=== PATIENT | female | born 1930 | race Caucasian/White ===

== ENCOUNTER 2021-07-24 17:13 | Inpatient (IN) | payer MEDICARE, OTHER ==
[~2021-07-24] VITALS: Ht 167.6 cm; Wt 69.2 kg
[~2021-07-24 17:13] MED LIST: AMLO-187 PO; APIX5TAB PO; ASPI-886 PO; CITA10TA8 PO; LEVO75TA5 PO; METO25TA4 PO; PANT40TA77 PO
[2021-07-24 17:53] LABS: BASO % 0 % (0-3); EOS % 0 % (0-3); HEMATOCRIT 27.1 % (36.0-47.0); HEMOGLOBIN 8.9 g/dL (12.0-15.5); LYMPH # 4.9 x10^3/uL (1.0-4.8); LYMPH % 41 % (24-48); MEAN CORPUSCULAR HEMOGLOBIN 31 pg (25-35); MEAN CORPUSCULAR HGB CONC 33 g/dL (31-37); MEAN CORPUSCULAR VOLUME 95 fL (79-100); MONO # 0.6 x10^3/uL (0.0-1.1); MONO % 5 % (0-9); NEUT # 6.5 x10^3/uL (1.8-7.7); NEUT % 54 % (31-73); PLATELET COUNT 285 x10^3/uL (140-400); RED BLOOD COUNT 2.86 x10^6/uL (3.50-5.40); RED CELL DISTRIBUTION WIDTH 14.5 % (11.5-14.5); WHITE BLOOD COUNT 12.1 x10^3/uL (4.0-11.0)
[2021-07-24 18:04] LABS: CALCIUM 8.7 mg/dL (8.5-10.1); CREATININE 2.2 mg/dL (0.6-1.0); POTASSIUM 5.5 mmol/L (3.5-5.1)
[2021-07-24 18:09] LABS: ALBUMIN 3.5 g/dL (3.4-5.0); MAGNESIUM 2.1 mg/dL (1.8-2.4); TOTAL BILIRUBIN 0.5 mg/dL (0.2-1.0); TOTAL PROTEIN 6.9 g/dL (6.4-8.2)
[2021-07-24] MEDS ORDERED: FUROSEMIDE 20 MG/2 ML VIAL. IVP ONE (19:00)
[2021-07-24] MEDS ORDERED: AZITHROMYCIN 500 MG in IV NORMAL SALINE 250ML 250 ML IV ONE (19:00)
[2021-07-24] MEDS ORDERED: cefTRIAXone IV Push 1 GM VIAL. IVP ONE (19:00)
--- NOTE | 2021-07-24 19:02 | PHYS DOC ---
Past Medical History Additional Past Medical Histor: DVT, colon cancer, home oxygen Past Surgical History: Appendectomy, Cholecystectomy, Hip Replacement, Pacemaker, Tonsillectomy Additional Past Surgical Histo: Clot retrieved from L arm, colon resection Smoking Status: Former Smoker Alcohol Use: None General Adult EDM: Chief Complaint: SHORTNESS OF BREATH HPI: HPI: Patient is a 89 year old female with history of DVT on apixaban, A. fib, pacemaker, CHF EF 45%, dementia who presents with cough and shortness of breath. She does seem to be a poor historian, but provides the following history. Patient states that this has been going on for the past 2 days and is progressively worsened. Is on home O2 2 L/min. Was noted to be hypoxic in the 80s on her home O2 earlier today. She states that she "feels hot", but denies fever. States that she was recently discharged from pacemaker placement and spent 2 weeks in a correction facility. Was discharged to home approximately 4 days ago. Denies any sick contacts. Denies chest pain. Denies lower extremity edema, however there is edema readily apparent on exam. Symptoms are better with sitting upright, worse with lying flat. RN spoke with patient's daughter who adds that her symptoms are worse at night and that she has been complaining about a sacral bed sore that developed at the SNF. Review of Systems: Review of Systems: Constitutional: Denies fever or chills. [] Eyes: Denies change in visual acuity. [] HENT: Denies nasal congestion or sore throat. [] Respiratory: Reports cough and shortness of breath Cardiovascular: Denies chest pain or edema. [] GI: Denies abdominal pain, nausea, vomiting, bloody stools or diarrhea. [] : Denies dysuria. [] Musculoskeletal: Denies back pain or joint pain. [] Integument: Denies rash. [] Neurologic: Denies headache, focal weakness or sensory changes. [] Psychiatric: Denies depression or anxiety. [] Heart Score: C/O Chest Pain: No Current Medications: Current Medications Medications (Trade) Dose Ordered Sig/Tor Start Time Stop Time Status Last Admin Dose Admin Azithromycin 500 mg/Sodium Chloride 250 ml @ 250 mls/hr 1X ONCE 07/24/21 19:00 07/24/21 19:59 UNV Ceftriaxone Sodium (Rocephin) 1 gm 1X ONCE 07/24/21 19:00 07/24/21 19:01 UNV Allergies: Allergies: Allergies Coded Allergies Type Severity Reaction Last Updated Verified Penicillins Allergy Intermediate 07/04/21 Yes Physical Exam: PE: Constitutional: Coughing, appears deconditioned and mildly ill. Nontoxic. No di stress. HENT: Normocephalic, atraumatic Neck: Normal range of motion, no tenderness, supple, no stridor. [] Cardiovascular:Heart rate regular rhythm, no murmur [] Lungs & Thorax: Crackles in the lower lung field Abdomen: Bowel sounds normal, soft, no tenderness, no masses, no pulsatile masses. [] Skin: Warm, dry, no erythema, no rash. [] Extremities: Pitting edema bilaterally to the level of the knee, grossly symmetric. Neurologic: Alert and oriented X 3, normal motor function, normal sensory function, no focal deficits noted. [] Psychologic: Affect normal, judgement normal, mood normal. [] Current Patient Data: Labs: Laboratory Tests Test 07/24/21 17:27 White Blood Count 12.1 x10^3/uL (4.0-11.0) H Red Blood Count 2.86 x10^6/uL (3.50-5.40) L Hemoglobin 8.9 g/dL (12.0-15.5) L Hematocrit 27.1 % (36.0-47.0) L Mean Corpuscular Volume 95 fL (79-100) Mean Corpuscular Hemoglobin 31 pg (25-35) Mean Corpuscular Hemoglobin Concent 33 g/dL (31-37) Red Cell Distribution Width 14.5 % (11.5-14.5) Platelet Count 285 x10^3/uL (140-400) Neutrophils (%) (Auto) 54 % (31-73) Lymphocytes (%) (Auto) 41 % (24-48) Monocytes (%) (Auto) 5 % (0-9) Eosinophils (%) (Auto) 0 % (0-3) Basophils (%) (Auto) 0 % (0-3) Neutrophils # (Auto) 6.5 x10^3/uL (1.8-7.7) Lymphocytes # (Auto) 4.9 x10^3/uL (1.0-4.8) H Monocytes # (Auto) 0.6 x10^3/uL (0.0-1.1) Eosinophils # (Auto) 0.0 x10^3/uL (0.0-0.7) Basophils # (Auto) 0.0 x10^3/uL (0.0-0.2) Sodium Level 135 mmol/L (136-145) L Potassium Level 5.5 mmol/L (3.5-5.1) H Chloride Level 98 mmol/L (98-107) Carbon Dioxide Level 29 mmol/L (21-32) Anion Gap 8 (6-14) Blood Urea Nitrogen 49 mg/dL (7-20) H Creatinine 2.2 mg/dL (0.6-1.0) H Estimated GFR (Cockcroft-Gault) 21.0 BUN/Creatinine Ratio 22 (6-20) H Glucose Level 117 mg/dL (70-99) H Calcium Level 8.7 mg/dL (8.5-10.1) Magnesium Level 2.1 mg/dL (1.8-2.4) Total Bilirubin 0.5 mg/dL (0.2-1.0) Aspartate Amino Transferase (AST) 27 U/L (15-37) Alanine Aminotransferase (ALT) 26 U/L (14-59) Alkaline Phosphatase 47 U/L (46-116) Troponin I High Sensitivity 24 ng/L (4-50) EH-Abb-L-Type Natriuretic Peptide 06198 pg/mL (0-449) H Total Protein 6.9 g/dL (6.4-8.2) Albumin 3.5 g/dL (3.4-5.0) Albumin/Globulin Ratio 1.0 (1.0-1.7) Laboratory Tests 07/24/21 17:27 Laboratory Tests 07/24/21 17:27 Vital Signs: Vital Signs Date Time Temp Pulse Resp B/P (MAP) Pulse Ox O2 Delivery O2 Flow Rate FiO2 07/24/21 17:19 98.3 24 161/81 (107) 98 Nasal Cannula 2.0 98.3 EKG: EKG: Paced rhythm. Rate 65. [] Radiology/Procedures: Radiology/Procedures: [] Impression: [facility] [address] [place], [place] [id number] IMAGING REPORT Signed PATIENT: GEOVANNA GATES MACCOUNT: [id number] : 1930 LOCATION: [facility] AGE: 89 SEX: F EXAM STATUS: ADM IN ORD. PHYSICIAN: VALARIE CASEY DO REASON: dyspnea PROCEDURE: PORTABLE CHEST 1V EXAM: XR CHEST 1V 07/24/2021 6:40 PM CLINICAL INDICATION: Dyspnea COMPARISON: Chest radiograph 07/04/2021 TECHNIQUE: AP upright view of the chest FINDINGS: A single lead pacemaker is unchanged. Cardiomegaly is stable. There are calcifications in the thoracic aorta. The lungs are adequately expanded. No significant change in small bilateral pleural effusions. Slightly increased bilateral peripheral opacities, which could be related to pulmonary vascular congestion or infiltrates. IMPRESSION: 1. Cardiomegaly and small bilateral pleural effusions. 2. Slightly increased peripheral opacities, which could be related to pulmonary vascular congestion or infiltrates. Electronically signed by: Christine Milligan MD (07/24/2021 9:31 PM) [id number] DICTATED and SIGNED BY: CHRISTINE MILLIGAN MD DATE: 07/24/21 [id number] 0 Course & Med Decision Making: Course & Med Decision Making Pertinent Labs and Imaging studies reviewed. (See chart for details) Patient 89-year-old female with history of CHF, A. fib with pacemaker, dementia, DVT on apixaban who presents with cough and shortness of breath. On exam appears volume overloaded with lower extremity edema, lower lung field crackles concerning for CHF exacerbation. White count was mildly elevated, and x-ray was concerning for RML/RLL infiltrate, so CTX and azithro was given. Potassium 5.5. No ekg changes. CKD is stable. Will be addressed with lasix 20 mg and will be admitted to telemetry monitoring. Dragon Disclaimer: Dragon Disclaimer: This electronic medical record was generated, in whole or in part, using a voice recognition dictation system. Departure Departure Impression: Primary Impression: Pneumonia Additional Impressions: CHF (congestive heart failure) Dyspnea Chronic respiratory failure with hypoxia Hyperkalemia CKD (chronic kidney disease) Disposition: ADMITTED INPATIENT Admitting Physician: BRIDGER (Grant) Condition: STABLE Referrals: KASHIF PASTOR (PCP) MEAGAN MENESES MD Jul 24, 2021 19:02
[2021-07-24] MEDS ORDERED: ONDANSETRON PF 4 MG/2 ML VIAL. IVP ONE (20:15)
[2021-07-24 20:45] VITALS: BP 130/74
[2021-07-24] MEDS: APIXABAN 2.5 MG TABLET. PO SCH (21:00)
--- NOTE | 2021-07-24 21:33 | RAD ---
EXAM: XR CHEST 1V 07/24/2021 6:40 PM CLINICAL INDICATION: Dyspnea COMPARISON: Chest radiograph 07/04/2021 TECHNIQUE: AP upright view of the chest FINDINGS: A single lead pacemaker is unchanged. Cardiomegaly is stable. There are calcifications in the thoracic aorta. The lungs are adequately expanded. No significant change in small bilateral pleur al effusions. Slightly increased bilateral peripheral opacities, which could be related to pulmonary vascular congestion or infiltrates. IMPRESSION: 1. Cardiomegaly and small bilateral pleural effusions. 2. Slightly increased peripheral opacities, which could be related to pulmonary vascular congestion o r infiltrates. Electronically signed by: Christine Mliligan MD (07/24/2021 9:31 PM) [id number]
[2021-07-24 23:50] VITALS: BP 166/68
[2021-07-25 01:36] LABS: INFLUENZA A PATIENT NEGATIVE (NEGATIVE); INFLUENZA B PATIENT NEGATIVE (NEGATIVE)
[2021-07-25 03:34] VITALS: BP 130/59
[2021-07-25 07:00] VITALS: BP 149/71
--- NOTE | 2021-07-25 08:26 | EKG ---
[facility] [address] [place] [address] Test Date: 2021-07-24 Test Time: 17:58:48 Pat Name: GEOVANNA GATES Department: Room: 506 Gender: F Non Cdl Driver: : 1930 Requested By: VALARIE CASEY Order Number: [id number] Reading MD: Francesco Palafox Measurements Intervals [place] Rate: 65 P: MN: QRS: -68 QRSD: 160 T: 103 QT: 456 QTc: 475 Interpretive Statements ATRIAL FIBRILLATION DEMAND VENTRICULAR PACING ABNORMAL LEFT AXIS DEVIATION NON SPECIFIC INTRAVENTRICULAR BLOCK QRS(T) CONTOUR ABNORMALITY CONSISTENT WITH ANTEROLATERAL INFARCT PROBABLY OLD ABNORMAL ECG Electronically Signed On 07-28-2021 14:11:42 ENGINEER CHIEF by Francesco Palafox
[2021-07-25] MEDS: APIXABAN 2.5 MG TABLET. PO SCH ×2 (10:18→20:40)
--- NOTE | 2021-07-25 10:56 | HP ---
DATE OF SERVICE: 07/25/2021 ADMIT DATE: 07/24/2021 CHIEF COMPLAINT: Shortness of breath. HISTORY OF PRESENT ILLNESS: The patient is a pleasant elderly female who presented to the ER last night with shortness of breath. While in the ER, we did some imaging and some labs. Her chest x-ray is showing vascular congestion and pneumonia and effusions. Her BNP level was high at 14,357. I discussed the case with the ER physician. We are admitting the patient. PAST MEDICAL HISTORY: DVT, colon cancer, hypoxia, she is on home oxygen, appendectomy, cholecystectomy, hip replacement, pacemaker, tonsillectomy, left arm clot removed, colon resection, previous tobacco abuse, chronic anticoagulation, GERD, hypothyroidism. ALLERGIES: PENICILLIN. FAMILY HISTORY: Diabetes. SOCIAL HISTORY: She quit smoking. No drink or drugs. MEDICATIONS: Reviewed. Please refer to the MRAD. REVIEW OF SYSTEMS: GENERAL: No history of weight change, weakness or fevers. SKIN: No bruising, hair changes or rashes. EYES: No blurred, double or loss of vision. NOSE AND THROAT: No history of nosebleeds, hoarseness or sore throat. HEART: No history of palpitations, chest pain or shortness of breath on exertion. LUNGS: She complains of shortness of breath. GASTROINTESTINAL: Denies changes in appetite, nausea, vomiting, diarrhea or constipation. GENITOURINARY: No history of frequency, urgency, hesitancy or nocturia. NEUROLOGIC: Denies history of numbness, tingling, tremor or weakness. PSYCHIATRIC: No history of panic, anxiety or depression. ENDOCRINE: No history of heat or cold intolerance, polyuria or polydipsia. EXTREMITIES: Denies muscle weakness, joint pain, pain on walking or stiffness. PHYSICAL EXAMINATION: VITALS: Within normal limits and are stable. GENERAL: No apparent distress. Alert and oriented. HEENT: Normal cephalic atraumatic, external auditory canals are patent. Eyes: Extraocular muscles are intact, pupils are equally round and reactive to light and accommodation. MUSCULOSKELETAL: Well developed, well nourished, good range of motion. ENDOCRINE: No thyromegaly was palpated. LYMPHATICS: No cervical chain or axillary nodes were noted. HEMATOPOIETIC: No bruising. NECK: Supple, no JVD, no thyromegaly was noted. LUNGS: She has bibasilar crackles. HEART: RRR, S1, S2 present. Peripheral pulses intact, no obvious murmurs were noted. ABDOMEN: Soft, nontender. Positive bowel sounds, no organomegaly, normal bowel sounds. EXTREMITIES: Without any cyanosis, clubbing, or edema. Pedal pulses intact, Homans sign is negative. NEUROLOGIC: Normal speech, normal tone. A and O x 3, moves all extremities, no obvious focal deficits. PSYCHIATRIC: Normal affect, normal mood. Stable. SKIN: No ulcerations or rashes, good skin turgor, no jaundice. VASCULAR: Good capillary refill, neurovascular bundle appears to be intact. LABORATORY DATA: Electrolytes: Sodium 135, potassium 5.5, BUN is high at 49, creatinine is 2.2. White count 12, hemoglobin 8.9, platelets 285. COVID testing is negative. Chest x-ray shows vascular congestion, some small pleural effusions and a possible pneumonia. ASSESSMENT AND PLAN: Multifactorial respiratory failure and acute on chronic renal failure. The patient has been admitted. We are starting IV antibiotics. Consult Nephrology. Cardiac monitoring. O2 per nasal cannula. She got 1 dose of Lasix. We will consult Cardiology and see if they would like to continue the Lasix. Home meds. Deep venous thrombosis prophylaxis. Full code. Prognosis guarded. JUAN PABLO/EDUARD DR: [place] TID: [id number]
[2021-07-25 11:00] VITALS: BP 144/63
--- NOTE | 2021-07-25 13:43 | NUR ---
SS following for discharge planning. SS reviewed pt chart and discussed with pt RN. Pt is skilled rehabilitation resident from [facility], ; fax [phone]. COVID19 test pending for placement. Pt is currently requiring oxygen at four liters nasal canula. PT/OT orders requested for placement. Cardiology and Nephrology consulted. SS will continue to follow for discharge planning.
[2021-07-25 15:00] VITALS: BP 130/62
[2021-07-25] MEDS ORDERED: APIX2.5T PO (16:26)
[2021-07-25] MEDS ORDERED: LEVO100T5 PO (16:26)
--- NOTE | 2021-07-25 16:42 | NUR ---
Nurse's note: Spoke with the patient's daughter, Sara Geronimo twice today. This nurse gave updates and clarified patient's medications. Per the patient's daughter, Citlaly had pressure sores on her bottom since discharge from the rehab facility.
[2021-07-25] MEDS ORDERED: DOCU100C28 PO (17:01)
[2021-07-25] MEDS: AZITHROMYCIN 250 MG TABLET. PO SCH (18:04)
[2021-07-25] MEDS: ASPIRIN ENTERIC COATED 81 MG TABLET.DR. PO SCH (18:04)
[2021-07-25] MEDS: CITALOPRAM 10 MG TABLET. PO SCH (18:04)
[2021-07-25 19:00] VITALS: BP 133/71
[2021-07-25] MEDS: cefTRIAXone IV Push 1 GM VIAL. IVP SCH (20:33)
[2021-07-25] MEDS: ONDANSETRON PF 4 MG/2 ML VIAL. IVP PRN (20:33)
[2021-07-25] MEDS: DOCUSATE SODIUM 100 MG CAPSULE. PO SCH (20:40)
[2021-07-25] MEDS: METOPROLOL TART IMMED RELEASE 25 MG TABLET. PO SCH (20:40)
[2021-07-25 23:00] VITALS: BP 130/72
[2021-07-26] MEDS: ACETAMINOPHEN 325 MG TABLET. PO PRN ×3 (01:59→19:35)
[2021-07-26] MEDS: ONDANSETRON PF 4 MG/2 ML VIAL. IVP PRN ×2 (02:00→09:30)
[2021-07-26] MEDS: fentaNYL PF VIAL 100 MCG/2 ML VIAL IVP PRN (02:30)
[2021-07-26 03:00] VITALS: BP 146/67
[2021-07-26 07:00] VITALS: BP 135/78
--- NOTE | 2021-07-26 10:58 | PDOC ---
[employer] PROGRESS NOTE Date of Service DOS: DATE: 07/26/21 TIME: 10:49 Chief Complaint Chief Complaint Multifactorial respiratory failure with pneumonia and CHF DVT, colon cancer, hypoxia, she is on home oxygen, appendectomy, cholecystectomy, hip replacement, pacemaker, tonsillectomy, left arm clot removed, colon resection, previous tobacco abuse, chronic anticoagulation, GERD, hypothyroidism. History of Present Illness History of Present Illness 07/26/2021 Patient seen and examined Discussed with RN Chart reviewed Vitals/I&O Vitals/I&O: Vital Signs Date Time Temp Pulse Resp B/P (MAP) Pulse Ox O2 Delivery O2 Flow Rate FiO2 07/26/21 07:00 98.1 71 18 135/78 (97) 97 Nasal Cannula 5.0 98.1 I & O 07/25/21 07/25/21 07/26/21 15:00 23:00 07:00 Output Total 200 ml Balance -200 ml Physical Exam General: mild distress, Other (Pleasant somewhat confused) Heart: Regular rate Lungs: Crackles Abdomen: Normal bowel sounds Extremities: No clubbing Skin: No rashes Assessment and Plan Assessmemt and Plan Problems Medical Problems: (1) CHF (congestive heart failure) Status: Acute (2) Chronic respiratory failure with hypoxia Status: Acute (3) CKD (chronic kidney disease) Status: Acute (4) Dyspnea Status: Acute (5) Hyperkalemia Status: Acute (6) Pneumonia Status: Acute Multifactorial respiratory failure with pneumonia and CHF DVT, colon cancer, hypoxia, she is on home oxygen, appendectomy, cholecystectomy, hip replacement, pacemaker, tonsillectomy, left arm clot removed, colon resection, previous tobacco abuse, chronic anticoagulation, GERD, hypothyroidism. Plan IV antibiotics Plus minus Lasix per cardiology Cardiac monitoring Beta agonist Oxygen Home meds DVT prophylaxis Full code Trend labs Encourage p.o. intake Probably need [facility] in a couple days Long-term prognosis guarded Comment Review of Relevant I have reviewed the following items yuly (where applicable) has been applied. Medications: Current Medications Medications (Trade) Dose Ordered Sig/Tor Route PRN Reason Start Time Stop Time Status Last Admin Dose Admin Amlodipine Besylate (Norvasc) 10 mg DAILY PO 07/25/21 17:00 07/25/21 18:04 Aspirin (Ecotrin) 81 mg DAILYWBKFT PO 07/25/21 17:00 07/25/21 18:04 Citalopram Hydrobromide (CeleXA) 10 mg DAILY PO 07/25/21 17:00 07/25/21 18:04 Ceftriaxone Sodium (Rocephin) 1 gm Q24H IVP 07/25/21 20:00 07/25/21 20:33 Azithromycin (Zithromax) 250 mg DAILY PO 07/25/21 19:00 07/28/21 09:01 07/25/21 18:04 Ondansetron HCl (Zofran) 4 mg PRN Q4HRS PRN IVP NAUSEA/VOMITING 07/25/21 20:30 07/26/21 09:30 Acetaminophen (Tylenol) 650 mg PRN Q6HRS PRN PO MILD PAIN / TEMP > 100.3'F 07/26/21 01:45 07/26/21 01:59 Fentanyl Citrate (Fentanyl 2ml Vial) 25 mcg PRN Q3HRS PRN IVP SEVERE PAIN 7-10 07/26/21 02:30 07/26/21 02:30 Justifications for Admission Other Justification JENNIE CHACON III DO Jul 26, 2021 10:58
[2021-07-26 11:00] VITALS: BP 168/76
--- NOTE | 2021-07-26 11:17 | PDOC2 ---
CONSULT Date of Consult Date of Consult DATE: 07/26/21 TIME: 10:54 History of Present Illness Reason for Visit: Patient is a 89 year old female with history of DVT on apixaban, A. fib, pacemaker, CHF EF 45%, dementia who presents with cough and shortness of breath.She is a poor historian Above symptoms were going on for 2 days prior to coming to the ER and progressively worsened. Breathing better with sitting upright, worse with lying flatShe is on home O2 2 L/min. Was noted to be hypoxic in the 80s on her home O2 earlier today. No reported fever.She was recently discharged from pacemaker placement and spent 2 weeks in a residential facility. Was discharged to home approximately 4 days ago.Denies any sick contacts. Denies chest pain.Denies lower extremity edema, however there is edema readily apparent on exam. Denies any N/V/D. No abdominal pain . No urinary complaints She c/o sacral bed sore that developed at the SNF. Resting in bed. States she cant breath. Appears comfortable . On O2 by NC Past Medical History Cardiovascular: AFIB, CAD, CHF, HTN, Hyperlipidemia Heme/Onc: Other Musculoskeletal: Osteoarthritis Past Surgical History Past Surgical History: Other Family History Family History: Family History Unknown Social History ALCOHOL: none Drugs: None Lives: with Family Current Problem List Problem List Problems Medical Problems: (1) CHF (congestive heart failure) Status: Acute (2) Chronic respiratory failure with hypoxia Status: Acute (3) CKD (chronic kidney disease) Status: Acute (4) Dyspnea Status: Acute (5) Hyperkalemia Status: Acute (6) Pneumonia Status: Acute Current Medications Current Medications Current Medications Ceftriaxone Sodium (Rocephin) 1 gm 1X ONCE IVP Last administered on 07/24/21at 19:54; Start 07/24/21 at 19:00; Stop 07/24/21 at 19:01; Status DC Azithromycin 500 mg/Sodium Chloride 250 ml @ 250 mls/hr 1X ONCE IV Last administered on 07/24/21at 19:48; Start 07/24/21 at 19:00; Stop 07/24/21 at 19:59; Status DC Furosemide (Lasix) 20 mg 1X ONCE IVP Last administered on 07/24/21at 19:53; Start 07/24/21 at 19:00; Stop 07/24/21 at 19:01; Status DC Apixaban (Eliquis) 2.5 mg BID PO Last administered on 07/25/21at 10:18; Start 07/24/21 at 21:00 Ondansetron HCl (Zofran) 4 mg 1X ONCE IVP Last administered on 07/24/21at 20:07; Start 07/24/21 at 20:15; Stop 07/24/21 at 20:16; Status DC Amlodipine Besylate (Norvasc) 10 mg DAILY PO Last administered on 07/25/21at 18:04; Start 07/25/21 at 17:00 Aspirin (Ecotrin) 81 mg DAILYWBKFT PO Last administered on 07/25/21at 18:04; Start 07/25/21 at 17:00 Citalopram Hydrobromide (CeleXA) 10 mg DAILY PO Last administered on 07/25/21at 18:04; Start 07/25/21 at 17:00 Levothyroxine Sodium (Synthroid) 100 mcg DAILY07 PO ; Start 07/26/21 at 07:00 Metoprolol Tartrate (Lopressor) 25 mg BID PO ; Start 07/25/21 at 21:00 Pantoprazole Sodium (Protonix) 40 mg DAILYAC PO ; Start 07/26/21 at 07:30 Ascorbic Acid (Vitamin C) 500 mg DAILY PO ; Start 07/26/21 at 09:00 Multivitamins (Thera M Plus) 1 tab DAILY PO ; Start 07/26/21 at 09:00 Ceftriaxone Sodium (Rocephin) 1 gm Q24H IVP Last administered on 07/25/21at 20:33; Start 07/25/21 at 20:00 Azithromycin (Zithromax) 250 mg DAILY PO Last administered on 07/25/21at 18:04; Start 07/25/21 at 19:00; Stop 07/28/21 at 09:01 Docusate Sodium (Colace) 100 mg BID PO ; Start 07/25/21 at 21:00 Ondansetron HCl (Zofran) 4 mg PRN Q4HRS PRN IVP NAUSEA/VOMITING Last administered on 07/26/21at 09:30; Start 07/25/21 at 20:30 Acetaminophen (Tylenol) 650 mg PRN Q6HRS PRN PO MILD PAIN / TEMP > 100.3'F Last administered on 07/26/21at 01:59; Start 07/26/21 at 01:45 Fentanyl Citrate (Fentanyl 2ml Vial) 25 mcg PRN Q3HRS PRN IVP SEVERE PAIN 7-10 Last administered on 07/26/21at 02:30; Start 07/26/21 at 02:30 Active Scripts Active Celexa (Citalopram Hydrobromide) 10 Mg Tablet 10 Mg PO DAILY 30 Days Aspirin Ec (Aspirin) 81 Mg Tablet. 81 Mg PO DAILYWBKFT 30 Days Amlodipine Besylate 10 Mg Tablet 10 Mg PO DAILY 30 Days Reported Docusate Sodium 100 Mg Capsule 1 Cap PO BID 15 Days Levothyroxine Sodium 100 Mcg Tablet 1 Tab PO DAILY Eliquis (Apixaban) 2.5 Mg Tablet 2.5 Mg PO BID Metoprolol Tartrate 25 Mg Tablet 1 Tab PO BID Pantoprazole Sodium (Pantoprazole Sodium) 40 Mg Tablet. 40 Mg PO DAILYAC Allergies Allergies: Coded Allergies: Penicillins (Verified Allergy, Intermediate, 07/04/21) ROS Review of System As per HPI, rest of the ROS is negative Physical Exam Physical Exam General: No acute distress HEENT: Mucous membr. moist/pink Neck Supple Abd soft, NT Lungs CTA, non labored CV S1S2 Skin: No breakdown, No significant lesion Neuro: Grossly normal. Has Dx of Dementia Psych/Mental Status: Mental status NL, Mood NL Extremities: No cyanosis, Other (1-2+ bilateral LE pitting edema) Vital Signs Vital Signs Date Time Temp Pulse Resp B/P (MAP) Pulse Ox O2 Delivery O2 Flow Rate FiO2 07/26/21 07:00 98.1 71 18 135/78 (97) 97 Nasal Cannula 5.0 98.1 Assessment & Plan ENMA vs CKD - Cardiorenal Baseline Creat in Jun 2021 2.1 ; Renal function stable at presentation. No labs since 07/24 Baseline renal function unava ilable . Maintain fluid balance. Strict I/O ( ? accuracy ) , supportive care, avoid Nephrotoxins . Check Renal US HyperKalemia K 5.5 POA; No labs since 07/24 . FU labs Acute Resp Failure - O2 5 Lts by NC (Home 02 2 lts ) Abnormal CxR Cardiomegaly and small bilateral pleural effusions. Slightly increased peripheral opacities, which could be related to pulmonary vascular c ongestion or infiltrates. Cardiology consulted Atrial fibrillation - per cardiology SSS, tachy-chang syndrome with significant pause. S/p single-chamber permanent pacemaker implantation recently Valvular heart disease; echo with mild to moderate and mild to moderate TR. Estimated PAP 70-75 mmHg. Cardiomyopathy; LVEF 45% with global hypokinesis of the LV Dementia Hypertension, labile Labs Labs Laboratory Tests Test 07/24/21 17:27 07/25/21 00:55 White Blood Count 12.1 x10^3/uL (4.0-11.0) Red Blood Count 2.86 x10^6/uL (3.50-5.40) Hemoglobin 8.9 g/dL (12.0-15.5) Hematocrit 27.1 % (36.0-47.0) Mean Corpuscular Volume 95 fL (79-100) Mean Corpuscular Hemoglobin 31 pg (25-35) Mean Corpuscular Hemoglobin Concent 33 g/dL (31-37) Red Cell Distribution Width 14.5 % (11.5-14.5) Platelet Count 285 x10^3/uL (140-400) Neutrophils (%) (Auto) 54 % (31-73) Lymphocytes (%) (Auto) 41 % (24-48) Monocytes (%) (Auto) 5 % (0-9) Eosinophils (%) (Auto) 0 % (0-3) Basophils (%) (Auto) 0 % (0-3) Neutrophils # (Auto) 6.5 x10^3/uL (1.8-7.7) Lymphocytes # (Auto) 4.9 x10^3/uL (1.0-4.8) Monocytes # (Auto) 0.6 x10^3/uL (0.0-1.1) Eosinophils # (Auto) 0.0 x10^3/uL (0.0-0.7) Basophils # (Auto) 0.0 x10^3/uL (0.0-0.2) Sodium Level 135 mmol/L (136-145) Potassium Level 5.5 mmol/L (3.5-5.1) Chloride Level 98 mmol/L (98-107) Carbon Dioxide Level 29 mmol/L (21-32) Anion Gap 8 (6-14) Blood Urea Nitrogen 49 mg/dL (7-20) Creatinine 2.2 mg/dL (0.6-1.0) Estimated GFR (Cockcroft-Gault) 21.0 BUN/Creatinine Ratio 22 (6-20) Glucose Level 117 mg/dL (70-99) Calcium Level 8.7 mg/dL (8.5-10.1) Magnesium Level 2.1 mg/dL (1.8-2.4) Total Bilirubin 0.5 mg/dL (0.2-1.0) Aspartate Amino Transf (AST/SGOT) 27 U/L (15-37) Alanine Aminotransferase (ALT/SGPT) 26 U/L (14-59) Alkaline Phosphatase 47 U/L (46-116) Troponin I High Sensitivity 24 ng/L (4-50) XV-Vyg-Y-Type Natriuretic Peptide 58331 pg/mL (0-449) Total Protein 6.9 g/dL (6.4-8.2) Albumin 3.5 g/dL (3.4-5.0) Albumin/Globulin Ratio 1.0 (1.0-1.7) Coronavirus (COVID-19)(PCR) Not detected (NOT DETECTD) Influenza Type A Antigen Negative (NEGATIVE) Influenza Type B Antigen Negative (NEGATIVE) SARS-CoV-2 Antigen (Rapid) Negative (NEGATIVE) Review All relevant outside records, renal labs, imaging studies, telemetry/EKG's were reviewed. Images Images EXAM: XR CHEST 1V 07/24/2021 6:40 PM CLINICAL INDICATION: Dyspnea COMPARISON: Chest radiograph 07/04/2021 TECHNIQUE: AP upright view of the chest FINDINGS: A single lead pacemaker is unchanged. Cardiomegaly is stable. There are calcifications in the thoracic aorta. The lungs are adequately expanded. No significant change in small bilateral pleural effusions. Slightly increased bilateral peripheral opacities, which could be related to pulmonary vascular congestion or infiltrates. IMPRESSION: 1. Cardiomegaly and small bilateral pleural effusions. 2. Slightly increased peripheral opacities, which could be related to pulmonary vascular congestion or infiltrates. RITA KIRAN MD Jul 26, 2021 11:17
[2021-07-26] MEDS: MULTIVITAMIN with MINERAL TABLET. PO SCH (11:30)
[2021-07-26] MEDS: LEVOTHYROXINE 100 MCG TABLET PO SCH (11:31)
[2021-07-26] MEDS: CITALOPRAM 10 MG TABLET. PO SCH (11:31)
[2021-07-26] MEDS: PANTOPRAZOLE 40 MG TABLET.DR. PO SCH (11:31)
[2021-07-26] MEDS: ASCORBIC ACID 500 MG TABLET PO SCH (11:31)
[2021-07-26] MEDS: AZITHROMYCIN 250 MG TABLET. PO SCH (11:31)
[2021-07-26] MEDS: DOCUSATE SODIUM 100 MG CAPSULE. PO SCH ×2 (11:31→20:31)
[2021-07-26] MEDS: ASPIRIN ENTERIC COATED 81 MG TABLET.DR. PO SCH (11:31)
[2021-07-26] MEDS: METOPROLOL TART IMMED RELEASE 25 MG TABLET. PO SCH ×2 (11:31→20:39)
[2021-07-26] MEDS: APIXABAN 2.5 MG TABLET. PO SCH ×2 (11:31→20:39)
--- NOTE | 2021-07-26 11:59 | NUR ---
Wound/Ostomy Care Wound Type/Assessment: Wound care consult for coccyx wound. 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 Cleansed, measured, and assessed wound. Treatment Recommendations/Plan: Cleanse wound, apply honey alginate and foam dressing. Change every 2-3 days. Education provided: PU prevention and WC POC discussed with pt. Offloading surface/device: TQ2H, pt is a self turn. Float heels Recommended Referrals/Tests: na Discharge Recommendations for dressings: see above
--- NOTE | 2021-07-26 12:17 | PDOC2 ---
APRYL KU ACQUISITION COST ESTIMATOR 07/26/21 1217: CARDIAC CONSULT DATE OF CONSULT Date of Consult DATE: 07/26/21 TIME: 12:01 REASON FOR CONSULT Reason for Consult: CHF REFERRING PHYSICIAN Referring Physician: Grant SOURCE Source: Chart review HISTORY OF PRESENT ILLNESS HISTORY OF PRESENT ILLNESS This is an 89 yo female admitted for complains shortness of breath and cough. No chest pain. She was noted with hypoxia with O2 sat in the 80s despite home O2. This has been ongoing in the last 3 days. She was at SNU and discharge to home about 4 days ago. She is known for presumed NICM with EF 45% with tachybrady syndrome with AFIB and recently had a PPM late last month. She has orthopnea but no significnat leg swelling. She is a poor historian. Currently she still have some SOA. but no CP. PAST MEDICAL HISTORY Cardiovascular: CAD, CHF, HTN, Hyperlipidemia, Aortic stenosis, Pulmonary hypertension, Other (tachybrady syndrome) Pulmonary: Pulmonary embolus CENTRAL NERVOUS SYSTEM: Dementia Heme/Onc: Other (DVT) Musculoskeletal: Osteoarthritis Renal/: Chronic renal insuff PAST SURGICAL HISTORY Past Surgical History: Pacemaker, Other (bowel resection) FAMILY HISTORY Family History: Family History Unknown SOCIAL HISTORY Smoke: No ALCOHOL: none Drugs: None Lives: with Family CURRENT MEDICATIONS CURRENT MEDICATIONS Current Medications Medications (Trade) Dose Ordered Sig/Tor Route PRN Reason Start Time Stop Time Status Last Admin Dose Admin Amlodipine Besylate (Norvasc) 10 mg DAILY PO 07/25/21 17:00 07/26/21 11:30 Aspirin (Ecotrin) 81 mg DAILYWBKFT PO 07/25/21 17:00 07/26/21 11:31 Citalopram Hydrobromide (CeleXA) 10 mg DAILY PO 07/25/21 17:00 07/26/21 11:31 Levothyroxine Sodium (Synthroid) 100 mcg DAILY07 PO 07/26/21 07:00 07/26/21 11:31 Metoprolol Tartrate (Lopressor) 25 mg BID PO 07/25/21 21:00 07/26/21 11:31 Pantoprazole Sodium (Protonix) 40 mg DAILYAC PO 07/26/21 07:30 07/26/21 11:31 Ascorbic Acid (Vitamin C) 500 mg DAILY PO 07/26/21 09:00 07/26/21 11:31 Multivitamins (Thera M Plus) 1 tab DAILY PO 07/26/21 09:00 07/26/21 11:30 Ceftriaxone Sodium (Rocephin) 1 gm Q24H IVP 07/25/21 20:00 07/25/21 20:33 Azithromycin (Zithromax) 250 mg DAILY PO 07/25/21 19:00 07/28/21 09:01 07/26/21 11:31 Docusate Sodium (Colace) 100 mg BID PO 07/25/21 21:00 07/26/21 11:31 Ondansetron HCl (Zofran) 4 mg PRN Q4HRS PRN IVP NAUSEA/VOMITING 07/25/21 20:30 07/26/21 09:30 Acetaminophen (Tylenol) 650 mg PRN Q6HRS PRN PO MILD PAIN / TEMP > 100.3'F 07/26/21 01:45 07/26/21 01:59 Fentanyl Citrate (Fentanyl 2ml Vial) 25 mcg PRN Q3HRS PRN IVP SEVERE PAIN 7-10 07/26/21 02:30 07/26/21 02:30 ALLERGIES ALLERGIES: Coded Allergies: Penicillins (Verified Allergy, Intermediate, 07/04/21) ROS Review of System limited poor historian PHYSICAL EXAM General: Alert, Cooperative, No acute distress HEENT: Atraumatic, Mucous membr. moist/pink Lungs: Other (basilar crackles) Heart: Other (AFIB with 4/6 ARANZA systolic murmur) Abdomen: Soft Extremities: No cyanosis, Other (trace to 1+ bilateral LE pitting edema) Skin: No rashes Neuro: Normal speech, Sensation intact Psych/Mental Status: Other (pleasant, appears confused) MUSCULOSKELETAL: Osteoarthritic changes both hands VITALS/I&O VITALS/I&O: Vital Signs Date Time Temp Pulse Resp B/P (MAP) Pulse Ox O2 Delivery O2 Flow Rate FiO2 07/26/21 11:31 71 135/78 07/26/21 08:00 Nasal Cannula 5.0 07/26/21 07:00 98.1 18 97 98.1 I & O 07/25/21 07/25/21 07/26/21 15:00 23:00 07:00 Output Total 200 ml Balance -200 ml ECHOCARDIOGRAM ECHOCARDIOGRAM <Conclusion> The ejection fraction is mildly impaired. Estimated ejection fraction 45%. There is global hypokinesis of the left ventricle. There is severe valvular aortic stenosis visually. By doppler criteria, there is mild to moderate stenosis with MG of 20 mm Hg. Doppler and Color Flow revealed mild ro moderate tricuspid regurgitation. Estimated PAP 70-75 mmHg. Doppler and Color Flow revealed mild pulmonic valvular regurgitation. There is a small pericardial effusion without echocardiographic evidence of tamponade. DATE: 07/02/21 [id number] ASSESSMENT/PLAN ASSESSMENT/PLAN 1 Acute on chronic systolic/systolic CHF: still feels some SOA 2. ENMA with hyperkalemia: nephrology consulted 3. recent PE 4. Valvular heart disease; echo with mild to moderate and mild to moderate TR. Estimated PAP 70-75 mmHg. 5. Cardiomyopathy; LVEF 45% with global hypokinesis of the LV 6. Dementia 7. Hypertension, labile episodes 8. SSS, tachy-chang syndrome: S/P PPM biotronik 9. severe pulmonary HTN 10. Persistent AFIB: rate controlled with intermittent pacing 11. PPM in situ: on 07/03/2021 left chest incision well approximated with steristrips. LUE sling in place Recommendations Presently with nausea and with small vomit, would not be able to tolerate kayaxelate at this time, If not able to keep anything down then will start IVF maintenance. Still has SOA. albuterol x1 and lasix x1 Continue eliquis low dose. Metoprolol for rate control No ACEi/ARB Follow up in our office with Dr. Arboleda as scheduled FELIPE ARBOLEDA MD 07/26/21 1427: CARDIAC CONSULT ASSESSMENT/PLAN ASSESSMENT/PLAN Patient seen and examined. Agree with [facility]'s assessment and plan. Acute on chronic systolic heart failure better compensated Persistent atrial fibrillation rate controlled Nephrology following for acute renal insufficiency SSS s/p PPM clinically stable Continue Eliquis for stroke prophylaxis Thank you for your consultation APRYL KU APRN Jul 26, 2021 12:17 FELIPE ARBOLEDA MD Jul 26, 2021 14:27
--- NOTE | 2021-07-26 12:44 | RAD ---
EXAM: Renal sonogram. HISTORY: Acute renal injury. TECHNIQUE: Sonographic imaging the kidneys and bladder was performed. COMPARISON: None. FINDINGS: The kidneys are normal in size. No solid or cystic renal lesion is seen. There is no hydron ephrosis. The bladder is unremarkable. IMPRESSION: Sonographically unremarkable kidneys. Electronically signed by: Alyssa Kulkarni MD (07/26/2021 12:41 PM) [id number]
[2021-07-26 13:29] LABS: CALCIUM 8.6 mg/dL (8.5-10.1); CREATININE 2.3 mg/dL (0.6-1.0)
[2021-07-26 13:32] LABS: POTASSIUM 5.6 mmol/L (3.5-5.1)
[2021-07-26] MEDS ORDERED: FUROSEMIDE 40 MG/4 ML VIAL. IVP ONE (13:45)
[2021-07-26] MEDS: ALBUTEROL SULFATE 2.5 MG/3 ML NEBU. NEB PRN ×3 (14:04→22:00)
[2021-07-26 15:00] VITALS: BP 134/60
--- NOTE | 2021-07-26 16:19 | NUR ---
SW following. Discussed with RN, per Esthela () note pt from [facility] - SW unable to reach [facility] to verify, COVID-19 negative. No PT/OT ordered - SW requesting this be ordered. KATEY will continue to follow. Addendum: 07/29/21 at 0809 by GREYSON DEL TORO Late note - KATEY spoke with Roxy at [facility], pt was discharged home from [facility] on 07/22, had in fact appealed her discharge and insurance denied her appeal.
[2021-07-26 19:00] VITALS: BP 125/58
[2021-07-26] MEDS: cefTRIAXone IV Push 1 GM VIAL. IVP SCH (20:39)
[2021-07-26] MEDS: LACTOBACILLUS RHAMNOSUS GG 1 CAPSULE. PO SCH (20:39)
--- NOTE | 2021-07-26 20:45 | NUR ---
Pt given HS meds crushed in applesauce. Pt took a drink of water afterwards, and started coughing/gagging after swallowing. Pt became diaphoretic and c/o SOA and chest pain. Oxygen level down to 64% on 5L/NC, oxygen turned up to 15L/NC with minimal increase in oxygen level so NRB placed at 15L as well. Encouraged pt to cough, unable to take a deep breath. Rapid response called, see note from [facility].
--- NOTE | 2021-07-26 21:35 | NUR ---
Rapid response note: Pt started to cough and vomit after taking evening meds that were crushed and placed in applesauce and taking a drink of water. Pt c/o chest pain briefly after vomiting and was diaphoretic. O2 increased to 15 liters NC and 15 liters Non rebreather with sats in the mid to upper 80's. EKG obtained with no acute changes and a chest xray ordered. O2 sats improved to upper 90's and O2 decreased to [address] Mcneill notified of pt condition and of EKG and chest xray orders and sats in the low 90's on 12 liters. Instructed to leave pt on unit, to call with chest xray results if it is worsening for lasix orders, get daily weights, and to keep pt head elevated tonight. Pt remained alert and oriented the entire time and denies any pain. O2 decreased to 10L NC and sats are in the mid 90's.
[2021-07-26 23:00] VITALS: BP 122/66
--- NOTE | 2021-07-26 23:47 | RAD ---
XR CHEST 1V History: Low O2 sat Comparison: 07/24/2021. Technique: Portable AP radiograph of the chest. Findings: The lungs are adequately inflated. There is redemonstrated left greater than right pleural effusions. Lower lobe and perihilar opacities appear increased from comparison. Left chest single lead cardiac pacemaker. No pneumothorax. Enlarged cardiac silhouette. No acute osseous abnormality. Impression: 1. Redemonstrated left greater than right pleural effusions with increasing perihilar and basilar op acities. Findings may represent pulmonary edema. Superimposed infection cannot be excluded.. Electronically signed by: Sohan Sapp MD (07/26/2021 11:45 PM) [facility]
[2021-07-27 03:28] VITALS: BP 131/71
[2021-07-27 05:27] LABS: CALCIUM 8.4 mg/dL (8.5-10.1); CREATININE 2.4 mg/dL (0.6-1.0); POTASSIUM 5.1 mmol/L (3.5-5.1)
[2021-07-27 07:00] VITALS: BP 133/77
[2021-07-27] MEDS: PANTOPRAZOLE 40 MG TABLET.DR. PO SCH (08:47)
[2021-07-27] MEDS: METOPROLOL TART IMMED RELEASE 25 MG TABLET. PO SCH ×2 (08:47→20:20)
[2021-07-27] MEDS: CITALOPRAM 10 MG TABLET. PO SCH (08:47)
[2021-07-27] MEDS: AZITHROMYCIN 250 MG TABLET. PO SCH (08:47)
[2021-07-27] MEDS: ASPIRIN ENTERIC COATED 81 MG TABLET.DR. PO SCH (08:47)
[2021-07-27] MEDS: LACTOBACILLUS RHAMNOSUS GG 1 CAPSULE. PO SCH ×2 (08:47→20:20)
[2021-07-27] MEDS: DOCUSATE SODIUM 100 MG CAPSULE. PO SCH ×2 (08:48→20:20)
[2021-07-27] MEDS: APIXABAN 2.5 MG TABLET. PO SCH ×2 (08:48→20:20)
[2021-07-27] MEDS: LEVOTHYROXINE 100 MCG TABLET PO SCH (08:48)
[2021-07-27] MEDS: ASCORBIC ACID 500 MG TABLET PO SCH (08:48)
[2021-07-27] MEDS: MULTIVITAMIN with MINERAL TABLET. PO SCH (08:48)
--- NOTE | 2021-07-27 10:48 | PDOC ---
[employer] PROGRESS NOTE Date of Service DOS: DATE: 07/27/21 TIME: 10:42 Chief Complaint Chief Complaint Multifactorial respiratory failure with pneumonia and CHF Appendectomy Cholecystectomy Hip replacement Pacemaker Tonsillectomy Left arm clot removed Colon resection Previous tobacco abuse Chronic anticoagulation GERD Hypothyroidism History of Present Illness History of Present Illness 07/27/2021 Patient seen and examined at bedside this morning Patient states she "still is not breathing well" Discussed with RN RN states patient had a rapid response yesterday Chart reviewed 07/26/2021 Patient seen and examined Discussed with RN Chart reviewed Vitals/I&O Vitals/I&O: Vital Signs Date Time Temp Pulse Resp B/P (MAP) Pulse Ox O2 Delivery O2 Flow Rate FiO2 07/27/21 08:47 78 133/77 07/27/21 07:00 98.0 20 98 Nasal Cannula 98.0 07/26/21 22:30 8.0 I & O 07/26/21 07/26/21 07/27/21 15:00 23:00 07:00 Intake Total 120 ml 50 ml Output Total 200 ml Balance 120 ml -150 ml Physical Exam General: Alert, Cooperative, moderate distress (Patient is short of breath; Exhibits 3-4 word dyspnea) Heart: Other (AFIB with 4/6 ARANZA systolic murmur) Lungs: Wheezing (Bilateral wheezing, breathing through pursed lips), Crackles Abdomen: Soft Extremities: No cyanosis, Other (trace to 1+ bilateral LE pitting edema) Skin: No rashes Labs Labs: Laboratory Tests Test 07/26/21 12:40 07/26/21 21:02 07/27/21 04:20 Sodium Level 142 mmol/L (136-145) 141 mmol/L (136-145) Potassium Level 5.6 mmol/L (3.5-5.1) 5.1 mmol/L (3.5-5.1) Chloride Level 102 mmol/L (98-107) 103 mmol/L (98-107) Carbon Dioxide Level 33 mmol/L (21-32) 33 mmol/L (21-32) Anion Gap 7 (6-14) 5 (6-14) Blood Urea Nitrogen 48 mg/dL (7-20) 48 mg/dL (7-20) Creatinine 2.3 mg/dL (0.6-1.0) 2.4 mg/dL (0.6-1.0) Estimated GFR (Cockcroft-Gault) 20.0 19.0 Glucose Level 114 mg/dL (70-99) 89 mg/dL (70-99) Calcium Level 8.6 mg/dL (8.5-10.1) 8.4 mg/dL (8.5-10.1) Glucose (Fingerstick) 160 mg/dL (70-99) Assessment and Plan Assessmemt and Plan Problems Medical Problems: (1) CHF (congestive heart failure) Status: Acute (2) Chronic respiratory failure with hypoxia Status: Acute (3) CKD (chronic kidney disease) Status: Acute (4) Dyspnea Status: Acute (5) Hyperkalemia Status: Acute (6) Pneumonia Status: Acute Assessment Multifactorial respiratory failure with PNA and CHF DVT Colon cancer Hypoxia (on home oxygen) Plan IV antibiotics Cardio and nephro following Plus minus Lasix per nephrology and cardiology Cardiac monitoring Beta agonist Oxygen Home meds DVT prophylaxis Do Not Resuscitate Trend labs Encourage p.o. intake Probably need care home in a couple days Long-term prognosis guarded Comment Review of Relevant I have reviewed the following items yuly (where applicable) has been applied. Medications: Current Medications Medications (Trade) Dose Ordered Sig/Tor Route PRN Reason Start Time Stop Time Status Last Admin Dose Admin Albuterol Sulfate (Ventolin Neb Soln) 2.5 mg PRN Q4HRS PRN NEB SHORTNESS OF BREATH 07/26/21 12:30 07/26/21 22:00 Furosemide (Lasix) 40 mg 1X ONCE IVP 07/26/21 13:45 07/26/21 13:48 DC 07/26/21 16:45 Lactobacillus Rhamnosus (Culturelle) 1 cap BID PO 07/26/21 21:00 07/27/21 08:47 Justifications for Admission Other Justification JENNIE CHACON III DO Jul 27, 2021 10:48
[2021-07-27 11:00] VITALS: BP 138/66
--- NOTE | 2021-07-27 14:09 | PDOC ---
PROGRESS NOTES Date of Service DATE: 07/27/21 TIME: 14:07 Subjective Subjective SEEN IN FOLLOW UP OF CKD4 Objective Objective Vital Signs Date Time Temp Pulse Resp B/P (MAP) Pulse Ox O2 Delivery O2 Flow Rate FiO2 07/27/21 11:00 97.7 69 20 138/66 (90) 94 Nasal Cannula 97.7 07/27/21 08:00 6.0 Intake and Output 07/27/21 07:00 Intake Total 170 ml Output Total 200 ml Balance -30 ml Intake Oral 170 ml Output Urine Total 200 ml # Voids 2 Physical Exam Abdomen: Normal bowel sounds, Soft, No tenderness, No hepatosplenomegaly, No masses Heart: Regular rate, Normal S1, Normal S2, No murmurs, Gallops Extremities: No clubbing, No cyanosis, No edema, Normal pulses, No tenderness/swelling General: Alert Lungs: Other (BILATERAL RHONCHI) Psych/Mental Status: Mental status NL, Mood NL Diagnosis RENAL FAILURE: Chronic (CKD stage IV) Assessment Assessment Problems Medical Problems: (1) CHF (congestive heart failure) Status: Acute (2) Chronic respiratory failure with hypoxia Status: Acute (3) CKD (chronic kidney disease) Status: Acute (4) Dyspnea Status: Acute (5) Hyperkalemia Status: Acute (6) Pneumonia Status: Acute Plan Plan of Care SHE APPEARS TO HAVE CKD4. HER RENAL US IS UNREMARKABLE. CONT RX FOR PNEUMONIA Comment Review of Relevant I have reviewed the following items yuly (where applicable) has been applied. Labs Laboratory Tests Test 07/26/21 12:40 07/26/21 21:02 07/27/21 04:20 Sodium Level 142 mmol/L (136-145) 141 mmol/L (136-145) Potassium Level 5.6 mmol/L (3.5-5.1) 5.1 mmol/L (3.5-5.1) Chloride Level 102 mmol/L (98-107) 103 mmol/L (98-107) Carbon Dioxide Level 33 mmol/L (21-32) 33 mmol/L (21-32) Anion Gap 7 (6-14) 5 (6-14) Blood Urea Nitrogen 48 mg/dL (7-20) 48 mg/dL (7-20) Creatinine 2.3 mg/dL (0.6-1.0) 2.4 mg/dL (0.6-1.0) Estimated GFR (Cockcroft-Gault) 20.0 19.0 Glucose Level 114 mg/dL (70-99) 89 mg/dL (70-99) Calcium Level 8.6 mg/dL (8.5-10.1) 8.4 mg/dL (8.5-10.1) Glucose (Fingerstick) 160 mg/dL (70-99) Laboratory Tests Test 07/26/21 21:02 07/27/21 04:20 Glucose (Fingerstick) 160 mg/dL (70-99) Sodium Level 141 mmol/L (136-145) Potassium Level 5.1 mmol/L (3.5-5.1) Chloride Level 103 mmol/L (98-107) Carbon Dioxide Level 33 mmol/L (21-32) Anion Gap 5 (6-14) Blood Urea Nitrogen 48 mg/dL (7-20) Creatinine 2.4 mg/dL (0.6-1.0) Estimated GFR (Cockcroft-Gault) 19.0 Glucose Level 89 mg/dL (70-99) Calcium Level 8.4 mg/dL (8.5-10.1) Medications Current Medications Ceftriaxone Sodium (Rocephin) 1 gm 1X ONCE IVP Last administered on 07/24/21at 19:54; Start 07/24/21 at 19:00; Stop 07/24/21 at 19:01; Status DC Azithromycin 500 mg/Sodium Chloride 250 ml @ 250 mls/hr 1X ONCE IV Last administered on 07/24/21at 19:48; Start 07/24/21 at 19:00; Stop 07/24/21 at 19:59; Status DC Furosemide (Lasix) 20 mg 1X ONCE IVP Last administered on 07/24/21at 19:53; Start 07/24/21 at 19:00; Stop 07/24/21 at 19:01; Status DC Apixaban (Eliquis) 2.5 mg BID PO Last administered on 07/27/21at 08:48; Start 07/24/21 at 21:00 Ondansetron HCl (Zofran) 4 mg 1X ONCE IVP Last administered on 07/24/21at 20:07; Start 07/24/21 at 20:15; Stop 07/24/21 at 20:16; Status DC Amlodipine Besylate (Norvasc) 10 mg DAILY PO Last administered on 07/27/21 08:47; Start 07/25/21 at 17:00 Aspirin (Ecotrin) 81 mg DAILYWBKFT PO Last administered on 07/27/21 08:47; Start 07/25/21 at 17:00 Citalopram Hydrobromide (CeleXA) 10 mg DAILY PO Last administered on 07/27/21 08:47; Start 07/25/21 at 17:00 Levothyroxine Sodium (Synthroid) 100 mcg DAILY07 PO Last administered on 07/27/21 08:48; Start 07/26/21 at 07:00 Metoprolol Tartrate (Lopressor) 25 mg BID PO Last administered on 07/27/21 08:47; Start 07/25/21 at 21:00 Pantoprazole Sodium (Protonix) 40 mg DAILYAC PO Last administered on 07/27/21 08:47; Start 07/26/21 at 07:30 Ascorbic Acid (Vitamin C) 500 mg DAILY PO Last administered on 07/27/21 08:48; Start 07/26/21 at 09:00 Multivitamins (Thera M Plus) 1 tab DAILY PO Last administered on 07/27/21 08:48; Start 07/26/21 at 09:00 Ceftriaxone Sodium (Rocephin) 1 gm Q24H IVP Last administered on 07/26/21 20:39; Start 07/25/21 at 20:00 Azithromycin (Zithromax) 250 mg DAILY PO Last administered on 07/27/21 08:47; Start 07/25/21 at 19:00; Stop 07/28/21 at 09:01 Docusate Sodium (Colace) 100 mg BID PO Last administered on 07/27/21 08:48; Start 07/25/21 at 21:00 Ondansetron HCl (Zofran) 4 mg PRN Q4HRS PRN IVP NAUSEA/VOMITING Last administered on 07/26/21 09:30; Start 07/25/21 at 20:30 Acetaminophen (Tylenol) 650 mg PRN Q6HRS PRN PO MILD PAIN / TEMP > 100.3'F Last administered on 07/26/21at 19:35; Start 07/26/21 at 01:45 Fentanyl Citrate (Fentanyl 2ml Vial) 25 mcg PRN Q3HRS PRN IVP SEVERE PAIN 7-10 Last administered on 07/26/21at 02:30; Start 07/26/21 at 02:30 Albuterol Sulfate (Ventolin Neb Soln) 2.5 mg PRN Q4HRS PRN NEB SHORTNESS OF BREATH Last administered on 07/26/21at 22:00; Start 07/26/21 at 12:30 Furosemide (Lasix) 40 mg 1X ONCE IVP Last administered on 07/26/21at 16:45; Start 07/26/21 at 13:45; Stop 07/26/21 at 13:48; Status DC Lactobacillus Rhamnosus (Culturelle) 1 cap BID PO Last administered on 07/27/21at 08:47; Start 07/26/21 at 21:00 Active Scripts Active Celexa (Citalopram Hydrobromide) 10 Mg Tablet 10 Mg PO DAILY 30 Days Aspirin Ec (Aspirin) 81 Mg Tablet. 81 Mg PO DAILYWBKFT 30 Days Amlodipine Besylate 10 Mg Tablet 10 Mg PO DAILY 30 Days Reported Docusate Sodium 100 Mg Capsule 1 Cap PO BID 15 Days Levothyroxine Sodium 100 Mcg Tablet 1 Tab PO DAILY Eliquis (Apixaban) 2.5 Mg Tablet 2.5 Mg PO BID Metoprolol Tartrate 25 Mg Tablet 1 Tab PO BID Pantoprazole Sodium (Pantoprazole Sodium) 40 Mg Tablet. 40 Mg PO DAILYAC Vitals/I & O Vital Sign - Last 24 Hours 07/26/21 07/26/21 07/26/21 07/26/21 15:00 19:00 20:30 20:39 Temp 98.3 98.1 98.3 98.1 Pulse 67 67 67 Resp 28 20 B/P (MAP) 134/60 (84) 125/58 (80) 125/58 Pulse Ox 93 93 O2 Delivery Nasal Cannula Nasal Cannula Nasal Cannula O2 Flow Rate 5.0 5.0 07/26/21 07/26/21 07/26/21 07/26/21 20:45 22:00 22:30 23:00 Temp 98.3 98.3 Pulse 62 75 Resp 20 20 B/P (MAP) 122/66 (84) Pulse Ox 88 95 96 O2 Delivery Non-Rebreather Nasal Cannula Nasal Cannula Nasal Cannula O2 Flow Rate 15.0 12.0 8.0 07/27/21 07/27/21 07/27/21 07/27/21 03:28 07:00 08:00 08:47 Temp 98.3 98.0 98.3 98.0 Pulse 75 78 78 Resp 20 20 B/P (MAP) 131/71 (91) 133/77 (95) 133/77 Pulse Ox 96 98 O2 Delivery Nasal Cannula Nasal Cannula Nasal Cannula O2 Flow Rate 6.0 07/27/21 07/27/21 08:47 11:00 Temp 97.7 97.7 Pulse 78 69 Resp 20 B/P (MAP) 133/77 138/66 (90) Pulse Ox 94 O2 Delivery Nasal Cannula Intake and Output 07/26/21 07/26/21 07/27/21 15:00 23:00 07:00 Intake Total 120 ml 50 ml Output Total 200 ml Balance 120 ml -150 ml Justifications for Admission Other Justification TARYN RODRIGUEZ MD Jul 27, 2021 14:09
--- NOTE | 2021-07-27 14:18 | PDOC ---
PROGRESS NOTES Date of Service: DATE: 07/27/21 TIME: 14:15 Subjective Subjective c/o dyspnea Objective Objective Vital Signs Date Time Temp Pulse Resp B/P (MAP) Pulse Ox O2 Delivery O2 Flow Rate FiO2 07/27/21 11:00 97.7 69 20 138/66 (90) 94 Nasal Cannula 97.7 07/27/21 08:00 6.0 Intake and Output 07/27/21 07:00 Intake Total 170 ml Output Total 200 ml Balance -30 ml Intake Oral 170 ml Output Urine Total 200 ml # Voids 2 Physical Exam Abdomen: Normal bowel sounds, Soft, No tenderness, No hepatosplenomegaly, No masses Heart: Regular rate, Normal S1, Normal S2, No murmurs, Gallops Extremities: No clubbing, No cyanosis, No edema, Normal pulses, No tenderness/swelling General: Alert HEENT: Atraumatic, Mucous membr. moist/pink Lungs: Other (BILATERAL RHONCHI) Neuro: Normal speech, Sensation intact Psych/Mental Status: Mental status NL, Mood NL Skin: No rashes Diagnosis RENAL FAILURE: Chronic (CKD stage IV) Assessment Assessment 1 Acute on chronic systolic CHF: Improved 2. ENMA with hyperkalemia: nephrology following 3. recent PE 4. Valvular heart disease; echo with mild to moderate and mild to moderate TR. Estimated PAP 70-75 mmHg. 5. Cardiomyopathy; LVEF 45% with global hypokinesis of the LV 6. Dementia 7. Hypertension, labile episodes 8. SSS, tachy-chang syndrome: S/P PPM biotronik 9. Severe pulmonary HTN 10. Persistent AFIB: rate controlled with intermittent pacing. Continue Eliquis for stroke prophylaxis. 11. PPM in situ: on 07/03/2021 left chest incision well approximated with steristrips. LUE sling in place Plan Plan of Care Problems Medical Problems: (1) CHF (congestive heart failure) Status: Acute (2) Chronic respiratory failure with hypoxia Status: Acute (3) CKD (chronic kidney disease) Status: Acute (4) Dyspnea Status: Acute (5) Hyperkalemia Status: Acute (6) Pneumonia Status: Acute Comment Review of Relevant I have reviewed the following items yuly (where applicable) has been applied. Labs Laboratory Tests Test 07/26/21 21:02 07/27/21 04:20 Glucose (Fingerstick) 160 mg/dL (70-99) Sodium Level 141 mmol/L (136-145) Potassium Level 5.1 mmol/L (3.5-5.1) Chloride Level 103 mmol/L (98-107) Carbon Dioxide Level 33 mmol/L (21-32) Anion Gap 5 (6-14) Blood Urea Nitrogen 48 mg/dL (7-20) Creatinine 2.4 mg/dL (0.6-1.0) Estimated GFR (Cockcroft-Gault) 19.0 Glucose Level 89 mg/dL (70-99) Calcium Level 8.4 mg/dL (8.5-10.1) Medications Current Medications Lactobacillus Rhamnosus (Culturelle) 1 cap BID PO Last administered on 07/27/21at 08:47; Start 07/26/21 at 21:00 Vitals/I & O Vital Sign - Last 24 Hours 07/26/21 07/26/21 07/26/21 07/26/21 15:00 19:00 20:30 20:39 Temp 98.3 98.1 98.3 98.1 Pulse 67 67 67 Resp 20 B/P (MAP) 134/60 (84) 125/58 (80) 125/58 Pulse Ox 93 93 O2 Delivery Nasal Cannula Nasal Cannula Nasal Cannula O2 Flow Rate 5.0 5.0 07/26/21 07/26/21 07/26/21 07/26/21 20:45 22:00 22:30 23:00 Temp 98.3 98.3 Pulse 62 75 Resp 20 20 B/P (MAP) 122/66 (84) Pulse Ox 88 95 96 O2 Delivery Non-Rebreather Nasal Cannula Nasal Cannula Nasal Cannula O2 Flow Rate 15.0 12.0 8.0 07/27/21 07/27/21 07/27/21 07/27/21 03:28 07:00 08:00 08:47 Temp 98.3 98.0 98.3 98.0 Pulse 75 78 78 Resp 20 20 B/P (MAP) 131/71 (91) 133/77 (95) 133/77 Pulse Ox 96 98 O2 Delivery Nasal Cannula Nasal Cannula Nasal Cannula O2 Flow Rate 6.0 07/27/21 07/27/21 08:47 11:00 Temp 97.7 97.7 Pulse 78 69 Resp 20 B/P (MAP) 133/77 138/66 (90) Pulse Ox 94 O2 Delivery Nasal Cannula Intake and Output 07/26/21 07/26/21 07/27/21 15:00 23:00 07:00 Intake Total 120 ml 50 ml Output Total 200 ml Balance 120 ml -150 ml FELIPE ARBOLEDA MD Jul 27, 2021 14:18
[2021-07-27 14:54] VITALS: BP 135/67
[2021-07-27 19:00] VITALS: BP 132/58
[2021-07-27] MEDS: fentaNYL PF VIAL 100 MCG/2 ML VIAL IVP PRN (19:35)
[2021-07-27] MEDS: cefTRIAXone IV Push 1 GM VIAL. IVP SCH (20:19)
[2021-07-27 23:00] VITALS: BP 131/58
[2021-07-28] MEDS: ONDANSETRON PF 4 MG/2 ML VIAL. IVP PRN ×3 (01:13→21:17)
[2021-07-28 03:53] VITALS: BP 146/70
[2021-07-28 04:49] LABS: CALCIUM 8.6 mg/dL (8.5-10.1); CREATININE 2.5 mg/dL (0.6-1.0); GFR 18.1; POTASSIUM 5.7 mmol/L (3.5-5.1)
[2021-07-28 07:00] VITALS: BP 145/62
[2021-07-28] MEDS: LEVOTHYROXINE 100 MCG TABLET PO SCH (07:41)
[2021-07-28] MEDS: ASPIRIN ENTERIC COATED 81 MG TABLET.DR. PO SCH (09:17)
[2021-07-28] MEDS: CITALOPRAM 10 MG TABLET. PO SCH (09:18)
[2021-07-28] MEDS: ASCORBIC ACID 500 MG TABLET PO SCH (09:18)
[2021-07-28] MEDS: MULTIVITAMIN with MINERAL TABLET. PO SCH (09:18)
[2021-07-28] MEDS: DOCUSATE SODIUM 100 MG CAPSULE. PO SCH ×3 (09:18→21:14)
[2021-07-28] MEDS: PANTOPRAZOLE 40 MG TABLET.DR. PO SCH (09:19)
[2021-07-28] MEDS: APIXABAN 2.5 MG TABLET. PO SCH ×3 (09:19→21:14)
[2021-07-28] MEDS: METOPROLOL TART IMMED RELEASE 25 MG TABLET. PO SCH ×3 (09:19→21:14)
[2021-07-28] MEDS: LACTOBACILLUS RHAMNOSUS GG 1 CAPSULE. PO SCH ×3 (09:19→21:13)
[2021-07-28] MEDS: AZITHROMYCIN 250 MG TABLET. PO SCH (09:19)
[2021-07-28 11:00] VITALS: BP 130/61
[2021-07-28] MEDS: ALBUTEROL SULFATE 2.5 MG/3 ML NEBU. NEB PRN (11:36)
[2021-07-28] MEDS ORDERED: FUROSEMIDE 40 MG/4 ML VIAL. IVP ONE (12:00)
--- NOTE | 2021-07-28 12:19 | PDOC ---
PROGRESS NOTES Date of Service DATE: 07/28/21 TIME: 12:14 Subjective Subjective seen in follow of ckd4. she is sob and has foamy sputum Objective Objective Vital Signs Date Time Temp Pulse Resp B/P (MAP) Pulse Ox O2 Delivery O2 Flow Rate FiO2 07/28/21 11:37 93 Nasal Cannula 12.0 07/28/21 09:19 62 145/62 07/28/21 07:00 97.9 18 97.9 Intake and Output 07/28/21 07:00 Intake Total 400 ml Output Total 100 ml Balance 300 ml Intake Oral 400 ml Output Urine Total 100 ml # Voids 2 Physical Exam Abdomen: Normal bowel sounds, Soft, No tenderness, No hepatosplenomegaly, No masses Heart: Regular rate, Normal S1, Normal S2, No murmurs, Gallops Extremities: No clubbing, No cyanosis, No edema, Normal pulses, No tenderness/swelling General: Alert, Oriented X3, Cooperative, No acute distress Lungs: Other (bilat rhonchi) Psych/Mental Status: Mental status NL, Mood NL Assessment Assessment Problems Medical Problems: (1) CHF (congestive heart failure) Status: Acute (2) Chronic respiratory failure with hypoxia Status: Acute (3) CKD (chronic kidney disease) Status: Acute (4) Dyspnea Status: Acute (5) Hyperkalemia Status: Acute (6) Pneumonia Status: Acute Plan Plan of Care renal function is still poor and she is in pulmonary edema. will give iv lasix. this will also assist with hyperk+ Comment Review of Relevant I have reviewed the following items yuly (where applicable) has been applied. Labs Laboratory Tests Test 07/26/21 12:40 07/26/21 21:02 07/27/21 04:20 07/28/21 04:00 Sodium Level 142 mmol/L (136-145) 141 mmol/L (136-145) 137 mmol/L (136-145) Potassium Level 5.6 mmol/L (3.5-5.1) 5.1 mmol/L (3.5-5.1) 5.7 mmol/L (3.5-5.1) Chloride Level 102 mmol/L (98-107) 103 mmol/L (98-107) 99 mmol/L (98-107) Carbon Dioxide Level 33 mmol/L (21-32) 33 mmol/L (21-32) 31 mmol/L (21-32) Anion Gap 7 (6-14) 5 (6-14) 7 (6-14) Blood Urea Nitrogen 48 mg/dL (7-20) 48 mg/dL (7-20) 48 mg/dL (7-20) Creatinine 2.3 mg/dL (0.6-1.0) 2.4 mg/dL (0.6-1.0) 2.5 mg/dL (0.6-1.0) Estimated GFR (Cockcroft-Gault) 20.0 19.0 18.1 Glucose Level 114 mg/dL (70-99) 89 mg/dL (70-99) 115 mg/dL (70-99) Calcium Level 8.6 mg/dL (8.5-10.1) 8.4 mg/dL (8.5-10.1) 8.6 mg/dL (8.5-10.1) Glucose (Fingerstick) 160 mg/dL (70-99) Laboratory Tests Test 07/28/21 04:00 Sodium Level 137 mmol/L (136-145) Potassium Level 5.7 mmol/L (3.5-5.1) Chloride Level 99 mmol/L (98-107) Carbon Dioxide Level 31 mmol/L (21-32) Anion Gap 7 (6-14) Blood Urea Nitrogen 48 mg/dL (7-20) Creatinine 2.5 mg/dL (0.6-1.0) Estimated GFR (Cockcroft-Gault) 18.1 Glucose Level 115 mg/dL (70-99) Calcium Level 8.6 mg/dL (8.5-10.1) Medications Current Medications Ceftriaxone Sodium (Rocephin) 1 gm 1X ONCE IVP Last administered on 07/24/21at 19:54; Start 07/24/21 at 19:00; Stop 07/24/21 at 19:01; Status DC Azithromycin 500 mg/Sodium Chloride 250 ml @ 250 mls/hr 1X ONCE IV Last administered on 07/24/21at 19:48; Start 07/24/21 at 19:00; Stop 07/24/21 at 19:59; Status DC Furosemide (Lasix) 20 mg 1X ONCE IVP Last administered on 07/24/21at 19:53; Start 07/24/21 at 19:00; Stop 07/24/21 at 19:01; Status DC Apixaban (Eliquis) 2.5 mg BID PO Last administered on 07/28/21at 09:19; Start 07/24/21 at 21:00 Ondansetron HCl (Zofran) 4 mg 1X ONCE IVP Last administered on 07/24/21at 20:07; Start 07/24/21 at 20:15; Stop 07/24/21 at 20:16; Status DC Amlodipine Besylate (Norvasc) 10 mg DAILY PO Last administered on 07/28/21at 09:19; Start 07/25/21 at 17:00 Aspirin (Ecotrin) 81 mg DAILYWBKFT PO Last administered on 07/28/21at 09:17; Start 07/25/21 at 17:00 Citalopram Hydrobromide (CeleXA) 10 mg DAILY PO Last administered on 07/28/21at 09:18; Start 07/25/21 at 17:00 Levothyroxine Sodium (Synthroid) 100 mcg DAILY07 PO Last administered on 07/28/21at 07:41; Start 07/26/21 at 07:00 Metoprolol Tartrate (Lopressor) 25 mg BID PO Last administered on 07/28/21at 09:19; Start 07/25/21 at 21:00 Pantoprazole Sodium (Protonix) 40 mg DAILYAC PO Last administered on 07/28/21at 09:19; Start 07/26/21 at 07:30 Ascorbic Acid (Vitamin C) 500 mg DAILY PO Last administered on 07/28/21at 09:18; Start 07/26/21 at 09:00 Multivitamins (Thera M Plus) 1 tab DAILY PO Last administered on 07/28/21at 09:18; Start 07/26/21 at 09:00 Ceftriaxone Sodium (Rocephin) 1 gm Q24H IVP Last administered on 07/27/21at 20:19; Start 07/25/21 at 20:00 Azithromycin (Zithromax) 250 mg DAILY PO Last administered on 07/28/21at 09:19; Start 07/25/21 at 19:00; Stop 07/28/21 at 09:01; Status DC Docusate Sodium (Colace) 100 mg BID PO Last administered on 07/28/21at 09:18; Start 07/25/21 at 21:00 Ondansetron HCl (Zofran) 4 mg PRN Q4HRS PRN IVP NAUSEA/VOMITING Last administered on 07/28/21at 01:13; Start 07/25/21 at 20:30 Acetaminophen (Tylenol) 650 mg PRN Q6HRS PRN PO MILD PAIN / TEMP > 100.3'F Last administered on 07/26/21at 19:35; Start 07/26/21 at 01:45 Fentanyl Citrate (Fentanyl 2ml Vial) 25 mcg PRN Q3HRS PRN IVP SEVERE PAIN 7-10 Last administered on 07/27/21at 19:35; Start 07/26/21 at 02:30 Albuterol Sulfate (Ventolin Neb Soln) 2.5 mg PRN Q4HRS PRN NEB SHORTNESS OF BREATH Last administered on 07/28/21at 11:36; Start 07/26/21 at 12:30 Furosemide (Lasix) 40 mg 1X ONCE IVP Last administered on 07/26/21at 16:45; Start 07/26/21 at 13:45; Stop 07/26/21 at 13:48; Status DC Lactobacillus Rhamnosus (Culturelle) 1 cap BID PO Last administered on 07/28/21at 09:19; Start 07/26/21 at 21:00 Furosemide (Lasix) 40 mg 1X ONCE IVP ; Start 07/28/21 at 12:00; Stop 07/28/21 at 12:01; Status DC Methylprednisolone Sodium Succinate (SOLU-Medrol 40MG VIAL) 40 mg Q12HR IV ; Start 07/28/21 at 12:30 Active Scripts Active Celexa (Citalopram Hydrobromide) 10 Mg Tablet 10 Mg PO DAILY 30 Days Aspirin Ec (Aspirin) 81 Mg Tablet. 81 Mg PO DAILYWBKFT 30 Days Amlodipine Besylate 10 Mg Tablet 10 Mg PO DAILY 30 Days Reported Docusate Sodium 100 Mg Capsule 1 Cap PO BID 15 Days Levothyroxine Sodium 100 Mcg Tablet 1 Tab PO DAILY Eliquis (Apixaban) 2.5 Mg Tablet 2.5 Mg PO BID Metoprolol Tartrate 25 Mg Tablet 1 Tab PO BID Pantoprazole Sodium (Pantoprazole Sodium) 40 Mg Tablet. 40 Mg PO DAILYAC Vitals/I & O Vital Sign - Last 24 Hours 07/27/21 07/27/21 07/27/21 07/27/21 14:54 19:00 19:30 20:20 Temp 97.7 97.8 97.7 97.8 Pulse 72 65 72 Resp 20 18 B/P (MAP) 135/67 (89) 132/58 (82) 132/58 Pulse Ox 92 92 O2 Delivery Nasal Cannula Nasal Cannula O2 Flow Rate 6.0 07/27/21 07/28/21 07/28/21 07/28/21 23:00 03:53 07:00 09:19 Temp 97.0 98.2 97.9 97.0 98.2 97.9 Pulse 60 79 62 62 Resp 18 21 18 B/P (MAP) 131/58 (82) 146/70 (95) 145/62 (89) 145/62 Pulse Ox 96 100 97 O2 Delivery Nasal Cannula Nasal Cannula O2 Flow Rate 10.0 8.0 07/28/21 07/28/21 09:19 11:37 Pulse 62 B/P (MAP) 145/62 Pulse Ox 93 O2 Delivery Nasal Cannula O2 Flow Rate 12.0 Intake and Output 07/27/21 07/27/21 07/28/21 15:00 23:00 07:00 Intake Total 200 ml 100 ml 100 ml Output Total 100 ml Balance 200 ml 100 ml 0 ml Justifications for Admission Other Justification TARYN RODRIGUEZ MD Jul 28, 2021 12:19
--- NOTE | 2021-07-28 12:22 | PDOC ---
PROGRESS NOTES Date of Service: DATE: 07/28/21 TIME: 12:20 Subjective Subjective c/o dyspnea Objective Objective Vital Signs Date Time Temp Pulse Resp B/P (MAP) Pulse Ox O2 Delivery O2 Flow Rate FiO2 07/28/21 11:37 93 Nasal Cannula 12.0 07/28/21 09:19 62 145/62 07/28/21 07:00 97.9 18 97.9 Intake and Output 07/28/21 07:00 Intake Total 400 ml Output Total 100 ml Balance 300 ml Intake Oral 400 ml Output Urine Total 100 ml # Voids 2 Physical Exam Abdomen: Normal bowel sounds, Soft, No tenderness, No hepatosplenomegaly, No m asses Heart: Normal S1, Normal S2, Other (ESM aortic) Extremities: No clubbing, No cyanosis, No edema, Normal pulses, No tenderness/swelling General: Alert, No acute distress HEENT: Atraumatic, Mucous membr. moist/pink Lungs: Other (bilat rhonchi) Neuro: Normal speech Psych/Mental Status: Mental status NL, Mood NL Skin: No rashes Diagnosis RENAL FAILURE: Chronic (CKD stage IV) Assessment Assessment 1 Acute on chronic systolic CHF: Improved 2. ENMA with hyperkalemia: nephrology following 3. recent PE 4. Valvular heart disease; echo with mild to moderate and mild to moderate TR. Estimated PAP 70-75 mmHg. 5. Cardiomyopathy; LVEF 45% with global hypokinesis of the LV 6. Dementia 7. Hypertension, labile episodes 8. SSS, tachy-chang syndrome: S/P PPM biotronik 9. Severe pulmonary HTN 10. Persistent AFIB: rate controlled with intermittent pacing. Continue Eliquis for stroke prophylaxis. 11. PPM in situ: on 07/03/2021 left chest incision looks good Plan Plan of Care Problems Medical Problems: (1) CHF (congestive heart failure) Status: Acute (2) Chronic respiratory failure with hypoxia Status: Acute (3) CKD (chronic kidney disease) Status: Acute (4) Dyspnea Status: Acute (5) Hyperkalemia Status: Acute (6) Pneumonia Status: Acute Comment Review of Relevant I have reviewed the following items yuly (where applicable) has been applied. Labs Laboratory Tests Test 07/28/21 04:00 Sodium Level 137 mmol/L (136-145) Potassium Level 5.7 mmol/L (3.5-5.1) Chloride Level 99 mmol/L (98-107) Carbon Dioxide Level 31 mmol/L (21-32) Anion Gap 7 (6-14) Blood Urea Nitrogen 48 mg/dL (7-20) Creatinine 2.5 mg/dL (0.6-1.0) Estimated GFR (Cockcroft-Gault) 18.1 Glucose Level 115 mg/dL (70-99) Calcium Level 8.6 mg/dL (8.5-10.1) Medications Current Medications Furosemide (Lasix) 40 mg 1X ONCE IVP ; Start 07/28/21 at 12:00; Stop 07/28/21 at 12:01; Status DC Methylprednisolone Sodium Succinate (SOLU-Medrol 40MG VIAL) 40 mg Q12HR IV ; Start 07/28/21 at 12:30 Vitals/I & O Vital Sign - Last 24 Hours 07/27/21 07/27/21 07/27/21 07/27/21 14:54 19:00 19:30 20:20 Temp 97.7 97.8 97.7 97.8 Pulse 72 65 72 Resp 20 18 B/P (MAP) 135/67 (89) 132/58 (82) 132/58 Pulse Ox 92 92 O2 Delivery Nasal Cannula Nasal Cannula O2 Flow Rate 6.0 07/27/21 07/28/21 07/28/21 07/28/21 23:00 03:53 07:00 09:19 Temp 97.0 98.2 97.9 97.0 98.2 97.9 Pulse 60 79 62 62 Resp 18 18 B/P (MAP) 131/58 (82) 146/70 (95) 145/62 (89) 145/62 Pulse Ox 96 100 97 O2 Delivery Nasal Cannula Nasal Cannula O2 Flow Rate 10.0 8.0 07/28/21 07/28/21 09:19 11:37 Pulse 62 B/P (MAP) 145/62 Pulse Ox 93 O2 Delivery Nasal Cannula O2 Flow Rate 12.0 Intake and Output 07/27/21 07/27/21 07/28/21 15:00 23:00 07:00 Intake Total 200 ml 100 ml 100 ml Output Total 100 ml Balance 200 ml 100 ml 0 ml FELIPE ARBOLEDA MD Jul 28, 2021 12:22
--- NOTE | 2021-07-28 12:23 | PDOC ---
[employer] PROGRESS NOTE Date of Service DOS: DATE: 07/28/21 TIME: 12:22 Chief Complaint Chief Complaint Multifactorial respiratory failure with pneumonia and CHF Appendectomy Cholecystectomy Hip replacement Pacemaker Tonsillectomy Left arm clot removed Colon resection Previous tobacco abuse with probable COPD Chronic anticoagulation GERD Hypothyroidism History of Present Illness History of Present Illness 07/28/2021 Patient seen and examined Has 2 family members present one is her son the other is his they seem to be good support for her Discussed with RN Chart reviewed 07/27/2021 Patient seen and examined at bedside this morning Patient states she "still is not breathing well" Discussed with RN RN states patient had a rapid response yesterday Chart reviewed 07/26/2021 Patient seen and examined Discussed with RN Chart reviewed Vitals/I&O Vitals/I&O: Vital Signs Date Time Temp Pulse Resp B/P (MAP) Pulse Ox O2 Delivery O2 Flow Rate FiO2 07/28/21 11:37 93 Nasal Cannula 12.0 07/28/21 09:19 62 145/62 07/28/21 07:00 97.9 18 97.9 I & O 07/27/21 07/27/21 07/28/21 15:00 23:00 07:00 Intake Total 200 ml 100 ml 100 ml Output Total 100 ml Balance 200 ml 100 ml 0 ml Physical Exam General: Alert, Oriented X3, Cooperative, No acute distress Heart: Regular rate, Normal S1, Normal S2, No murmurs, Gallops Lungs: Other (Slight wheeze and crackles but better than yesterday a little pursed lipped breathing) Abdomen: Normal bowel sounds, Soft, No tenderness, No hepatosplenomegaly, No masses Extremities: No clubbing, No cyanosis, No edema, Normal pulses, No tenderness/swelling Skin: No rashes Labs Labs: Laboratory Tests Test 07/28/21 04:00 Sodium Level 137 mmol/L (136-145) Potassium Level 5.7 mmol/L (3.5-5.1) Chloride Level 99 mmol/L (98-107) Carbon Dioxide Level 31 mmol/L (21-32) Anion Gap 7 (6-14) Blood Urea Nitrogen 48 mg/dL (7-20) Creatinine 2.5 mg/dL (0.6-1.0) Estimated GFR (Cockcroft-Gault) 18.1 Glucose Level 115 mg/dL (70-99) Calcium Level 8.6 mg/dL (8.5-10.1) Assessment and Plan Assessmemt and Plan Problems Medical Problems: (1) CHF (congestive heart failure) Status: Acute (2) Chronic respiratory failure with hypoxia Status: Acute (3) CKD (chronic kidney disease) Status: Acute (4) Dyspnea Status: Acute (5) Hyperkalemia Status: Acute (6) Pneumonia Status: Acute Multifactorial respiratory failure with pneumonia and CHF Appendectomy Cholecystectomy Hip replacement Pacemaker Tonsillectomy Left arm clot removed Colon resection Previous tobacco abuse with probable COPD Chronic anticoagulation GERD Hypothyroidism Plan IV antibiotics IV steroids added in Cardio and nephro following Plus minus Lasix per nephrology and cardiology Cardiac monitoring Beta agonist Oxygen Home meds DVT prophylaxis Do Not Resuscitate Trend labs Encourage p.o. intake Probably need half-way in a couple days Long-term prognosis guarded Comment Review of Relevant I have reviewed the following items yuly (where applicable) has been applied. Justifications for Admission Other Justification JENNIE CHACON III, DO Jul 28, 2021 12:23
[2021-07-28] MEDS: methylPREDNISolone SOD SUCC PF 40 MG/ML VIAL. IV SCH ×2 (12:24→21:00)
--- NOTE | 2021-07-28 14:30 | RAD ---
EXAM: Chest, single view. HISTORY: Shortness of air. COMPARISON: 07/26/2021 FINDINGS: A frontal view of the chest is obtained. There are stable small right and moderate left ple ural effusions. There is stable diffuse lower lobe predominant infiltrate with suspected partial bila teral lower lobe consolidation. There is a stable prominent cardiac silhouette and cardiac pacemaker. There is no pneumothorax. There is a chronic healed fracture deformity of the proximal left humerus IMPRESSION: 1. Stable small right and moderate left pleural effusions. 2. Stable diffuse infiltrate with suspected partial bilateral lower lobe consolidation. 3. Stable enlarged cardiac silhouette. Electronically signed by: Alyssa Kulkarni MD (07/28/2021 2:28 PM) [facility]
[2021-07-28 15:00] VITALS: BP 138/69
[2021-07-28 19:00] VITALS: BP 121/61
[2021-07-28] MEDS: cefTRIAXone IV Push 1 GM VIAL. IVP SCH (21:00)
[2021-07-28 23:00] VITALS: BP 136/67
[2021-07-29 02:52] VITALS: BP 144/73
[2021-07-29 07:00] VITALS: BP 146/70
[2021-07-29] MEDS: LEVOTHYROXINE 100 MCG TABLET PO SCH (07:34)
[2021-07-29] MEDS: PANTOPRAZOLE 40 MG TABLET.DR. PO SCH (07:35)
[2021-07-29] MEDS: ASPIRIN ENTERIC COATED 81 MG TABLET.DR. PO SCH (07:35)
[2021-07-29 07:47] LABS: CALCIUM 8.5 mg/dL (8.5-10.1); CREATININE 2.4 mg/dL (0.6-1.0); MAGNESIUM 2.4 mg/dL (1.8-2.4); TOTAL BILIRUBIN 0.3 mg/dL (0.2-1.0)
[2021-07-29] MEDS: APIXABAN 2.5 MG TABLET. PO SCH ×2 (09:20→20:03)
[2021-07-29] MEDS: ASCORBIC ACID 500 MG TABLET PO SCH (09:20)
[2021-07-29] MEDS: METOPROLOL TART IMMED RELEASE 25 MG TABLET. PO SCH ×2 (09:20→20:03)
[2021-07-29] MEDS: CITALOPRAM 10 MG TABLET. PO SCH (09:20)
[2021-07-29] MEDS: LACTOBACILLUS RHAMNOSUS GG 1 CAPSULE. PO SCH ×2 (09:20→20:03)
[2021-07-29] MEDS: MULTIVITAMIN with MINERAL TABLET. PO SCH (09:20)
[2021-07-29] MEDS: DOCUSATE SODIUM 100 MG CAPSULE. PO SCH ×2 (09:20→21:00)
[2021-07-29] MEDS: methylPREDNISolone SOD SUCC PF 40 MG/ML VIAL. IV SCH ×2 (09:21→20:03)
--- NOTE | 2021-07-29 09:23 | PDOC ---
DATE OF SERVICE DATE: 07/29/21 TIME: 09:11 SUBJECTIVE ROS Resting comfortably , NAD No concerns voiced by nursing OBJECTIVE Vital Signs Vital Signs Date Time Temp Pulse Resp B/P (MAP) Pulse Ox O2 Delivery O2 Flow Rate FiO2 07/29/21 07:24 Nasal Cannula 8.0 07/29/21 07:00 98.5 75 20 146/70 (95) 95 98.5 I & 0 Intake and Output 07/29/21 07:00 Intake Total 200 ml Balance 200 ml Intake Oral 200 ml # Voids 1 PHYSICAL EXAM Physical Exam General: No acute distress HEENT: Mucous membr. moist/pink Neck Supple Abd soft, NT Lungs CTA, non labored CV S1S2 Skin: No breakdown, No significant lesion Neuro: Grossly normal. Has Dx of Dementia Psych/Mental Status: Mental status NL, Mood NL Extremities: No cyanosis, Other (1-2+ bilateral LE pitting edema) DIAGNOSIS/ASSESSMENT Assessment & Plan ENMA vs CKD - Cardiorenal Baseline Creat in Jun 2021 2.1 ; Renal function sta ble at presentation. No labs since 07/24 Baseline renal function unavailable . Renal US unremarkable Maintain fluid balance. Strict I/O ( not recorded ) , daily weight , supportive care, avoid Nephrotoxins HyperKalemia - K elevated. Kayexalate x1 . Lasix IV PRN Acute Resp Failure - 2/2 CHF - Increase in O2 (Home 02 2 lts ) , Cardiology managing Abnormal CxR - repeat - similar to initial per radiology . Cardiology managing . Atrial fibrillation - per cardiology SSS, tachy-chang syndrome with significant pause. S/p single-chamber permanent pacemaker implantation recently Valvular heart disease; echo with mild to moderate and mild to moderate TR. Estimated PAP 70-75 mmHg. Cardiomyopathy; LVEF 45% with global hypokinesis of the LV Dementia Hypertension, labile- stable currently COMMENT/RELEVANT DATA Meds Current Medications Medications (Trade) Dose Ordered Sig/Tor Start Time Stop Time Status Last Admin Dose Admin Acetaminophen (Tylenol) 650 mg PRN Q6HRS PRN 07/26/21 01:45 07/26/21 19:35 650 MG Albuterol Sulfate (Ventolin Neb Soln) 2.5 mg PRN Q4HRS PRN 07/26/21 12:30 07/28/21 11:36 2.5 MG Amlodipine Besylate (Norvasc) 10 mg DAILY 07/25/21 17:00 07/28/21 09:19 10 MG Apixaban (Eliquis) 2.5 mg BID 07/24/21 21:00 07/28/21 09:19 2.5 MG Ascorbic Acid (Vitamin C) 500 mg DAILY 07/26/21 09:00 07/28/21 09:18 500 MG Aspirin (Ecotrin) 81 mg DAILYWBKFT 07/25/21 17:00 07/29/21 07:35 81 MG Azithromycin (Zithromax) 250 mg DAILY 07/25/21 19:00 07/28/21 09:01 DC 07/28/21 09:19 250 MG Azithromycin 500 mg/Sodium Chloride 250 ml @ 250 mls/hr 1X ONCE 07/24/21 19:00 07/24/21 19:59 DC 07/24/21 19:48 250 MLS/HR Ceftriaxone Sodium (Rocephin) 1 gm Q24H 07/25/21 20:00 07/28/21 21:00 1 GM Citalopram Hydrobromide (CeleXA) 10 mg DAILY 07/25/21 17:00 07/28/21 09:18 10 MG Docusate Sodium (Colace) 100 mg BID 07/25/21 21:00 07/28/21 09:18 100 MG Fentanyl Citrate (Fentanyl 2ml Vial) 25 mcg PRN Q3HRS PRN 07/26/21 02:30 07/27/21 19:35 25 MCG Furosemide (Lasix) 40 mg 1X ONCE 07/28/21 12:00 07/28/21 12:01 DC 07/28/21 12:23 40 MG Lactobacillus Rhamnosus (Culturelle) 1 cap BID 07/26/21 21:00 07/28/21 09:19 1 CAP Levothyroxine Sodium (Synthroid) 100 mcg DAILY07 07/26/21 07:00 07/29/21 07:34 100 MCG Methylprednisolone Sodium Succinate (SOLU-Medrol 40MG VIAL) 40 mg Q12HR 07/28/21 12:30 07/28/21 21:00 40 MG Metoprolol Tartrate (Lopressor) 25 mg BID 07/25/21 21:00 07/28/21 09:19 25 MG Multivitamins (Thera M Plus) 1 tab DAILY 07/26/21 09:00 07/28/21 09:18 1 TAB Ondansetron HCl (Zofran) 4 mg PRN Q4HRS PRN 07/25/21 20:30 07/28/21 21:17 4 MG Pantoprazole Sodium (Protonix) 40 mg DAILYAC 07/26/21 07:30 07/29/21 07:35 40 MG Lab Laboratory Tests Test 07/29/21 05:50 Sodium Level 139 mmol/L (136-145) Potassium Level 6.0 mmol/L (3.5-5.1) Chloride Level 99 mmol/L (98-107) Carbon Dioxide Level 31 mmol/L (21-32) Anion Gap 9 (6-14) Blood Urea Nitrogen 49 mg/dL (7-20) Creatinine 2.4 mg/dL (0.6-1.0) Estimated GFR (Cockcroft-Gault) 19.0 BUN/Creatinine Ratio 20 (6-20) Glucose Level 148 mg/dL (70-99) Calcium Level 8.5 mg/dL (8.5-10.1) Magnesium Level 2.4 mg/dL (1.8-2.4) Total Bilirubin 0.3 mg/dL (0.2-1.0) Aspartate Amino Transf (AST/SGOT) 14 U/L (15-37) Alanine Aminotransferase (ALT/SGPT) 24 U/L (14-59) Alkaline Phosphatase 41 U/L (46-116) Total Protein 6.0 g/dL (6.4-8.2) Albumin 3.0 g/dL (3.4-5.0) Albumin/Globulin Ratio 1.0 (1.0-1.7) Results All relevant outside records, renal labs, imaging studies, telemetry/EKG's were reviewed. Justicifation of Admission Dx: Justifications for Admission: Justification of Admission Dx: Yes RITA KIRAN MD Jul 29, 2021 09:23
[2021-07-29] MEDS ORDERED: SODIUM POLYSTYRENE SULFON/SORB 15 GM/60 ML ORAL.SUSP. PO ONE (10:00)
--- NOTE | 2021-07-29 10:55 | PDOC ---
[employer] PROGRESS NOTE Date of Service DOS: DATE: 07/29/21 TIME: 10:54 Chief Complaint Chief Complaint Multifactorial respiratory failure with pneumonia and CHF Appendectomy Cholecystectomy Hip replacement Pacemaker Tonsillectomy Left arm clot removed Colon resection Previous tobacco abuse with probable COPD Chronic anticoagulation GERD Hypothyroidism History of Present Illness History of Present Illness 07/29/2021 Patient seen and examined Discussed with RN Chart reviewed Patient is resting with no apparent distress Has O2 per nasal cannula at 8 L Potassium is up to 6 today 07/28/2021 Patient seen and examined Has 2 family members present one is her son the other is his they seem to be good support for her Discussed with RN Chart reviewed 07/27/2021 Patient seen and examined at bedside this morning Patient states she "still is not breathing well" Discussed with RN RN states patient had a rapid response yesterday Chart reviewed 07/26/2021 Patient seen and examined Discussed with RN Chart reviewed Vitals/I&O Vitals/I&O: Vital Signs Date Time Temp Pulse Resp B/P (MAP) Pulse Ox O2 Delivery O2 Flow Rate FiO2 07/29/21 09:20 75 146/70 07/29/21 07:24 Nasal Cannula 8.0 07/29/21 07:00 98.5 20 95 98.5 l I & O 07/28/21 07/28/21 07/29/21 15:00 23:00 07:00 Intake Total 200 ml Balance 200 ml Physical Exam General: No acute distress Heart: Normal S1, Normal S2, Other (ESM aortic) Lungs: Other (Slight wheeze and crackles but better than yesterday a little pursed lipped breathing) Abdomen: Normal bowel sounds, Soft, No tenderness, No hepatosplenomegaly, No masses Extremities: No clubbing, No cyanosis, No edema, Normal pulses, No tenderness/swelling Skin: No rashes Labs Labs: Laboratory Tests Test 07/29/21 05:50 Sodium Level 139 mmol/L (136-145) Potassium Level 6.0 mmol/L (3.5-5.1) Chloride Level 99 mmol/L (98-107) Carbon Dioxide Level 31 mmol/L (21-32) Anion Gap 9 (6-14) Blood Urea Nitrogen 49 mg/dL (7-20) Creatinine 2.4 mg/dL (0.6-1.0) Estimated GFR (Cockcroft-Gault) 19.0 BUN/Creatinine Ratio 20 (6-20) Glucose Level 148 mg/dL (70-99) Calcium Level 8.5 mg/dL (8.5-10.1) Magnesium Level 2.4 mg/dL (1.8-2.4) Total Bilirubin 0.3 mg/dL (0.2-1.0) Aspartate Amino Transf (AST/SGOT) 14 U/L (15-37) Alanine Aminotransferase (ALT/SGPT) 24 U/L (14-59) Alkaline Phosphatase 41 U/L (46-116) Total Protein 6.0 g/dL (6.4-8.2) Albumin 3.0 g/dL (3.4-5.0) Albumin/Globulin Ratio 1.0 (1.0-1.7) Assessment and Plan Assessmemt and Plan Problems Medical Problems: (1) CHF (congestive heart failure) Status: Acute (2) Chronic respiratory failure with hypoxia Status: Acute (3) CKD (chronic kidney disease) Status: Acute (4) Dyspnea Status: Acute (5) Hyperkalemia Status: Acute (6) Pneumonia Status: Acute Multifactorial respiratory failure with pneumonia and CHF Hyperkalemia Appendectomy Cholecystectomy Hip replacement Pacemaker Tonsillectomy Left arm clot removed Colon resection Previous tobacco abuse with probable COPD Chronic anticoagulation GERD Hypothyroidism Plan IV antibiotics IV steroids added in Cardio and nephro following Plus minus Lasix per nephrology and cardiology Cardiac monitoring Beta agonist Oxygen Home meds DVT prophylaxis Do Not Resuscitate Trend labs Encourage p.o. intake Probably need nursing home in a couple days Long-term prognosis guarded Comment Review of Relevant I have reviewed the following items yuly (where applicable) has been applied. Medications: Current Medications Medications (Trade) Dose Ordered Sig/Tor Route PRN Reason Start Time Stop Time Status Last Admin Dose Admin Furosemide (Lasix) 40 mg 1X ONCE IVP 07/28/21 12:00 07/28/21 12:01 DC 07/28/21 12:23 Methylprednisolone Sodium Succinate (SOLU-Medrol 40MG VIAL) 40 mg Q12HR IV 07/28/21 12:30 07/29/21 09:21 Sodium Polystyrene Sulfonate (Kayexalate) 15 gm 1X ONCE PO 07/29/21 10:00 07/29/21 10:01 DC 07/29/21 10:36 Justifications for Admission Other Justification CASTLE,NIAL K III DO Jul 29, 2021 10:55
[2021-07-29 11:00] VITALS: BP 135/67
[2021-07-29] MEDS ORDERED: ANTI-COAG MONITOR BY PHARMACY. MC PRN (11:15)
[2021-07-29 15:00] VITALS: BP 136/71
[2021-07-29 19:00] VITALS: BP 138/63
[2021-07-29] MEDS: cefTRIAXone IV Push 1 GM VIAL. IVP SCH (20:02)
--- NOTE | 2021-07-29 20:03 | EKG ---
[facility] [address] [place] [address] Test Date: 2021-07-26 Test Time: 21:04:59 Pat Name: GEOVANNA GATES Department: Room: 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
[2021-07-29] MEDS: ONDANSETRON PF 4 MG/2 ML VIAL. IVP PRN (21:41)
--- NOTE | 2021-07-29 21:43 | PDOC ---
PROGRESS NOTES Date of Service: DATE: 07/29/21 TIME: 21:43 Subjective Subjective No new complaints, 8 L of O2 per nasal cannula Objective Objective Vital Signs Date Time Temp Pulse Resp B/P (MAP) Pulse Ox O2 Delivery O2 Flow Rate FiO2 07/29/21 20:03 69 138/63 07/29/21 19:00 99.0 20 95 Nasal Cannula 99.0 07/29/21 18:58 8.0 Intake and Output 07/29/21 07:00 Intake Total 200 ml Balance 200 ml Intake Oral 200 ml # Voids 1 Physical Exam Abdomen: Normal bowel sounds, Soft, No tenderness, No hepatosplenomegaly, No masses Heart: Normal S1, Normal S2, Other (ESM aortic) Extremities: No clubbing, No cyanosis, No edema, Normal pulses, No tenderness/swelling General: No acute distress HEENT: Atraumatic, Mucous membr. moist/pink Lungs: Other (bilat rhonchi) Neuro: Normal speech Psych/Mental Status: Mental status NL, Mood NL Skin: No rashes Diagnosis RENAL FAILURE: Chronic (CKD stage IV) Assessment Assessment 1 Acute on chronic systolic CHF: Improved 2. ENMA with hyperkalemia: nephrology following 3. recent PE 4. Valvular heart disease; echo with mild to moderate and mild to moderate TR. Estimated PAP 70-75 mmHg. 5. Cardiomyopathy; LVEF 45% with global hypokinesis of the LV 6. Dementia 7. Hypertension, labile episodes 8. SSS, tachy-chang syndrome: S/P PPM biotronik 9. Severe pulmonary HTN 10. Persistent AFIB: rate controlled with intermittent pacing. Continue Eliquis for stroke prophylaxis. 11. PPM in situ: on 07/03/2021 left chest incision looks good Plan Plan of Care Problems Medical Problems: (1) CHF (congestive heart failure) Status: Acute (2) Chronic respiratory failure with hypoxia Status: Acute (3) CKD (chronic kidney disease) Status: Acute (4) Dyspnea Status: Acute (5) Hyperkalemia Status: Acute (6) Pneumonia Status: Acute Comment Review of Relevant I have reviewed the following items yuly (where applicable) has been applied. Labs Laboratory Tests Test 07/29/21 05:50 Sodium Level 139 mmol/L (136-145) Potassium Level 6.0 mmol/L (3.5-5.1) Chloride Level 99 mmol/L (98-107) Carbon Dioxide Level 31 mmol/L (21-32) Anion Gap 9 (6-14) Blood Urea Nitrogen 49 mg/dL (7-20) Creatinine 2.4 mg/dL (0.6-1.0) Estimated GFR (Cockcroft-Gault) 19.0 BUN/Creatinine Ratio 20 (6-20) Glucose Level 148 mg/dL (70-99) Calcium Level 8.5 mg/dL (8.5-10.1) Magnesium Level 2.4 mg/dL (1.8-2.4) Total Bilirubin 0.3 mg/dL (0.2-1.0) Aspartate Amino Transf (AST/SGOT) 14 U/L (15-37) Alanine Aminotransferase (ALT/SGPT) 24 U/L (14-59) Alkaline Phosphatase 41 U/L (46-116) Total Protein 6.0 g/dL (6.4-8.2) Albumin 3.0 g/dL (3.4-5.0) Albumin/Globulin Ratio 1.0 (1.0-1.7) Medications Current Medications Info (Anti-Coagulation Monitoring By Pharmacy) 1 each PRN DAILY PRN MC PER PROTOCOL Last administered on 07/29/21at 11:06; Start 07/29/21 at 11:15 Sodium Polystyrene Sulfonate (Kayexalate) 15 gm 1X ONCE PO Last administered on 07/29/21at 10:36; Start 07/29/21 at 10:00; Stop 07/29/21 at 10:01; Status DC Vitals/I & O Vital Sign - Last 24 Hours 07/28/21 07/29/21 07/29/21 07/29/21 23:00 02:52 07:00 07:24 Temp 97.2 97.5 98.5 97.2 97.5 98.5 Pulse 64 75 75 Resp 18 18 20 B/P (MAP) 136/67 (90) 144/73 (96) 146/70 (95) Pulse Ox 95 93 95 O2 Delivery Nasal Cannula Nasal Cannula Nasal Cannula Nasal Cannula O2 Flow Rate 8.0 8.0 8.0 8.0 07/29/21 07/29/21 07/29/21 07/29/21 09:20 09:20 11:00 15:00 Temp 97.8 97.9 97.8 97.9 Pulse 75 75 75 72 Resp 20 20 B/P (MAP) 146/70 146/70 135/67 (89) 136/71 (92) Pulse Ox 90 95 O2 Delivery Nasal Cannula Nasal Cannula O2 Flow Rate 8.0 8.0 07/29/21 07/29/21 07/29/21 18:58 19:00 20:03 Temp 99.0 99.0 Pulse 69 69 Resp 20 B/P (MAP) 138/63 (88) 138/63 Pulse Ox 95 O2 Delivery Nasal Cannula Nasal Cannula O2 Flow Rate 8.0 Intake and Output 07/28/21 07/28/21 07/29/21 15:00 23:00 07:00 Intake Total 200 ml Balance 200 ml FELIPE ARBOLEDA MD Jul 29, 2021 21:43
[2021-07-29 23:02] VITALS: BP 142/76
[2021-07-30 03:12] VITALS: BP 140/89
[2021-07-30 07:00] VITALS: BP 145/75
[2021-07-30 07:32] LABS: CALCIUM 8.1 mg/dL (8.5-10.1); CREATININE 2.4 mg/dL (0.6-1.0); POTASSIUM 5.1 mmol/L (3.5-5.1)
[2021-07-30] MEDS: ASPIRIN ENTERIC COATED 81 MG TABLET.DR. PO SCH (07:32)
[2021-07-30] MEDS: LEVOTHYROXINE 100 MCG TABLET PO SCH (07:32)
[2021-07-30] MEDS: PANTOPRAZOLE 40 MG TABLET.DR. PO SCH (07:32)
[2021-07-30] MEDS: CITALOPRAM 10 MG TABLET. PO SCH (08:54)
[2021-07-30] MEDS: LACTOBACILLUS RHAMNOSUS GG 1 CAPSULE. PO SCH ×2 (08:54→20:27)
[2021-07-30] MEDS: MULTIVITAMIN with MINERAL TABLET. PO SCH (08:54)
[2021-07-30] MEDS: DOCUSATE SODIUM 100 MG CAPSULE. PO SCH ×2 (08:54→20:27)
[2021-07-30] MEDS: APIXABAN 2.5 MG TABLET. PO SCH (08:54)
[2021-07-30] MEDS: ASCORBIC ACID 500 MG TABLET PO SCH (08:54)
[2021-07-30] MEDS: methylPREDNISolone SOD SUCC PF 40 MG/ML VIAL. IV SCH ×2 (08:56→20:26)
[2021-07-30] MEDS: METOPROLOL TART IMMED RELEASE 25 MG TABLET. PO SCH ×2 (08:56→20:27)
--- NOTE | 2021-07-30 09:23 | PDOC ---
DATE OF SERVICE DATE: 07/30/21 TIME: 09:20 SUBJECTIVE ROS States she is not feeling very good, c/o pains and aches all over , mild nausea. Reports just had a bit of breakfast OBJECTIVE Vital Signs Vital Signs Date Time Temp Pulse Resp B/P (MAP) Pulse Ox O2 Delivery O2 Flow Rate FiO2 07/30/21 08:57 79 145/80 07/30/21 07:38 Nasal Cannula 8.0 07/30/21 07:00 97.5 15 99 97.5 I & 0 Intake and Output 07/30/21 06:59 Intake Total 240 ml Output Total 400 ml Balance -160 ml Intake Oral 240 ml Output Urine Total 400 ml # Voids 4 # Bowel Movements 3 PHYSICAL EXAM Physical Exam General: No acute distress HEENT: Mucous membr. moist/pink, On O2 by NC Neck Supple Abd soft, NT Lungs CTA, non labored CV S1S2 Skin: No breakdown, No significant lesion Neuro: Grossly normal. Has Dx of Dementia Psych/Mental Status: Mental status NL, Mood NL Extremities: No cyanosis, Other (1 + bilateral LE pitting edema) DIAGNOSIS/ASSESSMENT Assessment & Plan ENMA vs CKD - Cardiorenal Baseline Creat in Jun 2021 2.1 ; Renal function stable Baseline renal function unavailable . Renal US unremarkable Maintain fluid balance. Strict I/O ( not recorded ) , daily weight , supportive care, avoid Nephrotoxins HyperKalemia - Resolved with . Kayexalate x1 Acute Resp Failure - 2/2 CHF - Increase in O2 (Home 02 2 lts ) , Cardiology managing Abnormal CxR - repeat - similar to initial per radiology . Cardiology managing . Atrial fibrillation - per cardiology SSS, tachy-chang syndrome with significant pause. S/p single-chamber permanent pacemaker implantation recently Valvular heart disease; echo with mild to moderate and mild to moderate TR. Estimated PAP 70-75 mmHg. Cardiomyopathy; LVEF 45% with global hypokinesis of the LV Dementia Hypertension, labile- stable currently COMMENT/RELEVANT DATA Meds Current Medications Medications (Trade) Dose Ordered Sig/Tor Start Time Stop Time Status Last Admin Dose Admin Acetaminophen (Tylenol) 650 mg PRN Q6HRS PRN 07/26/21 01:45 07/26/21 19:35 650 MG Albuterol Sulfate (Ventolin Neb Soln) 2.5 mg PRN Q4HRS PRN 07/26/21 12:30 07/28/21 11:36 2.5 MG Amlodipine Besylate (Norvasc) 10 mg DAILY 07/25/21 17:00 07/30/21 08:57 10 MG Apixaban (Eliquis) 2.5 mg BID 07/24/21 21:00 07/30/21 08:54 2.5 MG Ascorbic Acid (Vitamin C) 500 mg DAILY 07/26/21 09:00 07/30/21 08:54 500 MG Aspirin (Ecotrin) 81 mg DAILYWBKFT 07/25/21 17:00 07/30/21 07:32 81 MG Azithromycin (Zithromax) 250 mg DAILY 07/25/21 19:00 07/28/21 09:01 DC 07/28/21 09:19 250 MG Azithromycin 500 mg/Sodium Chloride 250 ml @ 250 mls/hr 1X ONCE 07/24/21 19:00 07/24/21 19:59 DC 07/24/21 19:48 250 MLS/HR Ceftriaxone Sodium (Rocephin) 1 gm Q24H 07/25/21 20:00 07/29/21 20:02 1 GM Citalopram Hydrobromide (CeleXA) 10 mg DAILY 07/25/21 17:00 07/30/21 08:54 10 MG Docusate Sodium (Colace) 100 mg BID 07/25/21 21:00 07/30/21 08:54 100 MG Fentanyl Citrate (Fentanyl 2ml Vial) 25 mcg PRN Q3HRS PRN 07/26/21 02:30 07/27/21 19:35 25 MCG Furosemide (Lasix) 40 mg 1X ONCE 07/28/21 12:00 07/28/21 12:01 DC 07/28/21 12:23 40 MG Info (Anti-Coagulation Monitoring By Pharmacy) 1 each PRN DAILY PRN 07/29/21 11:15 07/29/21 11:06 1 EACH Lactobacillus Rhamnosus (Culturelle) 1 cap BID 07/26/21 21:00 07/30/21 08:54 1 CAP Levothyroxine Sodium (Synthroid) 100 mcg DAILY07 07/26/21 07:00 07/30/21 07:32 100 MCG Methylprednisolone Sodium Succinate (SOLU-Medrol 40MG VIAL) 40 mg Q12HR 07/28/21 12:30 07/30/21 08:56 40 MG Metoprolol Tartrate (Lopressor) 25 mg BID 07/25/21 21:00 07/30/21 08:56 25 MG Multivitamins (Thera M Plus) 1 tab DAILY 07/26/21 09:00 07/30/21 08:54 1 TAB Ondansetron HCl (Zofran) 4 mg PRN Q4HRS PRN 07/25/21 20:30 07/29/21 21:41 4 MG Pantoprazole Sodium (Protonix) 40 mg DAILYAC 07/26/21 07:30 07/30/21 07:32 40 MG Sodium Polystyrene Sulfonate (Kayexalate) 15 gm 1X ONCE 07/29/21 10:00 07/29/21 10:01 DC 07/29/21 10:36 15 GM Lab Laboratory Tests Test 07/30/21 06:25 Sodium Level 142 mmol/L (136-145) Potassium Level 5.1 mmol/L (3.5-5.1) Chloride Level 100 mmol/L (98-107) Carbon Dioxide Level 37 mmol/L (21-32) Anion Gap 5 (6-14) Blood Urea Nitrogen 52 mg/dL (7-20) Creatinine 2.4 mg/dL (0.6-1.0) Estimated GFR (Cockcroft-Gault) 19.0 Glucose Level 129 mg/dL (70-99) Calcium Level 8.1 mg/dL (8.5-10.1) Results All relevant outside records, renal labs, imaging studies, telemetry/EKG's were reviewed. Justicifation of Admission Dx: Justifications for Admission: Justification of Admission Dx: Yes RITA KIRAN MD Jul 30, 2021 09:23
--- NOTE | 2021-07-30 09:24 | NUR ---
Pt given morning medications by this RN with applesauce. Shortly after, pt vomited and stated she had chest pain. Pt unable to explain description of pain to this RN. Pt stated "I just ain't breathing right." Pt then stated "I hurt all over." This RN called and notified Dr. Burns. Dr. Burns stated he would be over to see the pt. Addendum: 07/30/21 at 0941 by CHUCK YEN RN Add to previous: Pt's O2 sat 96%, VSS. Pt instructed to take deep breaths in through nose, out through mouth. Dr. Burns came to see pt, new orders placed by Dr. Burns.
[2021-07-30] MEDS ORDERED: MORPHINE SULFATE 2 MG/ML INJ. IM ONE (09:45)
--- NOTE | 2021-07-30 09:49 | NUR ---
This RN called and verified orders for morphine with Dr. Burns. Morphine ordered as IM, to be given IV per Dr. Burns. Refer to orders for additional details.
[2021-07-30] MEDS ORDERED: MORPHINE SULFATE 2 MG/ML INJ. IVP ONE (10:15)
--- NOTE | 2021-07-30 10:46 | PDOC ---
[employer] PROGRESS NOTE Date of Service DOS: DATE: 07/30/21 TIME: 10:43 Chief Complaint Chief Complaint Multifactorial respiratory failure with pneumonia and CHF Appendectomy Cholecystectomy Hip replacement Pacemaker Tonsillectomy Left arm clot removed Colon resection Previous tobacco abuse with probable COPD Chronic anticoagulation GERD Hypothyroidism History of Present Illness History of Present Illness 07/30/2021 Patient seen and examined twice this morning On first visit she seemed to be kind of plateaued but was on 8 L of oxygen still and very weak The nurse then call me back because the patient became more confused weak coughing and hypoxic The repeat chest x-ray was read as stable effusion but by my eye the left side is larger. I called Dr. Meier he agrees were going to order a thoracentesis but we will need to hold her Eliquis for 1 day first Chart reviewed Discussed with RN 07/29/2021 Patient seen and examined Discussed with RN Chart reviewed Patient is resting with no apparent distress Has O2 per nasal cannula at 8 L Potassium is up to 6 today 07/28/2021 Patient seen and examined Has 2 family members present one is her son the other is his they seem to be good support for her Discussed with RN Chart reviewed 07/27/2021 Patient seen and examined at bedside this morning Patient states she "still is not breathing well" Discussed with RN RN states patient had a rapid response yesterday Chart reviewed 07/26/2021 Patient seen and examined Discussed with RN Chart reviewed Vitals/I&O Vitals/I&O: Vital Signs Date Time Temp Pulse Resp B/P (MAP) Pulse Ox O2 Delivery O2 Flow Rate FiO2 07/30/21 08:57 79 145/80 07/30/21 07:38 Nasal Cannula 8.0 07/30/21 07:00 97.5 15 99 97.5 I & O 07/29/21 07/29/21 07/30/21 15:00 23:00 07:00 Intake Total 120 ml 120 ml Output Total 400 ml Balance 120 ml 120 ml -400 ml Physical Exam General: mild distress Heart: Normal S1, Normal S2, Other (ESM aortic) Lungs: Wheezing, Crackles, Other (Slight wheeze and crackles but better than yesterday a little pursed lipped breathing) Abdomen: Normal bowel sounds, Soft, No tenderness, No hepatosplenomegaly, No masses Extremities: No clubbing, No cyanosis, No edema, Normal pulses, No tenderne ss/swelling Skin: No rashes Labs Labs: Laboratory Tests Test 07/30/21 06:25 Sodium Level 142 mmol/L (136-145) Potassium Level 5.1 mmol/L (3.5-5.1) Chloride Level 100 mmol/L (98-107) Carbon Dioxide Level 37 mmol/L (21-32) Anion Gap 5 (6-14) Blood Urea Nitrogen 52 mg/dL (7-20) Creatinine 2.4 mg/dL (0.6-1.0) Estimated GFR (Cockcroft-Gault) 19.0 Glucose Level 129 mg/dL (70-99) Calcium Level 8.1 mg/dL (8.5-10.1) Assessment and Plan Assessmemt and Plan Problems Medical Problems: (1) CHF (congestive heart failure) Status: Acute (2) Chronic respiratory failure with hypoxia Status: Acute (3) CKD (chronic kidney disease) Status: Acute (4) Dyspnea Status: Acute (5) Hyperkalemia Status: Acute (6) Pneumonia Status: Acute Multifactorial respiratory failure with pneumonia and CHF Hyperkalemia Appendectomy Cholecystectomy Hip replacement Pacemaker Tonsillectomy Left arm clot removed Colon resection Previous tobacco abuse with probable COPD Chronic anticoagulation GERD Hypothyroidism Plan As per above we would like to do a thoracentesis on the left but will need to hold her Eliquis for a day first For now continue the following; IV antibiotics IV steroids added in Cardio and nephro following Plus minus Lasix per nephrology and cardiology Cardiac monitoring Beta agonist Oxygen Home meds DVT prophylaxis Do Not Resuscitate Trend labs Encourage p.o. intake Added in some as needed low-dose morphine Probably need [facility] in a couple days Long-term prognosis guarded Comment Review of Relevant I have reviewed the following items yuly (where applicable) has been applied. Medications: Current Medications Medications (Trade) Dose Ordered Sig/Tor Route PRN Reason Start Time Stop Time Status Last Admin Dose Admin Info (Anti-Coagulation Monitoring By Pharmacy) 1 each PRN DAILY PRN MC PER PROTOCOL 07/29/21 11:15 07/29/21 11:06 Morphine Sulfate (Morphine Sulfate) 1 mg 1X ONCE IVP 07/30/21 10:15 07/30/21 10:16 DC 07/30/21 10:19 Justifications for Admission Other Justification JENNIE CHACON III DO Jul 30, 2021 10:46
[2021-07-30 11:00] VITALS: BP 151/77
--- NOTE | 2021-07-30 13:49 | PDOC ---
PROGRESS NOTES Date of Service: DATE: 07/30/21 TIME: 13:49 Subjective Subjective Confused, on 8L O2 Objective Objective Vital Signs Date Time Temp Pulse Resp B/P (MAP) Pulse Ox O2 Delivery O2 Flow Rate FiO2 07/30/21 11:00 97.4 73 17 151/77 (101) 97 Nasal Cannula 8.0 97.4 Intake and Output 07/30/21 07:00 Intake Total 240 ml Output Total 400 ml Balance -160 ml Intake Oral 240 ml Output Urine Total 400 ml # Voids 4 # Bowel Movements 3 Physical Exam Abdomen: Normal bowel sounds, Soft, No tenderness, No hepatosplenomegaly, No masses Heart: Normal S1, Normal S2, Other (ESM aortic) Extremities: No clubbing, No cyanosis, No edema, Normal pulses, No tenderness/swelling General: mild distress HEENT: Atraumatic, Mucous membr. moist/pink Lungs: Other (bilat rhonchi) Neuro: Normal speech Psych/Mental Status: Mental status NL, Mood NL Skin: No rashes Diagnosis RENAL FAILURE: Chronic (CKD stage IV) Assessment Assessment 1 Acute on chronic systolic HF: Improved. IR considering thoracentesis - OK to hold eliquis for the procedure 2. ENMA with hyperkalemia: nephrology following 3. recent PE 4. Valvular heart disease; echo with mild to moderate and mild to moderate TR. Estimated PAP 70-75 mmHg. 5. Cardiomyopathy; LVEF 45% with global hypokinesis of the LV 6. Dementia 7. Hypertension, labile episodes 8. SSS, tachy-chang syndrome: S/P PPM biotronik 9. Severe pulmonary HTN 10. Persistent AFIB: rate controlled with intermittent pacing. Continue Eliquis for stroke prophylaxis. 11. PPM in situ: on 07/03/2021 left chest incision looks good Plan Plan of Care Problems Medical Problems: (1) CHF (congestive heart failure) Status: Acute (2) Chronic respiratory failure with hypoxia Status: Acute (3) CKD (chronic kidney disease) Status: Acute (4) Dyspnea Status: Acute (5) Hyperkalemia Status: Acute (6) Pneumonia Status: Acute Comment Review of Relevant I have reviewed the following items yuly (where applicable) has been applied. Labs Laboratory Tests Test 07/30/21 06:25 Sodium Level 142 mmol/L (136-145) Potassium Level 5.1 mmol/L (3.5-5.1) Chloride Level 100 mmol/L (98-107) Carbon Dioxide Level 37 mmol/L (21-32) Anion Gap 5 (6-14) Blood Urea Nitrogen 52 mg/dL (7-20) Creatinine 2.4 mg/dL (0.6-1.0) Estimated GFR (Cockcroft-Gault) 19.0 Glucose Level 129 mg/dL (70-99) Calcium Level 8.1 mg/dL (8.5-10.1) Medications Current Medications Apixaban (Eliquis) 2.5 mg BID PO ; Start 08/01/21 at 09:00 Morphine Sulfate (Morphine Sulfate) 1 mg 1X ONCE IM ; Start 07/30/21 at 09:45; Stop 07/30/21 at 09:46; Status Cancel Morphine Sulfate (Morphine Sulfate) 1 mg 1X ONCE IVP Last administered on 07/30/21at 10:19; Start 07/30/21 at 10:15; Stop 07/30/21 at 10:16; Status DC Vitals/I & O Vital Sign - Last 24 Hours 07/29/21 07/29/21 07/29/21 07/29/21 15:00 18:58 19:00 20:03 Temp 97.9 99.0 97.9 99.0 Pulse 72 69 69 Resp 20 20 B/P (MAP) 136/71 (92) 138/63 (88) 138/63 Pulse Ox 95 95 O2 Delivery Nasal Cannula Nasal Cannula Nasal Cannula O2 Flow Rate 8.0 8.0 07/29/21 07/30/21 07/30/21 07/30/21 23:02 03:12 07:00 07:38 Temp 98.1 97.5 97.5 98.1 97.5 97.5 Pulse 68 79 79 Resp 18 20 15 B/P (MAP) 142/76 (98) 140/89 (106) 145/75 (98) Pulse Ox 100 99 99 O2 Delivery Nasal Cannula Nasal Cannula Nasal Cannula Nasal Cannula O2 Flow Rate 8.0 8.0 07/30/21 07/30/21 07/30/21 08:56 08:57 11:00 Temp 97.4 97.4 Pulse 79 79 73 Resp 17 B/P (MAP) 145/80 145/80 151/77 (101) Pulse Ox 97 O2 Delivery Nasal Cannula O2 Flow Rate 8.0 Intake and Output 07/29/21 07/29/21 07/30/21 15:00 23:00 07:00 Intake Total 120 ml 120 ml Output Total 400 ml Balance 120 ml 120 ml -400 ml FELIPE ARBOLEDA MD Jul 30, 2021 13:49
[2021-07-30 15:00] VITALS: BP 150/73
--- NOTE | 2021-07-30 17:50 | NUR ---
Pt's daughter requested medication to help pt sleep at night and "nasal spray." This RN received telephone orders for saline nasal spray and Restoril 15 mg PO @ HS.
[2021-07-30 19:00] VITALS: BP 147/66
[2021-07-30] MEDS: TEMAZEPAM 15 MG CAPSULE PO PRN (20:26)
[2021-07-30] MEDS: cefTRIAXone IV Push 1 GM VIAL. IVP SCH (21:21)
[2021-07-30 23:00] VITALS: BP 142/91
[2021-07-31] VITALS (8 sets, daily range): BP systolic 107–168; BP diastolic 68–85
[2021-07-31] MEDS: PANTOPRAZOLE 40 MG TABLET.DR. PO SCH (05:58)
[2021-07-31] MEDS: LEVOTHYROXINE 100 MCG TABLET PO SCH (05:58)
--- NOTE | 2021-07-31 08:21 | PDOC ---
[facility] [facility] PROGRESS NOTE Date of Service DOS: DATE: 07/31/21 TIME: 08:19 Chief Complaint Chief Complaint Multifactorial respiratory failure with pneumonia and CHF Appendectomy Cholecystectomy Hip replacement Pacemaker Tonsillectomy Left arm clot removed Colon resection Previous tobacco abuse with probable COPD Chronic anticoagulation GERD Hypothyroidism History of Present Illness History of Present Illness 07/31/2021 Patient seen and examined Discussed with RN Chart reviewed She is going for thoracentesis today 07/30/2021 Patient seen and examined twice this morning On first visit she seemed to be kind of plateaued but was on 8 L of oxygen still and very weak The nurse then call me back because the patient became more confused weak coughing and hypoxic The repeat chest x-ray was read as stable effusion but by my eye the left side is larger. I called Dr. Meier he agrees were going to order a thoracentesis but we will need to hold her Eliquis for 1 day first Chart reviewed Discussed with RN 07/29/2021 Patient seen and examined Discussed with RN Chart reviewed Patient is resting with no apparent distress Has O2 per nasal cannula at 8 L Potassium is up to 6 today 07/28/2021 Patient seen and examined Has 2 family members present one is her son the other is his they seem to be good support for her Discussed with RN Chart reviewed 07/27/2021 Patient seen and examined at bedside this morning Patient states she "still is not breathing well" Discussed with RN RN states patient had a rapid response yesterday Chart reviewed 07/26/2021 Patient seen and examined Discussed with RN Chart reviewed Vitals/I&O Vitals/I&O: Vital Signs Date Time Temp Pulse Resp B/P (MAP) Pulse Ox O2 Delivery O2 Flow Rate FiO2 07/31/21 03:00 98.0 78 18 154/85 (108) 97 98.0 07/30/21 20:00 Nasal Cannula 8.0 I & O 07/30/21 07/30/21 07/31/21 15:00 23:00 07:00 Intake Total 180 ml 120 ml 120 ml Output Total 10 ml 0 ml Balance 170 ml 120 ml 120 ml Physical Exam General: mild distress Heart: Normal S1, Normal S2, Other (ESM aortic) Lungs: Wheezing, Crackles, Other (Slight wheeze and crackles but better than yesterday a little pursed lipped breathing) Abdomen: Normal bowel sounds, Soft, No tenderness, No hepatosplenomegaly, No masses Extremities: No clubbing, No cyanosis, No edema, Normal pulses, No tenderness/swelling Skin: No rashes Assessment and Plan Assessmemt and Plan Problems Medical Problems: (1) CHF (congestive heart failure) Status: Acute (2) Chronic respiratory failure with hypoxia Status: Acute (3) CKD (chronic kidney disease) Status: Acute (4) Dyspnea Status: Acute (5) Hyperkalemia Status: Acute (6) Pneumonia Status: Acute Multifactorial respiratory failure with pneumonia and CHF Large effusion Hyperkalemia Appendectomy Cholecystectomy Hip replacement Pacemaker Tonsillectomy Left arm clot removed Colon resection Previous tobacco abuse with probable COPD Chronic anticoagulation GERD Hypothyroidism Plan Going for thoracentesis today (we have held her Eliquis yesterday and this morning) For now continue the following; IV antibiotics IV steroids added in Cardio and nephro following Plus minus Lasix per nephrology and cardiology Cardiac monitoring Beta agonist Oxygen Home meds DVT prophylaxis Do Not Resuscitate Trend labs Encourage p.o. intake Added in some as needed low-dose morphine Probably need long-term in a couple days Comment Review of Relevant I have reviewed the following items yuly (where applicable) has been applied. Medications: Current Medications Medications (Trade) Dose Ordered Sig/Tor Route PRN Reason Start Time Stop Time Status Last Admin Dose Admin Morphine Sulfate (Morphine Sulfate) 1 mg 1X ONCE IVP 07/30/21 10:15 07/30/21 10:16 DC 07/30/21 10:19 Temazepam (Restoril) 15 mg PRN QHS PRN PO INSOMNIA 07/30/21 18:00 07/30/21 20:26 Justifications for Admission Other Justification JENNIE CHACON III DO Jul 31, 2021 08:20
[2021-07-31] MEDS: ASPIRIN ENTERIC COATED 81 MG TABLET.DR. PO SCH (08:26)
[2021-07-31] MEDS: CITALOPRAM 10 MG TABLET. PO SCH (08:26)
[2021-07-31] MEDS: LACTOBACILLUS RHAMNOSUS GG 1 CAPSULE. PO SCH ×2 (08:26→21:38)
[2021-07-31] MEDS: MULTIVITAMIN with MINERAL TABLET. PO SCH (08:26)
[2021-07-31] MEDS: METOPROLOL TART IMMED RELEASE 25 MG TABLET. PO SCH ×2 (08:27→21:39)
[2021-07-31] MEDS: ASCORBIC ACID 500 MG TABLET PO SCH (08:27)
[2021-07-31] MEDS: DOCUSATE SODIUM 100 MG CAPSULE. PO SCH ×2 (08:27→21:35)
[2021-07-31] MEDS: methylPREDNISolone SOD SUCC PF 40 MG/ML VIAL. IV SCH ×2 (08:28→21:35)
--- NOTE | 2021-07-31 09:17 | PDOC ---
DATE OF SERVICE DATE: 07/31/21 TIME: 09:14 SUBJECTIVE ROS No change clinically. No Vomiting. On o2 10 lts S/P Thoracentesis Lt today OBJECTIVE Vital Signs Vital Signs Date Time Temp Pulse Resp B/P (MAP) Pulse Ox O2 Delivery O2 Flow Rate FiO2 07/31/21 09:10 100 10.0 07/31/21 09:06 81 167/81 (109) Nasal Cannula 07/31/21 07:00 97.3 13 97.3 I & 0 Intake and Output 07/31/21 07:00 Intake Total 420 ml Output Total 10 ml Balance 410 ml Intake Oral 420 ml Output Urine Total 0 ml Emesis 10 ml PHYSICAL EXAM Physical Exam General: No acute distress HEENT: Mucous membr. moist/pink, On O2 by NC Neck Supple Abd soft, NT Lungs CTA, non labored CV S1S2 Skin: No breakdown, No significant lesion Neuro: Grossly normal. Has Dx of Dementia Psych/Mental Status: Mental status NL, Mood NL Extremities: No cyanosis, Other (1 + bilateral LE pitting edema) DIAGNOSIS/ASSESSMENT Assessment & Plan ENMA vs CKD - Cardiorenal Baseline Creat in Jun 2021 2.1 ; Renal function has been stable. Baseline renal function unavailable . Renal US unremarkable Maintain fluid balance. Strict I/O ( not recorded ) , daily weight , supportive care, avoid Nephrotoxins HyperKalemia - Resolved with . Kayexalate x1 Acute Resp Failure - 2/2 CHF - Increase in O2 (Home 02 2 lts ) , Cardiology managing Abnormal CxR - Stable diffuse infiltrate with suspected partial bilateral lower lobe consolidation. Right small and moderate left pleural effusions- s/p Lt thoracentesis with re moval 0.7 L of fluid today Atrial fibrillation - per cardiology SSS, tachy-chang syndrome with significant pause. S/p single-chamber permanent pacemaker implantation recently Valvular heart disease; echo with mild to moderate and mild to moderate TR. Estimated PAP 70-75 mmHg. Cardiomyopathy; LVEF 45% with global hypokinesis of the LV Dementia Hypertension, labile- stable currently COMMENT/RELEVANT DATA Meds Current Medications Medications (Trade) Dose Ordered Sig/Tor Start Time Stop Time Status Last Admin Dose Admin Acetaminophen (Tylenol) 650 mg PRN Q6HRS PRN 07/26/21 01:45 07/26/21 19:35 650 MG Albuterol Sulfate (Ventolin Neb Soln) 2.5 mg PRN Q4HRS PRN 07/26/21 12:30 07/28/21 11:36 2.5 MG Amlodipine Besylate (Norvasc) 10 mg DAILY 07/25/21 17:00 07/31/21 08:26 10 MG Apixaban (Eliquis) 2.5 mg BID 08/01/21 09:00 Ascorbic Acid (Vitamin C) 500 mg DAILY 07/26/21 09:00 07/31/21 08:27 500 MG Aspirin (Ecotrin) 81 mg DAILYWBKFT 07/25/21 17:00 07/31/21 08:26 81 MG Azithromycin (Zithromax) 250 mg DAILY 07/25/21 19:00 07/28/21 09:01 DC 07/28/21 09:19 250 MG Azithromycin 500 mg/Sodium Chloride 250 ml @ 250 mls/hr 1X ONCE 07/24/21 19:00 07/24/21 19:59 DC 07/24/21 19:48 250 MLS/HR Ceftriaxone Sodium (Rocephin) 1 gm Q24H 07/25/21 20:00 07/30/21 21:21 1 GM Citalopram Hydrobromide (CeleXA) 10 mg DAILY 07/25/21 17:00 07/31/21 08:26 10 MG Docusate Sodium (Colace) 100 mg BID 07/25/21 21:00 07/31/21 08:27 100 MG Fentanyl Citrate (Fentanyl 2ml Vial) 25 mcg PRN Q3HRS PRN 07/26/21 02:30 07/27/21 19:35 25 MCG Furosemide (Lasix) 40 mg 1X ONCE 07/28/21 12:00 07/28/21 12:01 DC 07/28/21 12:23 40 MG Info (Anti-Coagulation Monitoring By Pharmacy) 1 each PRN DAILY PRN 07/29/21 11:15 07/29/21 11:06 1 EACH Lactobacillus Rhamnosus (Culturelle) 1 cap BID 07/26/21 21:00 07/31/21 08:26 1 CAP Levothyroxine Sodium (Synthroid) 100 mcg DAILY07 07/26/21 07:00 07/31/21 05:58 100 MCG Methylprednisolone Sodium Succinate (SOLU-Medrol 40MG VIAL) 40 mg Q12HR 07/28/21 12:30 07/31/21 08:28 40 MG Metoprolol Tartrate (Lopressor) 25 mg BID 07/25/21 21:00 07/31/21 08:27 25 MG Morphine Sulfate (Morphine Sulfate) 1 mg 1X ONCE 07/30/21 10:15 07/30/21 10:16 DC 07/30/21 10:19 1 MG Multivitamins (Thera M Plus) 1 tab DAILY 07/26/21 09:00 07/31/21 08:26 1 TAB Ondansetron HCl (Zofran) 4 mg PRN Q4HRS PRN 07/25/21 20:30 07/29/21 21:41 4 MG Pantoprazole Sodium (Protonix) 40 mg DAILYAC 07/26/21 07:30 07/31/21 05:58 40 MG Sodium Polystyrene Sulfonate (Kayexalate) 15 gm 1X ONCE 07/29/21 10:00 07/29/21 10:01 DC 07/29/21 10:36 15 GM Sodium Chloride (Saline Mist Nasal) 1 david PRN Q1HR PRN 07/30/21 18:00 Temazepam (Restoril) 15 mg PRN QHS PRN 07/30/21 18:00 07/30/21 20:26 15 MG Results All relevant outside records, renal labs, imaging studies, telemetry/EKG's were reviewed. Justicifation of Admission Dx: Justifications for Admission: Justification of Admission Dx: Yes RITA KIRAN MD Jul 31, 2021 09:17
--- NOTE | 2021-07-31 09:23 | RAD ---
Left Thoracentesis 07/31/2021 8:48 AM Clinical History: Left pleural effusion. Technique: Relative benefits risks and alternatives were discussed with the patient and/or their rep resentative. Written informed consent was obtained. The patient was placed in seated position. A diamond eout procedure was performed. Sonographic assessment demonstrates a large pleural effusion. A site for skin entry was selected, and subsequently prepped and draped using sterile barrier technique. 1% lidocaine without epinepherine was administered for local anesthesia to the skin and subcutaenous tissues. A 5 [place] sheathed needle was passed into the pleural space. Clear yellow fluid was aspirated and t he catheter was connected to a vacuum. Approximately 0.7 liters of fluid were drained. The catheter was removed and adequate hemostasis was obtained. A sterile dressing was applied. The patient tolera wenceslao the procedure well, without complications. Impression: Successful ultrasound guided thoracentesis with removal 0.7 L of fluid Electronically signed by: Barrington Odom MD (07/31/2021 9:21 AM) [id number]
[2021-07-31 11:35] LABS: BF COLOR YELLOW; BF SOURCE PLEURAL
[2021-07-31 11:36] LABS: BF CLARITY CLEAR; BF MON % 94 %; BF PMN % 6 %; BF RBC COUNT 61 /cmm (Not Established); BF WBC COUNT 142 /cmm (Not Established)
--- NOTE | 2021-07-31 13:57 | PDOC ---
PROGRESS NOTES Date of Service: DATE: 07/31/21 TIME: 13:57 Subjective Subjective Agitated over bad tasting food, no other new complaints Objective Objective Vital Signs Date Time Temp Pulse Resp B/P (MAP) Pulse Ox O2 Delivery O2 Flow Rate FiO2 07/31/21 11:00 97.4 81 13 107/74 (85) 95 Nasal Cannula 8.0 97.4 Intake and Output 07/31/21 07:00 Intake Total 420 ml Output Total 10 ml Balance 410 ml Intake Oral 420 ml Output Urine Total 0 ml Emesis 10 ml Physical Exam Abdomen: Normal bowel sounds, Soft, No tenderness, No hepatosplenomegaly, No m asses Heart: Normal S1, Normal S2, Other (ESM aortic) Extremities: No clubbing, No cyanosis, No edema, Normal pulses, No tenderness/swelling General: mild distress HEENT: Atraumatic, Mucous membr. moist/pink Lungs: Other (bilat rhonchi) Neuro: Normal speech Psych/Mental Status: Mental status NL, Mood NL Skin: No rashes Diagnosis RENAL FAILURE: Chronic (CKD stage IV) Assessment Assessment 1 Acute on chronic systolic HF: Improved. IR planning thoracentesis today - OK to hold eliquis for the procedure 2. ENMA with hyperkalemia: nephrology following 3. recent PE 4. Valvular heart disease; echo with mild to moderate and mild to moderate TR. Estimated PAP 70-75 mmHg. 5. Cardiomyopathy; LVEF 45% with global hypokinesis of the LV 6. Dementia 7. Hypertension, labile episodes 8. SSS, tachy-chang syndrome: S/P PPM biotronik 9. Severe pulmonary HTN 10. Persistent AFIB: rate controlled with intermittent pacing. Continue Eliquis for stroke prophylaxis. 11. PPM in situ: on 07/03/2021 left chest incision looks good Plan Plan of Care Problems Medical Problems: (1) CHF (congestive heart failure) Status: Acute (2) Chronic respiratory failure with hypoxia Status: Acute (3) CKD (chronic kidney disease) Status: Acute (4) Dyspnea Status: Acute (5) Hyperkalemia Status: Acute (6) Pneumonia Status: Acute Comment Review of Relevant I have reviewed the following items yuly (where applicable) has been applied. Labs Laboratory Tests Test 07/31/21 09:10 Body Fluid Source Pleural Body Fluid Color Yellow Body Fluid Clarity Clear Body Fluid pH 7.19 Body Fluid Nucleated Cells 142 /cmm (Not Established) Body Fluid Mononuclear WBCs (%) 94 % Body Fluid Polymorphonuclear Cells 6 % Body Fluid Total RBCs Counted 61 /cmm (Not Established) Medications Current Medications Apixaban (Eliquis) 2.5 mg BID PO ; Start 08/01/21 at 09:00 Cefdinir (Omnicef) 300 mg QHS PO ; Start 07/31/21 at 21:00 Sodium Chloride (Saline Mist Nasal) 1 david PRN Q1HR PRN NS NASAL CONGESTION; Start 07/30/21 at 18:00 Temazepam (Restoril) 15 mg PRN QHS PRN PO INSOMNIA Last administered on 07/30/21at 20:26; Start 07/30/21 at 18:00 Vitals/I & O Vital Sign - Last 24 Hours 07/30/21 07/30/21 07/30/21 07/30/21 15:00 19:00 20:00 20:27 Temp 97.6 98.0 97.6 98.0 Pulse 70 67 70 Resp 20 16 B/P (MAP) 150/73 (98) 147/66 (93) 150/73 Pulse Ox 97 99 O2 Delivery Room Air Nasal Cannula O2 Flow Rate 8.0 8.0 07/30/21 07/31/21 07/31/21 07/31/21 23:00 03:00 07:00 08:00 Temp 98.6 98.0 97.3 98.6 98.0 97.3 Pulse 68 78 79 Resp 16 18 13 B/P (MAP) 142/91 (108) 154/85 (108) 152/80 (104) Pulse Ox 97 97 97 O2 Delivery Nasal Cannula Nasal Cannula O2 Flow Rate 8.0 8.0 07/31/21 07/31/21 07/31/21 07/31/21 08:26 08:27 09:06 09:10 Pulse 79 79 81 B/P (MAP) 152/80 152/80 167/81 (109) Pulse Ox 88 100 O2 Delivery Nasal Cannula O2 Flow Rate 10.0 10.0 07/31/21 07/31/21 09:16 11:00 Temp 97.4 97.4 Pulse 78 81 Resp 13 B/P (MAP) 168/68 (101) 107/74 (85) Pulse Ox 99 95 O2 Delivery Nasal Cannula Nasal Cannula O2 Flow Rate 10.0 8.0 Intake and Output 07/30/21 07/30/21 07/31/21 15:00 23:00 07:00 Intake Total 180 ml 120 ml 120 ml Output Total 10 ml 0 ml Balance 170 ml 120 ml 120 ml FELIPE ARBOLEDA MD Jul 31, 2021 13:57
--- NOTE | 2021-07-31 15:06 | RAD ---
EXAM: XR CHEST 1V 07/31/2021 11:56 AM CLINICAL INDICATION: Postthoracentesis COMPARISON: Chest 07/28/2021 TECHNIQUE: AP upright view of the chest FINDINGS: There is a single lead pacemaker. The heart is normal in size. A moderate left pleural eff usion has decreased, now small. A small right pleural effusion and basilar opacities are unchanged. T here is no definite pneumothorax. Chronic deformity of the left proximal humerus is unchanged. IMPRESSION: Decreased left pleural effusion postthoracentesis. No pneumothorax. Electronically signed by: Christine Milligan MD (07/31/2021 3:04 PM) [id number]
[2021-07-31] MEDS: CEFDINIR 300 MG CAPSULE PO SCH (21:35)
[2021-07-31] MEDS: ONDANSETRON PF 4 MG/2 ML VIAL. IVP PRN (21:46)
[2021-07-31] MEDS: ACETAMINOPHEN 325 MG TABLET. PO PRN (22:00)
[2021-08-01] MEDS: DOCUSATE SODIUM 100 MG CAPSULE. PO SCH ×3 (01:10→22:00)
[2021-08-01] MEDS: LACTOBACILLUS RHAMNOSUS GG 1 CAPSULE. PO SCH ×3 (01:11→21:59)
[2021-08-01] MEDS: METOPROLOL TART IMMED RELEASE 25 MG TABLET. PO SCH ×3 (01:13→22:00)
[2021-08-01] MEDS: CEFDINIR 300 MG CAPSULE PO SCH ×2 (01:15→21:59)
[2021-08-01 03:00] VITALS: BP 153/86
[2021-08-01 05:02] LABS: CALCIUM 8.3 mg/dL (8.5-10.1); CREATININE 1.9 mg/dL (0.6-1.0); GFR 24.9; POTASSIUM 5.4 mmol/L (3.5-5.1)
[2021-08-01] MEDS: LEVOTHYROXINE 100 MCG TABLET PO SCH (06:08)
[2021-08-01 07:00] VITALS: BP 175/86
[2021-08-01] MEDS: MULTIVITAMIN with MINERAL TABLET. PO SCH (08:10)
[2021-08-01] MEDS: ASPIRIN ENTERIC COATED 81 MG TABLET.DR. PO SCH (08:10)
[2021-08-01] MEDS: ASCORBIC ACID 500 MG TABLET PO SCH (08:11)
[2021-08-01] MEDS: PANTOPRAZOLE 40 MG TABLET.DR. PO SCH (08:11)
[2021-08-01] MEDS: CITALOPRAM 10 MG TABLET. PO SCH (08:11)
[2021-08-01] MEDS: APIXABAN 2.5 MG TABLET. PO SCH ×2 (08:11→22:00)
[2021-08-01] MEDS: methylPREDNISolone SOD SUCC PF 40 MG/ML VIAL. IV SCH ×2 (08:12→22:00)
--- NOTE | 2021-08-01 09:11 | PDOC ---
DATE OF SERVICE DATE: 08/01/21 TIME: 09:06 SUBJECTIVE ROS S/P Thoracentesis 07/31 Propped up in bed . Denies any N/V. On O2 by NC OBJECTIVE Vital Signs Vital Signs Date Time Temp Pulse Resp B/P (MAP) Pulse Ox O2 Delivery O2 Flow Rate FiO2 08/01/21 08:12 67 153/86 08/01/21 07:00 97.8 26 94 97.8 07/31/21 21:30 Nasal Cannula 8.0 I & 0 Intake and Output 08/01/21 07:00 Intake Total 120 ml Output Total 975 ml Balance -855 ml Intake Oral 120 ml Output Urine Total 275 ml Drainage Total 700 ml # Voids 2 PHYSICAL EXAM Physical Exam General: No acute distress HEENT: Mucous membr. moist/pink, On O2 by NC Neck Supple Abd soft, NT Lungs CTA, non labored CV S1S2 Skin: No breakdown, No significant lesion Neuro: Grossly normal. Has Dx of Dementia Psych/Mental Status: Mental status NL, Mood NL Extremities: No cyanosis, Other (1 + bilateral LE pitting edema) DIAGNOSIS/ASSESSMENT Assessment & Plan ENMA vs CKD - Cardiorenal Baseline Creat in Jun 2021 2.1 ; Creat trending down Baseline renal function unavailable . Renal US unremarkable Maintain fluid balance. Strict I/O , daily weight , supportive care, avoid Nephrotoxins HyperKalemia - Mild , give Kayexalate x1 Acute Resp Failure - 2/2 CHF - Increase in O2 (Home 02 2 lts ) , Cardiology managing Abnormal CxR - Stable diffuse infiltrate with suspected partial bilateral lower lobe consolidation. Right small and moderate left pleural effusions- s/p Lt thoracentesis with removal 0.7 L of fluid today Atrial fibrillation - per cardiology SSS, tachy-chang syndrome with significant pause. S/p single-chamber per manent pacemaker implantation recently Valvular heart disease; echo with mild to moderate and mild to moderate TR. Estimated PAP 70-75 mmHg. Cardiomyopathy; LVEF 45% with global hypokinesis of the LV Dementia Hypertension, labile- stable currently COMMENT/RELEVANT DATA Meds Current Medications Medications (Trade) Dose Ordered Sig/Tor Start Time Stop Time Status Last Admin Dose Admin Acetaminophen (Tylenol) 650 mg PRN Q6HRS PRN 07/26/21 01:45 07/31/21 22:00 650 MG Albuterol Sulfate (Ventolin Neb Soln) 2.5 mg PRN Q4HRS PRN 07/26/21 12:30 07/28/21 11:36 2.5 MG Amlodipine Besylate (Norvasc) 10 mg DAILY 07/25/21 17:00 08/01/21 08:11 10 MG Apixaban (Eliquis) 2.5 mg BID 08/01/21 09:00 08/01/21 08:11 2.5 MG Ascorbic Acid (Vitamin C) 500 mg DAILY 07/26/21 09:00 08/01/21 08:11 500 MG Aspirin (Ecotrin) 81 mg DAILYWBKFT 07/25/21 17:00 08/01/21 08:10 81 MG Azithromycin (Zithromax) 250 mg DAILY 07/25/21 19:00 07/28/21 09:01 DC 07/28/21 09:19 250 MG Azithromycin 500 mg/Sodium Chloride 250 ml @ 250 mls/hr 1X ONCE 07/24/21 19:00 07/24/21 19:59 DC 07/24/21 19:48 250 MLS/HR Cefdinir (Omnicef) 300 mg QHS 07/31/21 21:00 08/01/21 01:15 300 MG Ceftriaxone Sodium (Rocephin) 1 gm Q24H 07/25/21 20:00 07/31/21 14:00 DC 07/30/21 21:21 1 GM Citalopram Hydrobromide (CeleXA) 10 mg DAILY 07/25/21 17:00 08/01/21 08:11 10 MG Docusate Sodium (Colace) 100 mg BID 07/25/21 21:00 08/01/21 08:11 100 MG Fentanyl Citrate (Fentanyl 2ml Vial) 25 mcg PRN Q3HRS PRN 07/26/21 02:30 07/27/21 19:35 25 MCG Furosemide (Lasix) 40 mg 1X ONCE 07/28/21 12:00 07/28/21 12:01 DC 07/28/21 12:23 40 MG Info (Anti-Coagulation Monitoring By Pharmacy) 1 each PRN DAILY PRN 07/29/21 11:15 07/29/21 11:06 1 EACH Lactobacillus Rhamnosus (Culturelle) 1 cap BID 07/26/21 21:00 08/01/21 08:11 1 CAP Levothyroxine Sodium (Synthroid) 100 mcg DAILY07 07/26/21 07:00 08/01/21 06:08 100 MCG Methylprednisolone Sodium Succinate (SOLU-Medrol 40MG VIAL) 40 mg Q12HR 07/28/21 12:30 08/01/21 08:12 40 MG Metoprolol Tartrate (Lopressor) 25 mg BID 07/25/21 21:00 08/01/21 08:12 25 MG Morphine Sulfate (Morphine Sulfate) 1 mg 1X ONCE 07/30/21 10:15 07/30/21 10:16 DC 07/30/21 10:19 1 MG Multivitamins (Thera M Plus) 1 tab DAILY 07/26/21 09:00 08/01/21 08:10 1 TAB Ondansetron HCl (Zofran) 4 mg PRN Q4HRS PRN 07/25/21 20:30 07/31/21 21:46 4 MG Pantoprazole Sodium (Protonix) 40 mg DAILYAC 07/26/21 07:30 08/01/21 08:11 40 MG Sodium Polystyrene Sulfonate (Kayexalate) 15 gm 1X ONCE 07/29/21 10:00 07/29/21 10:01 DC 07/29/21 10:36 15 GM Sodium Chloride (Saline Mist Nasal) 1 david PRN Q1HR PRN 07/30/21 18:00 Temazepam (Restoril) 15 mg PRN QHS PRN 07/30/21 18:00 07/30/21 20:26 15 MG Lab Laboratory Tests Test 07/31/21 09:10 08/01/21 02:30 Body Fluid Source Pleural Body Fluid Color Yellow Body Fluid Clarity Clear Body Fluid pH 7.19 Body Fluid Nucleated Cells 142 /cmm (Not Established) Body Fluid Mononuclear WBCs (%) 94 % Body Fluid Polymorphonuclear Cells 6 % Body Fluid Total RBCs Counted 61 /cmm (Not Established) Sodium Level 140 mmol/L (136-145) Potassium Level 5.4 mmol/L (3.5-5.1) Chloride Level 99 mmol/L (98-107) Carbon Dioxide Level 37 mmol/L (21-32) Anion Gap 4 (6-14) Blood Urea Nitrogen 52 mg/dL (7-20) Creatinine 1.9 mg/dL (0.6-1.0) Estimated GFR (Cockcroft-Gault) 24.9 Glucose Level 136 mg/dL (70-99) Calcium Level 8.3 mg/dL (8.5-10.1) Results All relevant outside records, renal labs, imaging studies, telemetry/EKG's were reviewed. Justicifation of Admission Dx: Justifications for Admission: Justification of Admission Dx: Yes RITA KIRAN MD Aug 01, 2021 09:11
[2021-08-01] MEDS ORDERED: SODIUM POLYSTYRENE SULFON/SORB 15 GM/60 ML ORAL.SUSP. PO ONE (09:15)
[2021-08-01] MEDS: SODIUM CHLORIDE 0.65% NASAL SPRAY 45ML BOTTLE. NS PRN (09:47)
[2021-08-01 11:00] VITALS: BP 164/89
--- NOTE | 2021-08-01 13:28 | PDOC ---
[employer] PROGRESS NOTE Date of Service DOS: DATE: 08/01/21 TIME: 13:26 Chief Complaint Chief Complaint Multifactorial respiratory failure with pneumonia and CHF Appendectomy Cholecystectomy Hip replacement Pacemaker Tonsillectomy Left arm clot removed Colon resection Previous tobacco abuse with probable COPD Chronic anticoagulation GERD Hypothyroidism History of Present Illness History of Present Illness 08/01 Evaluated and examined at bedside. Underwent thoracentesis yesterday tolerated well. Notable amount of agitation today. Still on 8 L nasal cannula. Continue to wean O2 as tolerated. Continue other treatments otherwise. Discussed with bedside RN. 07/31/2021 Patient seen and examined Discussed with RN Chart reviewed She is going for thoracentesis today 07/30/2021 Patient seen and examined twice this morning On first visit she seemed to be kind of plateaued but was on 8 L of oxygen still and very weak The nurse then call me back because the patient became more confused weak coughing and hypoxic The repeat chest x-ray was read as stable effusion but by my eye the left side is larger. I called Dr. Meier he agrees were going to order a thoracentesis but we will need to hold her Eliquis for 1 day first Chart reviewed Discussed with RN 07/29/2021 Patient seen and examined Discussed with RN Chart reviewed Patient is resting with no apparent distress Has O2 per nasal cannula at 8 L Potassium is up to 6 today 07/28/2021 Patient seen and examined Has 2 family members present one is her son the other is his they seem to be good support for her Discussed with RN Chart reviewed 07/27/2021 Patient seen and examined at bedside this morning Patient states she "still is not breathing well" Discussed with RN RN states patient had a rapid response yesterday Chart reviewed 07/26/2021 Patient seen and examined Discussed with RN Chart reviewed Vitals/I&O Vitals/I&O: Vital Signs Date Time Temp Pulse Resp B/P (MAP) Pulse Ox O2 Delivery O2 Flow Rate FiO2 08/01/21 11:00 98.2 79 25 164/89 (114) 98 98.2 08/01/21 08:00 Nasal Cannula 8.0 I & O 07/31/21 07/31/21 08/01/21 15:00 23:00 07:00 Intake Total 120 ml Output Total 700 ml 275 ml Balance -700 ml 120 ml -275 ml Physical Exam General: mild distress Heart: Normal S1, Normal S2, Other (ESM aortic) Lungs: Wheezing, Crackles, Other (Slight wheeze and crackles but better than yesterday a little pursed lipped breathing) Abdomen: Normal bowel sounds, Soft, No tenderness, No hepatosplenomegaly, No masses Extremities: No clubbing, No cyanosis, No edema, Normal pulses, No tenderness/swelling Skin: No rashes Labs Labs: Laboratory Tests Test 08/01/21 02:30 Sodium Level 140 mmol/L (136-145) Potassium Level 5.4 mmol/L (3.5-5.1) Chloride Level 99 mmol/L (98-107) Carbon Dioxide Level 37 mmol/L (21-32) Anion Gap 4 (6-14) Blood Urea Nitrogen 52 mg/dL (7-20) Creatinine 1.9 mg/dL (0.6-1.0) Estimated GFR (Cockcroft-Gault) 24.9 Glucose Level 136 mg/dL (70-99) Calcium Level 8.3 mg/dL (8.5-10.1) Assessment and Plan Assessmemt and Plan Problems Medical Problems: (1) CHF (congestive heart failure) Status: Acute (2) Chronic respiratory failure with hypoxia Status: Acute (3) CKD (chronic kidney disease) Status: Acute (4) Dyspnea Status: Acute (5) Hyperkalemia Status: Acute (6) Pneumonia Status: Acute Comment Review of Relevant I have reviewed the following items yuly (where applicable) has been applied. Medications: Current Medications Medications (Trade) Dose Ordered Sig/Tor Route PRN Reason Start Time Stop Time Status Last Admin Dose Admin Apixaban (Eliquis) 2.5 mg BID PO 08/01/21 09:00 08/01/21 08:11 Cefdinir (Omnicef) 300 mg QHS PO 07/31/21 21:00 08/01/21 01:15 Sodium Polystyrene Sulfonate (Kayexalate) 15 gm 1X ONCE PO 08/01/21 09:15 08/01/21 09:16 DC 08/01/21 09:49 Justifications for Admission Other Justification PAUL PHOENIX MD Aug 01, 2021 13:28
[2021-08-01 15:00] VITALS: BP 145/79
--- NOTE | 2021-08-01 18:11 | PDOC ---
PROGRESS NOTES Date of Service: DATE: 08/01/21 TIME: 18:09 Subjective Subjective s/p thoracentesis, still needing 8L O2 Objective Objective Vital Signs Date Time Temp Pulse Resp B/P (MAP) Pulse Ox O2 Delivery O2 Flow Rate FiO2 08/01/21 15:00 98.5 80 20 145/79 (101) 96 98.5 08/01/21 08:00 Nasal Cannula 8.0 Intake and Output 08/01/21 07:00 Intake Total 120 ml Output Total 975 ml Balance -855 ml Intake Oral 120 ml Output Urine Total 275 ml Drainage Total 700 ml # Voids 2 Physical Exam Abdomen: Normal bowel sounds, Soft, No tenderness, No hepatosplenomegaly, No masses Heart: Normal S1, Normal S2, Other (ESM aortic) Extremities: No clubbing, No cyanosis, No edema, Normal pulses, No tenderness/swelling General: mild distress HEENT: Atraumatic, Mucous membr. moist/pink Lungs: Other (bilat rhonchi) Neuro: Normal speech Psych/Mental Status: Mental status NL, Mood NL Skin: No rashes Diagnosis RENAL FAILURE: Chronic (CKD stage IV) Assessment Assessment 1 Acute on chronic systolic HF: Improved. s/p thoracentesis for pleural effusion. Continue current medical regimen. 2. ENMA with hyperkalemia: nephrology following 3. recent PE 4. Valvular heart disease; echo with mild to moderate and mild to moderate TR. Estimated PAP 70-75 mmHg. 5. Cardiomyopathy; LVEF 45% with global hypokinesis of the LV 6. Dementia 7. Hypertension, labile episodes 8. SSS, tachy-chang syndrome: S/P PPM biotronik 9. Severe pulmonary HTN 10. Persistent AFIB: rate controlled with intermittent pacing. Continue Eliquis for stroke prophylaxis. 11. PPM in situ: on 07/03/2021 left chest incision looks good Plan Plan of Care Problems Medical Problems: (1) CHF (congestive heart failure) Status: Acute (2) Chronic respiratory failure with hypoxia Status: Acute (3) CKD (chronic kidney disease) Status: Acute (4) Dyspnea Status: Acute (5) Hyperkalemia Status: Acute (6) Pneumonia Status: Acute Comment Review of Relevant I have reviewed the following items yuly (where applicable) has been applied. Labs Laboratory Tests Test 08/01/21 02:30 Sodium Level 140 mmol/L (136-145) Potassium Level 5.4 mmol/L (3.5-5.1) Chloride Level 99 mmol/L (98-107) Carbon Dioxide Level 37 mmol/L (21-32) Anion Gap 4 (6-14) Blood Urea Nitrogen 52 mg/dL (7-20) Creatinine 1.9 mg/dL (0.6-1.0) Estimated GFR (Cockcroft-Gault) 24.9 Glucose Level 136 mg/dL (70-99) Calcium Level 8.3 mg/dL (8.5-10.1) Microbiology 07/31/21 Gram Stain - Final, Resulted 07/31/21 Aerobic and Anaerobic Culture - Preliminary, Resulted Medications Current Medications Apixaban (Eliquis) 2.5 mg BID PO Last administered on 08/01/21at 08:11; Start 08/01/21 at 09:00 Cefdinir (Omnicef) 300 mg QHS PO Last administered on 08/01/21at 01:15; Start 07/31/21 at 21:00 Sodium Polystyrene Sulfonate (Kayexalate) 15 gm 1X ONCE PO Last administered on 08/01/21at 09:49; Start 08/01/21 at 09:15; Stop 08/01/21 at 09:16; Status DC Vitals/I & O Vital Sign - Last 24 Hours 07/31/21 07/31/21 07/31/21 08/01/21 19:00 21:30 23:00 01:13 Temp 98.0 97.4 98.0 97.4 Pulse 73 78 78 Resp 18 18 B/P (MAP) 144/77 (99) 141/74 (96) 141/74 Pulse Ox 96 93 O2 Delivery Nasal Cannula O2 Flow Rate 8.0 08/01/21 08/01/21 08/01/21 08/01/21 03:00 07:00 08:00 08:11 Temp 97.4 97.8 97.4 97.8 Pulse 67 73 67 Resp 16 26 B/P (MAP) 153/86 (108) 175/86 (115) 153/86 Pulse Ox 94 94 O2 Delivery Nasal Cannula O2 Flow Rate 8.0 08/01/21 08/01/21 08/01/21 08:12 11:00 15:00 Temp 98.2 98.5 98.2 98.5 Pulse 67 79 80 Resp 25 20 B/P (MAP) 153/86 164/89 (114) 145/79 (101) Pulse Ox 98 96 Intake and Output 07/31/21 07/31/21 08/01/21 15:00 23:00 07:00 Intake Total 120 ml Output Total 700 ml 275 ml Balance -700 ml 120 ml -275 ml FELIPE ARBOLEDA MD Aug 01, 2021 18:10
[2021-08-01 19:00] VITALS: BP 156/70
[2021-08-01] MEDS: ONDANSETRON PF 4 MG/2 ML VIAL. IVP PRN (22:39)
[2021-08-01 22:47] VITALS: BP 137/69
[2021-08-02 02:46] VITALS: BP 149/68
[2021-08-02] MEDS: LEVOTHYROXINE 100 MCG TABLET PO SCH (06:15)
[2021-08-02 07:00] VITALS: BP 150/76
[2021-08-02] MEDS: SODIUM CHLORIDE 0.65% NASAL SPRAY 45ML BOTTLE. NS PRN (08:30)
[2021-08-02] MEDS: methylPREDNISolone SOD SUCC PF 40 MG/ML VIAL. IV SCH ×2 (08:36→20:36)
[2021-08-02] MEDS: APIXABAN 2.5 MG TABLET. PO SCH ×2 (08:36→20:36)
[2021-08-02] MEDS: LACTOBACILLUS RHAMNOSUS GG 1 CAPSULE. PO SCH ×2 (08:37→20:36)
[2021-08-02] MEDS: MULTIVITAMIN with MINERAL TABLET. PO SCH (08:37)
[2021-08-02] MEDS: DOCUSATE SODIUM 100 MG CAPSULE. PO SCH ×2 (08:37→20:36)
[2021-08-02] MEDS: CITALOPRAM 10 MG TABLET. PO SCH (08:37)
[2021-08-02] MEDS: ASCORBIC ACID 500 MG TABLET PO SCH (08:37)
[2021-08-02] MEDS: ASPIRIN ENTERIC COATED 81 MG TABLET.DR. PO SCH (08:37)
[2021-08-02] MEDS: PANTOPRAZOLE 40 MG TABLET.DR. PO SCH (08:38)
[2021-08-02] MEDS: METOPROLOL TART IMMED RELEASE 25 MG TABLET. PO SCH ×2 (08:38→20:37)
--- NOTE | 2021-08-02 09:06 | PDOC ---
DATE OF SERVICE DATE: 08/02/21 TIME: 09:03 SUBJECTIVE ROS Resting comforatbly . No N/V No concerns voiced by nursing OBJECTIVE Vital Signs Vital Signs Date Time Temp Pulse Resp B/P (MAP) Pulse Ox O2 Delivery O2 Flow Rate FiO2 08/02/21 08:42 92 Nasal Cannula 4.0 08/02/21 08:38 75 149/68 08/02/21 07:00 97.8 18 97.8 I & 0 Intake and Output 08/02/21 07:00 # Voids 5 PHYSICAL EXAM Physical Exam General: No acute distress HEENT: Mucous membr. moist/pink, On O2 by NC Neck Supple Abd soft, NT Lungs CTA, non labored CV S1S2 Skin: No breakdown, No significant lesion Neuro: Grossly normal. Has Dx of Dementia Psych/Mental Status: Mental status NL, Mood NL Extremities: No cyanosis, Other (1 + bilateral LE pitting edema) DIAGNOSIS/ASSESSMENT Assessment & Plan ENMA vs CKD - Cardiorenal Baseline Creat in Jun 2021 2.1 ; Creat trending down Baseline renal function unavailable . Renal US unremarkable Maintain fluid balance. Strict I/O , daily weight , supportive care, avoid Nephrotoxins HyperKalemia - Mild 08/01 , given Kayexalate x1 Acute Resp Failure - 07/10 CHF - (Home 02 2 lts ) , O2 requirement down (as charted) Abnormal CxR - Stable diffuse infiltrate with suspected partial bilateral lower lobe consolidation. Right small and moderate left pleural effusions- s/p Lt thoracentesis with removal 0.7 L of fluid today Atrial fibrillation - per cardiology SSS, tachy-chang syndrome with significant pause. S/p single-chamber permanent pacemaker implantation recently Valvular heart disease; echo with mild to moderate and mild to moderate TR. Estimated PAP 70-75 mmHg. Cardiomyopathy; LVEF 45% with global hypokinesis of the LV Dementia Hypertension, labile- stable currently COMMENT/RELEVANT DATA Meds Current Medications Medications (Trade) Dose Ordered Sig/Tor Start Time Stop Time Status Last Admin Dose Admin Acetaminophen (Tylenol) 650 mg PRN Q6HRS PRN 07/26/21 01:45 07/31/21 22:00 650 MG Albuterol Sulfate (Ventolin Neb Soln) 2.5 mg PRN Q4HRS PRN 07/26/21 12:30 07/28/21 11:36 2.5 MG Amlodipine Besylate (Norvasc) 10 mg DAILY 07/25/21 17:00 08/02/21 08:37 10 MG Apixaban (Eliquis) 2.5 mg BID 08/01/21 09:00 08/02/21 08:36 2.5 MG Ascorbic Acid (Vitamin C) 500 mg DAILY 07/26/21 09:00 08/02/21 08:37 500 MG Aspirin (Ecotrin) 81 mg [id number] 07/25/21 17:00 08/02/21 08:37 81 MG Azithromycin (Zithromax) 250 mg DAILY 07/25/21 19:00 07/28/21 09:01 DC 07/28/21 09:19 250 MG Azithromycin 500 mg/Sodium Chloride 250 ml @ 250 mls/hr 1X ONCE 07/24/21 19:00 07/24/21 19:59 DC 07/24/21 19:48 250 MLS/HR Cefdinir (Omnicef) 300 mg QHS 07/31/21 21:00 08/01/21 21:59 300 MG Ceftriaxone Sodium (Rocephin) 1 gm Q24H 07/25/21 20:00 07/31/21 14:00 DC 07/30/21 21:21 1 GM Citalopram Hydrobromide (CeleXA) 10 mg DAILY 07/25/21 17:00 08/02/21 08:37 10 MG Docusate Sodium (Colace) 100 mg BID 07/25/21 21:00 08/02/21 08:37 100 MG Fentanyl Citrate (Fentanyl 2ml Vial) 25 mcg PRN Q3HRS PRN 07/26/21 02:30 07/27/21 19:35 25 MCG Furosemide (Lasix) 40 mg 1X ONCE 07/28/21 12:00 07/28/21 12:01 DC 07/28/21 12:23 40 MG Info (Anti-Coagulation Monitoring By Pharmacy) 1 each PRN DAILY PRN 07/29/21 11:15 07/29/21 11:06 1 EACH Lactobacillus Rhamnosus (Culturelle) 1 cap BID 07/26/21 21:00 08/02/21 08:37 1 CAP Levothyroxine Sodium (Synthroid) 100 mcg DAILY07 07/26/21 07:00 08/02/21 06:15 100 MCG Methylprednisolone Sodium Succinate (SOLU-Medrol 40MG VIAL) 40 mg Q12HR 07/28/21 12:30 08/02/21 08:36 40 MG Metoprolol Tartrate (Lopressor) 25 mg BID 07/25/21 21:00 08/02/21 08:38 25 MG Morphine Sulfate (Morphine Sulfate) 1 mg 1X ONCE 07/30/21 10:15 07/30/21 10:16 DC 07/30/21 10:19 1 MG Multivitamins (Thera M Plus) 1 tab DAILY 07/26/21 09:00 08/02/21 08:37 1 TAB Ondansetron HCl (Zofran) 4 mg PRN Q4HRS PRN 07/25/21 20:30 08/01/21 22:39 4 MG Pantoprazole Sodium (Protonix) 40 mg DAILYAC 07/26/21 07:30 08/02/21 08:38 40 MG Sodium Polystyrene Sulfonate (Kayexalate) 15 gm 1X ONCE 08/01/21 09:15 08/01/21 09:16 DC 08/01/21 09:49 15 GM Sodium Chloride (Saline Mist Nasal) 1 david PRN Q1HR PRN 07/30/21 18:00 08/01/21 09:47 1 DAVID Temazepam (Restoril) 15 mg PRN QHS PRN 07/30/21 18:00 07/30/21 20:26 15 MG Results All relevant outside records, renal labs, imaging studies, telemetry/EKG's were reviewed. Justicifation of Admission Dx: Justifications for Admission: Justification of Admission Dx: Yes RITA KIRAN MD Aug 02, 2021 09:06
--- NOTE | 2021-08-02 10:22 | NUR ---
Wound Care Wound Type/Assessment: Follow up management of coccyx stage III pressure ulcer. Wound photo and measurements present in chart. Wound cleansed: base is pink and moist with minimal slough. Margins pink and intact. No other wounds noted on head to toe inspection. Pt c/o heartburn and is belching. Mario RN notified Treatment Recommendations/Plan: Coccyx: Cleanse and pat dry. Aply small amount of nnamdi collagen moistened with saline, cover with single layer of xeroform, covered with foam. Change every 2-3 days Education provided: Educated to turn side to side to help heal wound. pt declined to be repositioned at this time Offloading surface/device: pt is able to turn independently, requires cueing Recommended Referrals/Tests: NA Discharge Recommendations for dressings: As above
[2021-08-02] MEDS ORDERED: LIDO:MAALOX 1:1 20 ML SINGLE DOSE. PO PRN (10:45)
[2021-08-02 11:00] VITALS: BP 151/79
[2021-08-02] MEDS: ALBUTEROL SULFATE 2.5 MG/3 ML NEBU. NEB PRN (11:04)
--- NOTE | 2021-08-02 12:07 | PDOC ---
PROGRESS NOTES Date of Service: DATE: 08/02/21 TIME: 12:06 Subjective Subjective c/o heartburn when she was eating, on 4L O2/NC Objective Objective Vital Signs Date Time Temp Pulse Resp B/P (MAP) Pulse Ox O2 Delivery O2 Flow Rate FiO2 08/02/21 11:06 93 Nasal Cannula 4.0 08/02/21 08:38 75 149/68 08/02/21 07:00 97.8 18 97.8 Intake and Output 08/02/21 07:00 # Voids 5 Physical Exam Abdomen: Normal bowel sounds, Soft, No tenderness, No hepatosplenomegaly, No masses Heart: Normal S1, Normal S2, Other (ESM aortic) Extremities: No clubbing, No cyanosis, No edema, Normal pulses, No tenderness/swelling General: mild distress HEENT: Atraumatic, Mucous membr. moist/pink Lungs: Other (bilat rhonchi) Neuro: Normal speech Psych/Mental Status: Mental status NL, Mood NL Skin: No rashes Diagnosis RENAL FAILURE: Chronic (CKD stage IV) Assessment Assessment 1 Acute on chronic systolic HF: Improved. s/p thoracentesis for pleural effusion. Continue current medical regimen. 2. ENMA with hyperkalemia: nephrology following 3. Recent PE 4. Valvular heart disease; echo with mild to moderate and mild to moderate TR. Estimated PAP 70-75 mmHg. 5. Cardiomyopathy; LVEF 45% with global hypokinesis of the LV 6. Dementia 7. Hypertension, labile episodes 8. SSS, tachy-chang syndrome: S/P PPM clinically stable 9. Severe pulmonary HTN 10. Persistent AFIB: rate controlled with intermittent pacing. Continue Eliquis for stroke prophylaxis. 11. PPM in situ: on 07/03/2021 left chest incision looks good Plan Plan of Care Problems Medical Problems: (1) CHF (congestive heart failure) Status: Acute (2) Chronic respiratory failure with hypoxia Status: Acute (3) CKD (chronic kidney disease) Status: Acute (4) Dyspnea Status: Acute (5) Hyperkalemia Status: Acute (6) Pneumonia Status: Acute Comment Review of Relevant I have reviewed the following items yuly (where applicable) has been applied. Labs Laboratory Tests Test 08/02/21 11:05 Troponin I High Sensitivity 28 ng/L (4-50) Microbiology 07/31/21 Gram Stain - Final, Resulted 07/31/21 Aerobic and Anaerobic Culture - Preliminary, Resulted Medications Current Medications Lorazepam (Ativan Intensol) 2 mg PRN Q4HRS PRN SL ANXIETY / AGITATION; Start 08/02/21 at 11:15 Multi-Ingredient Mouthwash/Gargle (Gi Cocktail) 20 ml PRN QID PRN PO CHEST PAIN Last administered on 08/02/21at 10:42; Start 08/02/21 at 10:45 Vitals/I & O Vital Sign - Last 24 Hours 08/01/21 08/01/21 08/01/21 08/01/21 15:00 19:00 22:00 22:00 Temp 98.5 97.7 98.5 97.7 Pulse 80 67 64 Resp 20 17 B/P (MAP) 145/79 (101) 156/70 (98) 137/69 Pulse Ox 96 95 O2 Delivery Nasal Cannula Nasal Cannula O2 Flow Rate 10.0 5.0 08/01/21 08/02/21 08/02/21 08/02/21 22:47 02:46 07:00 08:00 Temp 98.1 97.8 97.8 98.1 97.8 97.8 Pulse 63 75 75 Resp 17 15 18 B/P (MAP) 137/69 (91) 149/68 (95) 150/76 (100) Pulse Ox 98 96 91 O2 Delivery Nasal Cannula Nasal Cannula Nasal Cannula Nasal Cannula O2 Flow Rate 5.0 5.0 4.0 4.0 08/02/21 08/02/21 08/02/21 08/02/21 08:37 08:38 08:42 11:06 Pulse 75 75 B/P (MAP) 150/76 149/68 Pulse Ox 92 93 O2 Delivery Nasal Cannula Nasal Cannula O2 Flow Rate 4.0 4.0 FELIPE ARBOLEDA MD Aug 02, 2021 12:07
--- NOTE | 2021-08-02 12:09 | PATHOLOGY ---
Note [facility] Accession Number: [id number] TESTS RESULT FLAG UNITS REF RANGE LAB Clinician Provided Cytology Information No. of containers..01 Other (Miscellaneous) Source: LEFT PLEURAL FLUID DIAGNOSIS: LEFT PLEURAL FLUID NEGATIVE FOR MALIGNANT CELLS. FOCALLY REACTIVE MESOTHELIAL CELLS ARE PRESENT. THIS INTERPRETATION INCLUDES EVALUATION OF A CELL BLOCK. Signed out by: [address] Paniagua MD, Pathologist NPI- [id number] Performed by: Tisha Darnell, Fruit Picker ([facility]) Gross description: 01 35ML, YELLOW, CLEAR /LCS 08/01/2021 1637 Local FLAG LEGEND: L-Low Normal,H-High Normal,LL-Alert Low,HH-Alert High <-Panic Low,>-Panic High,A-Abnormal,AA-Critical Abnormal Performed at: 01 [facility] [address] [place] [address] Carlos Aguilar MD, 02 [facility] [address] [place] [address] Rd Paniagua MD, Specimen Comment: A courtesy copy of this report has been sent to [phone], [phone] Specimen Comment: [id number], Specimen Comment: Report sent to , DR CHACON / DR YOAKAM Specimen Comment: A duplicate report has been generated due to demographic updates. Performed at: [address], [place], [place] [id number] MD Carlos Aguilar MD Phone: [phone]
[2021-08-02] MEDS: LORazepam INTENSOL 2 MG/ML ORAL.CONC SL PRN (12:12)
[2021-08-02] MEDS ORDERED: BARIUM SULFATE 40% (APPLE) 148 GM PWD. PO ONE (12:30)
--- NOTE | 2021-08-02 12:46 | PDOC ---
[employer] PROGRESS NOTE Date of Service DOS: DATE: 08/02/21 TIME: 12:44 Chief Complaint Chief Complaint Multifactorial respiratory failure with pneumonia and CHF Appendectomy Cholecystectomy Hip replacement Pacemaker Tonsillectomy Left arm clot removed Colon resection Previous tobacco abuse with probable COPD Chronic anticoagulation GERD Hypothyroidism History of Present Illness History of Present Illness 08/02 Patient evaluated examined bedside. Was contacted by nurse patient was having a nosebleed burning chest pain. Patient was eating at the time symptoms started. Patient says it feels like previous heartburn. Also says almost feels like so mething stuck in her chest. Check chest x-ray. Basic labs. Epistaxis likely due to dry air oxygen was at humidified. Patient on 4 L nasal cannula. 08/01 Evaluated and examined at bedside. Underwent thoracentesis yesterday tolerated well. Notable amount of agitation today. Still on 8 L nasal cannula. Continue to wean O2 as tolerated. Continue other treatments otherwise. Discussed with bedside RN. 07/31/2021 Patient seen and examined Discussed with RN Chart reviewed She is going for thoracentesis today 07/30/2021 Patient seen and examined twice this morning On first visit she seemed to be kind of plateaued but was on 8 L of oxygen still and very weak The nurse then call me back because the patient became more confused weak coughing and hypoxic The repeat chest x-ray was read as stable effusion but by my eye the left side is larger. I called Dr. Meier he agrees were going to order a thoracentesis but we will need to hold her Eliquis for 1 day first Chart reviewed Discussed with RN 07/29/2021 Patient seen and examined Discussed with RN Chart reviewed Patient is resting with no apparent distress Has O2 per nasal cannula at 8 L Potassium is up to 6 today 07/28/2021 Patient seen and examined Has 2 family members present one is her son the other is his they seem to be good support for her Discussed with RN Chart reviewed 07/27/2021 Patient seen and examined at bedside this morning Patient states she "still is not breathing well" Discussed with RN RN states patient had a rapid response yesterday Chart reviewed 07/26/2021 Patient seen and examined Discussed with RN Chart reviewed Vitals/I&O Vitals/I&O: Vital Signs Date Time Temp Pulse Resp B/P (MAP) Pulse Ox O2 Delivery O2 Flow Rate FiO2 08/02/21 11:06 93 Nasal Cannula 4.0 08/02/21 11:00 97.7 73 18 151/79 (103) 97.7 Physical Exam General: Alert, Oriented X3, Cooperative, mild distress Heart: Regular rate, Normal S1, Normal S2, Other (ESM aortic) Lungs: Wheezing, Crackles, Other (Slight wheeze and crackles but better than yesterday a little pursed lipped breathing) Abdomen: Normal bowel sounds, Soft, No tenderness, No hepatosplenomegaly, No masses Extremities: No clubbing, No cyanosis, No edema, Normal pulses, No tenderness/swelling Skin: No rashes Labs Labs: Laboratory Tests Test 08/02/21 11:05 Troponin I High Sensitivity 28 ng/L (4-50) Assessment and Plan Assessmemt and Plan Problems Medical Problems: (1) CHF (congestive heart failure) Status: Acute (2) Chronic respiratory failure with hypoxia Status: Acute (3) CKD (chronic kidney disease) Status: Acute (4) Dyspnea Status: Acute (5) Hyperkalemia Status: Acute (6) Pneumonia Status: Acute Comment Review of Relevant I have reviewed the following items yuly (where applicable) has been applied. Medications: Current Medications Medications (Trade) Dose Ordered Sig/Tor Route PRN Reason Start Time Stop Time Status Last Admin Dose Admin Multi-Ingredient Mouthwash/Gargle (Gi Cocktail) 20 ml PRN QID PRN PO CHEST PAIN 08/02/21 10:45 08/02/21 10:42 Lorazepam (Ativan Intensol) 2 mg PRN Q4HRS PRN SL ANXIETY / AGITATION 08/02/21 11:15 08/02/21 12:12 Justifications for Admission Other Justification PAUL PHOENIX MD Aug 02, 2021 12:46
--- NOTE | 2021-08-02 14:50 | RAD ---
EXAMINATION: DG VIDEO SWALLOW STUDY 08/02/2021 1:39 PM HISTORY: Coughing, dysphasia COMPARISON: None. TECHNIQUE: The patient was observed swallowing various consistencies of barium under intermittent flu oroscopy. FINDINGS: With initial trials of honey thick and thin barium there was no aspiration or penetration. Toward the end of the exam, there was deep penetration to the cords with both honey thick and thin barium on mu ltiple consecutive swallows suggesting fatiguing. No definite aspiration visualized. Mild residuals. No aspiration or penetration with soft solid consistency or nectar thick. Total fluoroscopic time: 4.4 minutes. 0 fluoroscopic images were saved. IMPRESSION: Deep penetration during multiple consecutive swallows with honey thick and thin barium. N o definite aspiration. Please see the speech pathologist's report for details. Electronically signed by: Christine Milligan MD (08/02/2021 2:47 PM) [id number]
[2021-08-02 15:00] VITALS: BP 145/77
--- NOTE | 2021-08-02 15:57 | RAD ---
EXAM: CHEST ONE VIEW. HISTORY: Shortness of breath, chest pain. COMPARISON: 07/31/2021. FINDINGS: A frontal view of the chest is obtained. A left-sided pacemaker has its lead in the right v entricle. There are small to moderate bilateral pleural effusions. Basilar infiltrates are consistent with atel ectasis or mild pulmonary edema. There is no pneumothorax. The heart is moderately enlarged. There ar e atherosclerotic calcifications of the aorta. IMPRESSION: 1. Mildly increased bilateral small to moderate pleural effusions. Basilar atelectasis and mild pulmo nary edema. Electronically signed by: Palak Hinkle MD (08/02/2021 3:54 PM) [facility]
[2021-08-02 19:00] VITALS: BP 141/69
[2021-08-02] MEDS: TEMAZEPAM 15 MG CAPSULE PO PRN (20:36)
[2021-08-02] MEDS: CEFDINIR 300 MG CAPSULE PO SCH (20:36)
[2021-08-02 23:00] VITALS: BP 150/85
[2021-08-03 03:13] VITALS: BP 115/81
[2021-08-03] MEDS: LEVOTHYROXINE 100 MCG TABLET PO SCH (05:55)
[2021-08-03 07:00] VITALS: BP 141/83
[2021-08-03] MEDS: PANTOPRAZOLE 40 MG TABLET.DR. PO SCH (07:35)
[2021-08-03] MEDS: ASCORBIC ACID 500 MG TABLET PO SCH (08:09)
[2021-08-03] MEDS: ASPIRIN ENTERIC COATED 81 MG TABLET.DR. PO SCH (08:09)
[2021-08-03] MEDS: LACTOBACILLUS RHAMNOSUS GG 1 CAPSULE. PO SCH ×2 (08:09→21:25)
[2021-08-03] MEDS: DOCUSATE SODIUM 100 MG CAPSULE. PO SCH ×2 (08:09→21:25)
[2021-08-03] MEDS: METOPROLOL TART IMMED RELEASE 25 MG TABLET. PO SCH ×2 (08:10→21:25)
[2021-08-03] MEDS: CITALOPRAM 10 MG TABLET. PO SCH (08:11)
[2021-08-03] MEDS: MULTIVITAMIN with MINERAL TABLET. PO SCH (08:11)
[2021-08-03] MEDS: methylPREDNISolone SOD SUCC PF 40 MG/ML VIAL. IV SCH ×2 (08:11→21:24)
[2021-08-03] MEDS: APIXABAN 2.5 MG TABLET. PO SCH ×2 (08:11→21:32)
[2021-08-03 11:00] VITALS: BP 144/62
[2021-08-03] MEDS: ALBUTEROL SULFATE 2.5 MG/3 ML NEBU. NEB PRN (11:13)
--- NOTE | 2021-08-03 12:12 | PDOC ---
[facility] [facility] PROGRESS NOTE Date of Service DOS: DATE: 08/03/21 TIME: 12:11 Chief Complaint Chief Complaint Multifactorial respiratory failure with pneumonia and CHF Appendectomy Cholecystectomy Hip replacement Pacemaker Tonsillectomy Left arm clot removed Colon resection Previous tobacco abuse with probable COPD Chronic anticoagulation GERD Hypothyroidism History of Present Illness History of Present Illness 08/03 Evaluate examined at bedside heartburn improved video swallow done yesterday. Continue current otherwise. Discussed with bedside RN. 08/02 Patient evaluated examined bedside. Was contacted by nurse patient was having a nosebleed burning chest pain. Patient was eating at the time symptoms started. Patient says it feels like previous heartburn. Also says almost feels like something stuck in her chest. Check chest x-ray. Basic labs. Epistaxis likely due to dry air oxygen was at humidified. Patient on 4 L nasal cannula. 08/01 Evaluated and examined at bedside. Underwent thoracentesis yesterday tolerated well. Notable amount of agitation today. Still on 8 L nasal cannula. Continue to wean O2 as tolerated. Continue other treatments otherwise. Discussed with bedside RN. 07/31/2021 Patient seen and examined Discussed with RN Chart reviewed She is going for thoracentesis today 07/30/2021 Patient seen and examined twice this morning On first visit she seemed to be kind of plateaued but was on 8 L of oxygen still and very weak The nurse then call me back because the patient became more confused weak coughing and hypoxic The repeat chest x-ray was read as stable effusion but by my eye the left side is larger. I called Dr. Meier he agrees were going to order a thoracentesis but we will need to hold her Eliquis for 1 day first Chart reviewed Discussed with RN 07/29/2021 Patient seen and examined Discussed with RN Chart reviewed Patient is resting with no apparent distress Has O2 per nasal cannula at 8 L Potassium is up to 6 today 07/28/2021 Patient seen and examined Has 2 family members present one is her son the other is his they seem to be good support for her Discussed with RN Chart reviewed 07/27/2021 Patient seen and examined at bedside this morning Patient states she "still is not breathing well" Discussed with RN RN states patient had a rapid response yesterday Chart reviewed 07/26/2021 Patient seen and examined Discussed with RN Chart reviewed Vitals/I&O Vitals/I&O: Vital Signs Date Time Temp Pulse Resp B/P (MAP) Pulse Ox O2 Delivery O2 Flow Rate FiO2 08/03/21 11:17 92 NonRebreather Mask 15.0 08/03/21 11:00 98.0 67 22 144/62 (89) 98.0 I & O 08/02/21 08/02/21 08/03/21 15:00 23:00 07:00 Intake Total 200 ml 200 ml Output Total 250 ml Balance 200 ml -50 ml Physical Exam General: Alert, Oriented X3, Cooperative, mild distress Heart: Regular rate, Normal S1, Normal S2, Other (ESM aortic) Lungs: Wheezing, Crackles, Other (Slight wheeze and crackles but better than yesterday a little pursed lipped breathing) Abdomen: Normal bowel sounds, Soft, No tenderness, No hepatosplenomegaly, No masses Extremities: No clubbing, No cyanosis, No edema, Normal pulses, No tenderness/swelling Skin: No rashes Assessment and Plan Assessmemt and Plan Problems Medical Problems: (1) CHF (congestive heart failure) Status: Acute (2) Chronic respiratory failure with hypoxia Status: Acute (3) CKD (chronic kidney disease) Status: Acute (4) Dyspnea Status: Acute (5) Hyperkalemia Status: Acute (6) Pneumonia Status: Acute Comment Review of Relevant I have reviewed the following items yuly (where applicable) has been applied. Medications: Current Medications Medications (Trade) Dose Ordered Sig/Tor Route PRN Reason Start Time Stop Time Status Last Admin Dose Admin Barium Sulfate (Varibar Thin Liquid Apple) 148 gm 1X ONCE PO 08/02/21 12:30 08/02/21 12:31 DC 08/02/21 13:10 Justifications for Admission Other Justification PAUL PHOENIX MD Aug 03, 2021 12:12
--- NOTE | 2021-08-03 12:53 | PDOC ---
PROGRESS NOTES Date of Service DATE: 08/03/21 TIME: 12:50 Subjective Subjective Patient seen and examined Objective Objective Vital Signs Date Time Temp Pulse Resp B/P (MAP) Pulse Ox O2 Delivery O2 Flow Rate FiO2 08/03/21 11:17 92 NonRebreather Mask 15.0 08/03/21 11:00 98.0 67 22 144/62 (89) 98.0 Intake and Output 08/03/21 07:00 Intake Total 400 ml Output Total 250 ml Balance 150 ml Intake Oral 400 ml Output Urine Total 250 ml # Voids 3 Physical Exam Abdomen: Normal bowel sounds Heart: Regular rate General: No acute distress Lungs: Clear to auscultation Assessment Assessment Problems Medical Problems: (1) CHF (congestive heart failure) Status: Acute (2) Chronic respiratory failure with hypoxia Status: Acute (3) CKD (chronic kidney disease) Status: Acute (4) Dyspnea Status: Acute (5) Hyperkalemia Status: Acute (6) Pneumonia Status: Acute Patient seen and examinedAcute on chronic systolic HF: Improved. s/p thoracentesis for pleural effusion. Continue current medical regimen. ENMA with hyperkalemia: nephrology following Recent PE. Continue present treatment. Valvular heart disease; echo with mild to moderate and mild to moderate TR. Estimated PAP 70-75 mmHg. Cardiomyopathy; LVEF 45% with global hypokinesis of the LV Hypertension, improved but labile episodes SSS, tachy-chang syndrome: S/P PPM clinically stable Severe pulmonary HTN Persistent AFIB: rate controlled with intermittent pacing. Continue Eliquis for stroke prophylaxis. PPM in situ Comment Review of Relevant I have reviewed the following items yuly (where applicable) has been applied. Labs Laboratory Tests Test 08/02/21 11:05 Troponin I High Sensitivity 28 ng/L (4-50) Microbiology 07/31/21 Gram Stain - Final, Resulted 07/31/21 Aerobic and Anaerobic Culture - Preliminary, Resulted Medications Current Medications Ceftriaxone Sodium (Rocephin) 1 gm 1X ONCE IVP Last administered on 07/24/21at 19:54; Start 07/24/21 at 19:00; Stop 07/24/21 at 19:01; Status DC Azithromycin 500 mg/Sodium Chloride 250 ml @ 250 mls/hr 1X ONCE IV Last administered on 07/24/21at 19:48; Start 07/24/21 at 19:00; Stop 07/24/21 at 19:59; Status DC Furosemide (Lasix) 20 mg 1X ONCE IVP Last administered on 07/24/21at 19:53; Start 07/24/21 at 19:00; Stop 07/24/21 at 19:01; Status DC Apixaban (Eliquis) 2.5 mg BID PO Last administered on 07/30/21at 08:54; Start 07/24/21 at 21:00; Stop 07/30/21 at 11:15; Status DC Ondansetron HCl (Zofran) 4 mg 1X ONCE IVP Last administered on 07/24/21at 20:07; Start 07/24/21 at 20:15; Stop 07/24/21 at 20:16; Status DC Amlodipine Besylate (Norvasc) 10 mg DAILY PO Last administered on 08/03/21at 08:12; Start 07/25/21 at 17:00 Aspirin (Ecotrin) 81 mg DAILYWBKFT PO Last administered on 08/03/21at 08:09; S tart 07/25/21 at 17:00 Citalopram Hydrobromide (CeleXA) 10 mg DAILY PO Last administered on 08/03/21at 08:11; Start 07/25/21 at 17:00 Levothyroxine Sodium (Synthroid) 100 mcg DAILY07 PO Last administered on 08/03/21at 05:55; Start 07/26/21 at 07:00 Metoprolol Tartrate (Lopressor) 25 mg BID PO Last administered on 08/03/21at 08:10; Start 07/25/21 at 21:00 Pantoprazole Sodium (Protonix) 40 mg DAILYAC PO Last administered on 08/03/21at 07:35; Start 07/26/21 at 07:30 Ascorbic Acid (Vitamin C) 500 mg DAILY PO Last administered on 08/03/21at 08:09; Start 07/26/21 at 09:00 Multivitamins (Thera M Plus) 1 tab DAILY PO Last administered on 08/03/21at 08:11; Start 07/26/21 at 09:00 Ceftriaxone Sodium (Rocephin) 1 gm Q24H IVP Last administered on 07/30/21at 21:21; Start 07/25/21 at 20:00; Stop 07/31/21 at 14:00; Status DC Azithromycin (Zithromax) 250 mg DAILY PO Last administered on 07/28/21 09:19; Start 07/25/21 at 19:00; Stop 07/28/21 at 09:01; Status DC Docusate Sodium (Colace) 100 mg BID PO Last administered on 08/03/21 08:09; Start 07/25/21 at 21:00 Ondansetron HCl (Zofran) 4 mg PRN Q4HRS PRN IVP NAUSEA/VOMITING Last administered on 08/01/21at 22:39; Start 07/25/21 at 20:30 Acetaminophen (Tylenol) 650 mg PRN Q6HRS PRN PO MILD PAIN / TEMP > 100.3'F Last administered on 07/31/21 22:00; Start 07/26/21 at 01:45 Fentanyl Citrate (Fentanyl 2ml Vial) 25 mcg PRN Q3HRS PRN IVP SEVERE PAIN 7-10 Last administered on 07/27/21 19:35; Start 07/26/21 at 02:30 Albuterol Sulfate (Ventolin Neb Soln) 2.5 mg PRN Q4HRS PRN NEB SHORTNESS OF BREATH Last administered on 08/03/21at 11:13; Start 07/26/21 at 12:30 Furosemide (Lasix) 40 mg 1X ONCE IVP Last administered on 07/26/21at 16:45; Start 07/26/21 at 13:45; Stop 07/26/21 at 13:48; Status DC Lactobacillus Rhamnosus (Culturelle) 1 cap BID PO Last administered on 08/03/21at 08:09; Start 07/26/21 at 21:00 Furosemide (Lasix) 40 mg 1X ONCE IVP Last administered on 07/28/21 12:23; Start 07/28/21 at 12:00; Stop 07/28/21 at 12:01; Status DC Methylprednisolone Sodium Succinate (SOLU-Medrol 40MG VIAL) 40 mg Q12HR IV Last administered on 08/03/21at 08:11; Start 07/28/21 at 12:30 Sodium Polystyrene Sulfonate (Kayexalate) 15 gm 1X ONCE PO Last administered on 07/29/21at 10:36; Start 07/29/21 at 10:00; Stop 07/29/21 at 10:01; Status DC Info (Anti-Coagulation Monitoring By Pharmacy) 1 each PRN DAILY PRN MC PER PROTOCOL Last administered on 07/29/21 11:06; Start 07/29/21 at 11:15 Morphine Sulfate (Morphine Sulfate) 1 mg 1X ONCE IM ; Start 07/30/21 at 09:45; Stop 07/30/21 at 09:46; Status Cancel Morphine Sulfate (Morphine Sulfate) 1 mg 1X ONCE IVP Last administered on 07/30/21 10:19; Start 07/30/21 at 10:15; Stop 07/30/21 at 10:16; Status DC Apixaban (Eliquis) 2.5 mg BID PO Last administered on 08/03/21 08:11; Start 08/01/21 at 09:00 Temazepam (Restoril) 15 mg PRN QHS PRN PO INSOMNIA Last administered on 08/02/21 20:36; Start 07/30/21 at 18:00 Sodium Chloride (Saline Mist Nasal) 1 david PRN Q1HR PRN NS NASAL CONGESTION Last administered on 08/02/21 08:30; Start 07/30/21 at 18:00 Cefdinir (Omnicef) 300 mg QHS PO Last administered on 08/02/21 20:36; Start 07/31/21 at 21:00 Sodium Polystyrene Sulfonate (Kayexalate) 15 gm 1X ONCE PO Last administered on 08/01/21 09:49; Start 08/01/21 at 09:15; Stop 08/01/21 at 09:16; Status DC Multi-Ingredient Mouthwash/Gargle (Gi Cocktail) 20 ml PRN QID PRN PO CHEST PAIN Last administered on 08/02/21 10:42; Start 08/02/21 at 10:45 Lorazepam (Ativan Intensol) 2 mg PRN Q4HRS PRN SL ANXIETY / AGITATION Last administered on 08/02/21 12:12; Start 08/02/21 at 11:15 Barium Sulfate (Varibar Thin Liquid Apple) 148 gm 1X ONCE PO Last administered on 08/02/21 13:10; Start 08/02/21 at 12:30; Stop 08/02/21 at 12:31; Status DC Active Scripts Active Celexa (Citalopram Hydrobromide) 10 Mg Tablet 10 Mg PO DAILY 30 Days Aspirin Ec (Aspirin) 81 Mg Tablet. 81 Mg PO DAILYWBKFT 30 Days Amlodipine Besylate 10 Mg Tablet 10 Mg PO DAILY 30 Days Reported Docusate Sodium 100 Mg Capsule 1 Cap PO BID 15 Days Levothyroxine Sodium 100 Mcg Tablet 1 Tab PO DAILY Eliquis (Apixaban) 2.5 Mg Tablet 2.5 Mg PO BID Metoprolol Tartrate 25 Mg Tablet 1 Tab PO BID Pantoprazole Sodium (Pantoprazole Sodium) 40 Mg Tablet. 40 Mg PO DAILYAC Vitals/I & O Vital Sign - Last 24 Hours 08/02/21 08/02/21 08/02/21 08/02/21 15:00 19:00 20:00 20:37 Temp 97.9 97.9 97.9 97.9 Pulse 78 59 59 Resp 17 20 B/P (MAP) 145/77 (99) 141/69 (93) 141/69 Pulse Ox 96 97 O2 Delivery Nasal Cannula Nasal Cannula Nasal Cannula O2 Flow Rate 4.0 4.0 4.0 08/02/21 08/03/21 08/03/21 08/03/21 23:00 03:13 07:00 07:20 Temp 97.5 97.9 98.3 97.5 97.9 98.3 Pulse 76 81 80 Resp 18 18 20 B/P (MAP) 150/85 (106) 115/81 (92) 141/83 (102) Pulse Ox 74 100 93 O2 Delivery Nasal Cannula Nasal Cannula Nasal Cannula Nasal Cannula O2 Flow Rate 4.0 4.0 4.0 4.0 08/03/21 08/03/21 08/03/21 08/03/21 08:00 08:10 08:12 11:00 Temp 98.0 98.0 Pulse 80 80 67 Resp 22 B/P (MAP) 141/83 141/83 144/62 (89) Pulse Ox 98 O2 Delivery Nasal Cannula Nasal Cannula O2 Flow Rate 4.0 4.0 08/03/21 11:17 Pulse Ox 92 O2 Delivery NonRebreather Mask O2 Flow Rate 15.0 Intake and Output 08/02/21 08/02/21 08/03/21 15:00 23:00 07:00 Intake Total 200 ml 200 ml Output Total 250 ml Balance 200 ml -50 ml Justifications for Admission Other Justification Nutrition Consultation Dietary Evaluation: Recommendations by RD: Dietary education by RD, Increase Calorie Intake, Protein supplementation Comments: REC Mech soft diet, Renal Nepro tid mvi and vit c in place per wound protocal Expected Outcomes/Goals: to meet >75% est nutrition needs improved wound status Malnutrition Findings: Food and Nutrition Intake (Sev: <50% est energy req 5days Body Fat Depletion (Non Severe: Mild Depletion Weight Status: Appropriate GUILLERMO OSEGUERA MD Aug 03, 2021 12:52
--- NOTE | 2021-08-03 12:53 | PDOC ---
DATE OF SERVICE DATE: 08/03/21 TIME: 12:51 SUBJECTIVE ROS On Non rebreather OBJECTIVE Vital Signs Vital Signs Date Time Temp Pulse Resp B/P (MAP) Pulse Ox O2 Delivery O2 Flow Rate FiO2 08/03/21 11:17 92 NonRebreather Mask 15.0 08/03/21 11:00 98.0 67 22 144/62 (89) 98.0 I & 0 Intake and Output 08/03/21 07:00 Intake Total 400 ml Output Total 250 ml Balance 150 ml Intake Oral 400 ml Output Urine Total 250 ml # Voids 3 PHYSICAL EXAM Physical Exam General: No acute distress HEENT: Mucous membr. moist/pink, On O2 by NC Neck Supple Abd soft, NT Lungs CTA, non labored CV S1S2 Skin: No breakdown, No significant lesion Neuro: Grossly normal. Has Dx of Dementia Psych/Mental Status: Mental status NL, Mood NL Extremities: No cyanosis, Other (1 + bilateral LE pitting edema) DIAGNOSIS/ASSESSMENT Assessment & Plan ENMA vs CKD - Cardiorenal Baseline Creat in Jun 2021 2.1 ; Creat trending down Baseline renal function unavailable . No labs done today Renal US unremarkable Maintain fluid balance. Strict I/O , daily weight , supportive care, avoid Nephrotoxins HyperKalemia - Mild 08/01 , given Kayexalate x1 Acute Resp Failure - 2/2 CHF - (Home 02 2 lts ) , On Nonrebreather Abnormal CxR - Stable diffuse infiltrate with suspected partial bilateral lower lobe consolidation. Right small and moderate left pleural effusions- s/p Lt thoracentesis with removal 0.7 L of fluid today Atrial fibrillation - per cardiology SSS, tachy-chang syndrome with significant pause. S/p single-chamber permanent pacemaker implantation recently Valvular heart disease; echo with mild to moderate and mild to moderate TR. Estimated PAP 70-75 mmHg. Cardiomyopathy; LVEF 45% with global hypokinesis of the LV Dementia Hypertension, labile- stable currently COMMENT/RELEVANT DATA Meds Current Medications Medications (Trade) Dose Ordered Sig/Tor Start Time Stop Time Status Last Admin Dose Admin Acetaminophen (Tylenol) 650 mg PRN Q6HRS PRN 07/26/21 01:45 07/31/21 22:00 650 MG Albuterol Sulfate (Ventolin Neb Soln) 2.5 mg PRN Q4HRS PRN 07/26/21 12:30 08/03/21 11:13 2.5 MG Amlodipine Besylate (Norvasc) 10 mg DAILY 07/25/21 17:00 08/03/21 08:12 10 MG Apixaban (Eliquis) 2.5 mg BID 08/01/21 09:00 08/03/21 08:11 2.5 MG Ascorbic Acid (Vitamin C) 500 mg DAILY 07/26/21 09:00 08/03/21 08:09 500 MG Aspirin (Ecotrin) 81 mg DAILYWBKFT 07/25/21 17:00 08/03/21 08:09 81 MG Azithromycin (Zithromax) 250 mg DAILY 07/25/21 19:00 07/28/21 09:01 DC 07/28/21 09:19 250 MG Azithromycin 500 mg/Sodium Chloride 250 ml @ 250 mls/hr 1X ONCE 07/24/21 19:00 07/24/21 19:59 DC 07/24/21 19:48 250 MLS/HR Barium Sulfate (Varibar Thin Liquid Apple) 148 gm 1X ONCE 08/02/21 12:30 08/02/21 12:31 DC 08/02/21 13:10 148 GM Cefdinir (Omnicef) 300 mg QHS 07/31/21 21:00 08/02/21 20:36 300 MG Ceftriaxone Sodium (Rocephin) 1 gm Q24H 07/25/21 20:00 07/31/21 14:00 DC 07/30/21 21:21 1 GM Citalopram Hydrobromide (CeleXA) 10 mg DAILY 07/25/21 17:00 08/03/21 08:11 10 MG Docusate Sodium (Colace) 100 mg BID 07/25/21 21:00 08/03/21 08:09 100 MG Fentanyl Citrate (Fentanyl 2ml Vial) 25 mcg PRN Q3HRS PRN 07/26/21 02:30 07/27/21 19:35 25 MCG Furosemide (Lasix) 40 mg 1X ONCE 07/28/21 12:00 07/28/21 12:01 DC 07/28/21 12:23 40 MG Info (Anti-Coagulation Monitoring By Pharmacy) 1 each PRN DAILY PRN 07/29/21 11:15 07/29/21 11:06 1 EACH Lactobacillus Rhamnosus (Culturelle) 1 cap BID 07/26/21 21:00 08/03/21 08:09 1 CAP Levothyroxine Sodium (Synthroid) 100 mcg DAILY07 07/26/21 07:00 08/03/21 05:55 100 MCG Lorazepam (Ativan Intensol) 2 mg PRN Q4HRS PRN 08/02/21 11:15 08/02/21 12:12 2 MG Methylprednisolone Sodium Succinate (SOLU-Medrol 40MG VIAL) 40 mg Q12HR 07/28/21 12:30 08/03/21 08:11 40 MG Metoprolol Tartrate (Lopressor) 25 mg BID 07/25/21 21:00 08/03/21 08:10 25 MG Morphine Sulfate (Morphine Sulfate) 1 mg 1X ONCE 07/30/21 10:15 07/30/21 10:16 DC 07/30/21 10:19 1 MG Multi-Ingredient Mouthwash/Gargle (Gi Cocktail) 20 ml PRN QID PRN 08/02/21 10:45 08/02/21 10:42 20 ML Multivitamins (Thera M Plus) 1 tab DAILY 07/26/21 09:00 08/03/21 08:11 1 TAB Ondansetron HCl (Zofran) 4 mg PRN Q4HRS PRN 07/25/21 20:30 08/01/21 22:39 4 MG Pantoprazole Sodium (Protonix) 40 mg DAILYAC 07/26/21 07:30 08/03/21 07:35 40 MG Sodium Polystyrene Sulfonate (Kayexalate) 15 gm 1X ONCE 08/01/21 09:15 08/01/21 09:16 DC 08/01/21 09:49 15 GM Sodium Chloride (Saline Mist Nasal) 1 david PRN Q1HR PRN 07/30/21 18:00 08/02/21 08:30 1 DAVID Temazepam (Restoril) 15 mg PRN QHS PRN 07/30/21 18:00 08/02/21 20:36 15 MG Results All relevant outside records, renal labs, imaging studies, telemetry/EKG's were reviewed. Justicifation of Admission Dx: Justifications for Admission: Justification of Admission Dx: Yes RITA KIRAN MD Aug 03, 2021 12:53
[2021-08-03 15:00] VITALS: BP 138/71
[2021-08-03 19:15] VITALS: BP 151/64
[2021-08-03] MEDS: TEMAZEPAM 15 MG CAPSULE PO PRN (21:24)
[2021-08-03] MEDS: CEFDINIR 300 MG CAPSULE PO SCH (21:32)
[2021-08-03 23:01] VITALS: BP 162/65
[2021-08-04 03:45] VITALS: BP 175/78
[2021-08-04 05:50] LABS: CALCIUM 8.2 mg/dL (8.5-10.1); CREATININE 1.7 mg/dL (0.6-1.0); GFR 28.3; POTASSIUM 4.7 mmol/L (3.5-5.1)
[2021-08-04] MEDS: LEVOTHYROXINE 100 MCG TABLET PO SCH (05:56)
[2021-08-04 07:00] VITALS: BP 170/76
[2021-08-04] MEDS: PANTOPRAZOLE 40 MG TABLET.DR. PO SCH (07:07)
[2021-08-04] MEDS: CITALOPRAM 10 MG TABLET. PO SCH (08:05)
[2021-08-04] MEDS: MULTIVITAMIN with MINERAL TABLET. PO SCH (08:05)
[2021-08-04] MEDS: methylPREDNISolone SOD SUCC PF 40 MG/ML VIAL. IV SCH ×2 (08:06→19:57)
[2021-08-04] MEDS: ASPIRIN ENTERIC COATED 81 MG TABLET.DR. PO SCH (08:06)
[2021-08-04] MEDS: METOPROLOL TART IMMED RELEASE 25 MG TABLET. PO SCH ×2 (08:06→19:56)
[2021-08-04] MEDS: APIXABAN 2.5 MG TABLET. PO SCH ×2 (08:06→19:56)
[2021-08-04] MEDS: DOCUSATE SODIUM 100 MG CAPSULE. PO SCH ×2 (08:07→19:56)
[2021-08-04] MEDS: LACTOBACILLUS RHAMNOSUS GG 1 CAPSULE. PO SCH ×2 (08:07→19:55)
[2021-08-04] MEDS: ASCORBIC ACID 500 MG TABLET PO SCH (08:07)
[2021-08-04] MEDS: fentaNYL PF VIAL 100 MCG/2 ML VIAL IVP PRN (08:59)
[2021-08-04 11:00] VITALS: BP 147/84
--- NOTE | 2021-08-04 11:40 | PDOC ---
[employer] [facility] PROGRESS NOTE Date of Service DOS: DATE: 08/04/21 TIME: 11:38 Chief Complaint Chief Complaint Multifactorial respiratory failure with pneumonia and CHF Appendectomy Cholecystectomy Hip replacement Pacemaker Tonsillectomy Left arm clot removed Colon resection Previous tobacco abuse with probable COPD Chronic anticoagulation GERD Hypothyroidism History of Present Illness History of Present Illness 08/04 Seen evaluated at bedside. On 4L NC, resting comfortably. Continue medical optimization. PT recommend SNF placement. Hypernatremic on labs today, renal already consulted. Continue current otherwise. 08/03 Evaluate examined at bedside heartburn improved video swallow done yesterday. Continue current otherwise. Discussed with bedside RN. 08/02 Patient evaluated examined bedside. Was contacted by nurse patient was having a nosebleed burning chest pain. Patient was eating at the time symptoms started. Patient says it feels like previous heartburn. Also says almost feels like something stuck in her chest. Check chest x-ray. Basic labs. Epistaxis likely due to dry air oxygen was at humidified. Patient on 4 L nasal cannula. 08/01 Evaluated and examined at bedside. Underwent thoracentesis yesterday tolerated well. Notable amount of agitation today. Still on 8 L nasal cannula. Continue to wean O2 as tolerated. Continue other treatments otherwise. Discussed with bedside RN. 07/31/2021 Patient seen and examined Discussed with RN Chart reviewed She is going for thoracentesis today 07/30/2021 Patient seen and examined twice this morning On first visit she seemed to be kind of plateaued but was on 8 L of oxygen still and very weak The nurse then call me back because the patient became more confused weak coughing and hypoxic The repeat chest x-ray was read as stable effusion but by my eye the left side is larger. I called Dr. Meier he agrees were going to order a thoracentesis but we will need to hold her Eliquis for 1 day first Chart reviewed Discussed with RN 07/29/2021 Patient seen and examined Discussed with RN Chart reviewed Patient is resting with no apparent distress Has O2 per nasal cannula at 8 L Potassium is up to 6 today 07/28/2021 Patient seen and examined Has 2 family members present one is her son the other is his they seem to be good support for her Discussed with RN Chart reviewed 07/27/2021 Patient seen and examined at bedside this morning Patient states she "still is not breathing well" Discussed with RN RN states patient had a rapid response yesterday Chart reviewed 07/26/2021 Patient seen and examined Discussed with RN Chart reviewed Vitals/I&O Vitals/I&O: Vital Signs Date Time Temp Pulse Resp B/P (MAP) Pulse Ox O2 Delivery O2 Flow Rate FiO2 08/04/21 08:59 92 Nasal Cannula 4.0 08/04/21 08:07 63 170/76 08/04/21 07:00 98.0 18 98.0 I & O 08/03/21 08/03/21 08/04/21 15:00 23:00 07:00 Intake Total 60 ml Balance 60 ml Physical Exam General: No acute distress Heart: Regular rate Lungs: Wheezing, Crackles, Other (Slight wheeze and crackles but better than yesterday a little pursed lipped breathing) Abdomen: Normal bowel sounds Extremities: No clubbing, No cyanosis, No edema, Normal pulses, No tenderness/swelling Skin: No rashes Labs Labs: Laboratory Tests Test 08/04/21 05:00 Sodium Level 150 mmol/L (136-145) Potassium Level 4.7 mmol/L (3.5-5.1) Chloride Level 104 mmol/L (98-107) Carbon Dioxide Level 41 mmol/L (21-32) Anion Gap 5 (6-14) Blood Urea Nitrogen 56 mg/dL (7-20) Creatinine 1.7 mg/dL (0.6-1.0) Estimated GFR (Cockcroft-Gault) 28.3 Glucose Level 100 mg/dL (70-99) Calcium Level 8.2 mg/dL (8.5-10.1) Assessment and Plan Assessmemt and Plan Problems Medical Problems: (1) CHF (congestive heart failure) Status: Acute (2) Chronic respiratory failure with hypoxia Status: Acute (3) CKD (chronic kidney disease) Status: Acute (4) Dyspnea Status: Acute (5) Hyperkalemia Status: Acute (6) Pneumonia Status: Acute Comment Review of Relevant I have reviewed the following items yuly (where applicable) has been applied. Justifications for Admission Other Justification PAUL PHOENIX MD Aug 04, 2021 11:40
[2021-08-04 11:48] LABS: BASO % 0 % (0-3); EOS % 0 % (0-3); HEMOGLOBIN 9.4 g/dL (12.0-15.5); LYMPH # 5.4 x10^3/uL (1.0-4.8); LYMPH % 33 % (24-48); MEAN CORPUSCULAR HEMOGLOBIN 30 pg (25-35); MEAN CORPUSCULAR HGB CONC 30 g/dL (31-37); MEAN CORPUSCULAR VOLUME 100 fL (79-100); MONO # 1.2 x10^3/uL (0.0-1.1); MONO % 7 % (0-9); NEUT # 9.8 x10^3/uL (1.8-7.7); NEUT % 59 % (31-73); PLATELET COUNT 224 x10^3/uL (140-400); RED BLOOD COUNT 3.12 x10^6/uL (3.50-5.40); RED CELL DISTRIBUTION WIDTH 17.3 % (11.5-14.5); WHITE BLOOD COUNT 16.5 x10^3/uL (4.0-11.0)
[2021-08-04] MEDS: ALBUTEROL SULFATE 2.5 MG/3 ML NEBU. NEB PRN (11:51)
--- NOTE | 2021-08-04 13:51 | PDOC ---
DATE OF SERVICE DATE: 08/04/21 TIME: 13:47 SUBJECTIVE ROS Comfortable, No new complaints OBJECTIVE Vital Signs Vital Signs Date Time Temp Pulse Resp B/P (MAP) Pulse Ox O2 Delivery O2 Flow Rate FiO2 08/04/21 11:53 Nasal Cannula 4.0 08/04/21 11:00 98.5 81 34 147/84 (105) 93 98.5 I & 0 Intake and Output 08/04/21 07:00 Intake Total 60 ml Balance 60 ml Intake Oral 60 ml # Voids 1 PHYSICAL EXAM Physical Exam General: No acute distress HEENT: Mucous membr. moist/pink, On O2 by NC Neck Supple Abd soft, NT Lungs CTA, non labored CV S1S2 Skin: No breakdown, No significant lesion Neuro: Grossly normal. Has Dx of Dementia Psych/Mental Status: Mental status NL, Mood NL Extremities: No cyanosis, Other (1 + bilateral LE pitting edema) DIAGNOSIS/ASSESSMENT Assessment & Plan ENMA vs CKD - Cardiorenal Baseline Creat in Jun 2021 2.1 ; Creat trending down Baseline renal function unavailable . No labs done today Renal US unremarkable Maintain fluid balance. Strict I/O , daily weight , supportive care, avoid Nephrotoxins HyperKalemia - K normal now HyperNatremia- Mild. Encourage PO fluid intake , if unable recommend IV Hypotonic fluID Acute Resp Failure - 2/2 CHF - (Home 02 2 lts ) , On Nonrebreather Abnormal CxR - Stable diffuse infiltrate with suspected partial bilateral lower lobe consolidation. Right small and moderate left pleural effusions- s/p Lt thoracentesis with removal 0.7 L of fluid today Atrial fibrillation - per cardiology SSS, tachy-chang syndrome with significant pause. S/p single-chamber permanent pacemaker implantation recently Valvular heart disease; echo with mild to moderate and mild to moderate TR. Estimated PAP 70-75 mmHg. Cardiomyopathy; LVEF 45% with global hypokinesis of the LV Dementia Hypertension, labile- stable currently COMMENT/RELEVANT DATA Meds Current Medications Medications (Trade) Dose Ordered Sig/Tor Start Time Stop Time Status Last Admin Dose Admin Acetaminophen (Tylenol) 650 mg PRN Q6HRS PRN 07/26/21 01:45 07/31/21 22:00 650 MG Albuterol Sulfate (Ventolin Neb Soln) 2.5 mg PRN Q4HRS PRN 07/26/21 12:30 08/04/21 11:51 2.5 MG Amlodipine Besylate (Norvasc) 10 mg DAILY 07/25/21 17:00 08/04/21 08:07 10 MG Apixaban (Eliquis) 2.5 mg BID 08/01/21 09:00 08/04/21 08:06 2.5 MG Ascorbic Acid (Vitamin C) 500 mg DAILY 07/26/21 09:00 08/04/21 08:07 500 MG Aspirin (Ecotrin) 81 mg DAILYWBKFT 07/25/21 17:00 08/04/21 08:06 81 MG Azithromycin (Zithromax) 250 mg DAILY 07/25/21 19:00 07/28/21 09:01 DC 07/28/21 09:19 250 MG Azithromycin 500 mg/Sodium Chloride 250 ml @ 250 mls/hr 1X ONCE 07/24/21 19:00 07/24/21 19:59 DC 07/24/21 19:48 250 MLS/HR Barium Sulfate (Varibar Thin Liquid Apple) 148 gm 1X ONCE 08/02/21 12:30 08/02/21 12:31 DC 08/02/21 13:10 148 GM Cefdinir (Omnicef) 300 mg QHS 07/31/21 21:00 08/03/21 21:32 300 MG Ceftriaxone Sodium (Rocephin) 1 gm Q24H 07/25/21 20:00 07/31/21 14:00 DC 07/30/21 21:21 1 GM Citalopram Hydrobromide (CeleXA) 10 mg DAILY 07/25/21 17:00 08/04/21 08:05 10 MG Docusate Sodium (Colace) 100 mg BID 07/25/21 21:00 08/04/21 08:07 100 MG Fentanyl Citrate (Fentanyl 2ml Vial) 25 mcg PRN Q3HRS PRN 07/26/21 02:30 08/04/21 08:59 25 MCG Furosemide (Lasix) 40 mg 1X ONCE 07/28/21 12:00 07/28/21 12:01 DC 07/28/21 12:23 40 MG Info (Anti-Coagulation Monitoring By Pharmacy) 1 each PRN DAILY PRN 07/29/21 11:15 07/29/21 11:06 1 EACH Lactobacillus Rhamnosus (Culturelle) 1 cap BID 07/26/21 21:00 08/04/21 08:07 1 CAP Levothyroxine Sodium (Synthroid) 100 mcg DAILY07 07/26/21 07:00 08/04/21 05:56 100 MCG Lorazepam (Ativan Intensol) 2 mg PRN Q4HRS PRN 08/02/21 11:15 08/02/21 12:12 2 MG Methylprednisolone Sodium Succinate (SOLU-Medrol 40MG VIAL) 40 mg Q12HR 07/28/21 12:30 08/04/21 08:06 40 MG Metoprolol Tartrate (Lopressor) 25 mg BID 07/25/21 21:00 08/04/21 08:06 25 MG Morphine Sulfate (Morphine Sulfate) 1 mg 1X ONCE 07/30/21 10:15 07/30/21 10:16 DC 07/30/21 10:19 1 MG Multi-Ingredient Mouthwash/Gargle (Gi Cocktail) 20 ml PRN QID PRN 08/02/21 10:45 08/02/21 10:42 20 ML Multivitamins (Thera M Plus) 1 tab DAILY 07/26/21 09:00 08/04/21 08:05 1 TAB Ondansetron HCl (Zofran) 4 mg PRN Q4HRS PRN 07/25/21 20:30 08/01/21 22:39 4 MG Pantoprazole Sodium (Protonix) 40 mg DAILYAC 07/26/21 07:30 08/04/21 07:07 40 MG Sodium Polystyrene Sulfonate (Kayexalate) 15 gm 1X ONCE 08/01/21 09:15 08/01/21 09:16 DC 08/01/21 09:49 15 GM Sodium Chloride (Saline Mist Nasal) 1 david PRN Q1HR PRN 07/30/21 18:00 08/02/21 08:30 1 DAVID Temazepam (Restoril) 15 mg PRN QHS PRN 07/30/21 18:00 08/03/21 21:24 15 MG Lab Laboratory Tests Test 08/04/21 05:00 White Blood Count 16.5 x10^3/uL (4.0-11.0) Red Blood Count 3.12 x10^6/uL (3.50-5.40) Hemoglobin 9.4 g/dL (12.0-15.5) Hematocrit 31.0 % (36.0-47.0) Mean Corpuscular Volume 100 fL (79-100) Mean Corpuscular Hemoglobin 30 pg (25-35) Mean Corpuscular Hemoglobin Concent 30 g/dL (31-37) Red Cell Distribution Width 17.3 % (11.5-14.5) Platelet Count 224 x10^3/uL (140-400) Neutrophils (%) (Auto) 59 % (31-73) Lymphocytes (%) (Auto) 33 % (24-48) Monocytes (%) (Auto) 7 % (0-9) Eosinophils (%) (Auto) 0 % (0-3) Basophils (%) (Auto) 0 % (0-3) Neutrophils # (Auto) 9.8 x10^3/uL (1.8-7.7) Lymphocytes # (Auto) 5.4 x10^3/uL (1.0-4.8) Monocytes # (Auto) 1.2 x10^3/uL (0.0-1.1) Eosinophils # (Auto) 0.0 x10^3/uL (0.0-0.7) Basophils # (Auto) 0.0 x10^3/uL (0.0-0.2) Sodium Level 150 mmol/L (136-145) Potassium Level 4.7 mmol/L (3.5-5.1) Chloride Level 104 mmol/L (98-107) Carbon Dioxide Level 41 mmol/L (21-32) Anion Gap 5 (6-14) Blood Urea Nitrogen 56 mg/dL (7-20) Creatinine 1.7 mg/dL (0.6-1.0) Estimated GFR (Cockcroft-Gault) 28.3 Glucose Level 100 mg/dL (70-99) Calcium Level 8.2 mg/dL (8.5-10.1) Results All relevant outside records, renal labs, imaging studies, telemetry/EKG's were reviewed. Justicifation of Admission Dx: Justifications for Admission: Justification of Admission Dx: Yes RITA KIRAN MD Aug 04, 2021 13:51
--- NOTE | 2021-08-04 14:10 | PDOC ---
PROGRESS NOTES Date of Service DATE: 08/04/21 TIME: 14:08 Subjective Subjective Patient seen and examined Objective Objective Vital Signs Date Time Temp Pulse Resp B/P (MAP) Pulse Ox O2 Delivery O2 Flow Rate FiO2 08/04/21 11:53 Nasal Cannula 4.0 08/04/21 11:00 98.5 81 34 147/84 (105) 93 98.5 Intake and Output 08/04/21 07:00 Intake Total 60 ml Balance 60 ml Intake Oral 60 ml # Voids 1 Physical Exam Abdomen: Normal bowel sounds Heart: Regular rate General: mild distress Lungs: Other (Mildly decreased breath sounds) Assessment Assessment Problems Medical Problems: (1) CHF (congestive heart failure) Status: Acute (2) Chronic respiratory failure with hypoxia Status: Acute (3) CKD (chronic kidney disease) Status: Acute (4) Dyspnea Status: Acute (5) Hyperkalemia Status: Acute (6) Pneumonia Status: Acute Acute on chronic systolic HF: Improved. s/p thoracentesis for pleural effusion. Continue current medical regimen. ENMA with hyperkalemia: nephrology following. Morning potassium of 4.7 with an improved creatinine at 1.7. Recent PE. Continue present treatment. Valvular heart disease; echo with mild to moderate and mild to moderate TR. Estimated PAP 70-75 mmHg. Cardiomyopathy; LVEF 45% with global hypokinesis of the LV Hypertension, improved but labile episodes SSS, tachy-chang syndrome: S/P PPM clinically stable Severe pulmonary HTN Persistent AFIB: rate controlled with intermittent pacing. Continue Eliquis for stroke prophylaxis. PPM in situ Comment Review of Relevant I have reviewed the following items yuly (where applicable) has been applied. Labs Laboratory Tests Test 08/04/21 05:00 White Blood Count 16.5 x10^3/uL (4.0-11.0) Red Blood Count 3.12 x10^6/uL (3.50-5.40) Hemoglobin 9.4 g/dL (12.0-15.5) Hematocrit 31.0 % (36.0-47.0) Mean Corpuscular Volume 100 fL (79-100) Mean Corpuscular Hemoglobin 30 pg (25-35) Mean Corpuscular Hemoglobin Concent 30 g/dL (31-37) Red Cell Distribution Width 17.3 % (11.5-14.5) Platelet Count 224 x10^3/uL (140-400) Neutrophils (%) (Auto) 59 % (31-73) Lymphocytes (%) (Auto) 33 % (24-48) Monocytes (%) (Auto) 7 % (0-9) Eosinophils (%) (Auto) 0 % (0-3) Basophils (%) (Auto) 0 % (0-3) Neutrophils # (Auto) 9.8 x10^3/uL (1.8-7.7) Lymphocytes # (Auto) 5.4 x10^3/uL (1.0-4.8) Monocytes # (Auto) 1.2 x10^3/uL (0.0-1.1) Eosinophils # (Auto) 0.0 x10^3/uL (0.0-0.7) Basophils # (Auto) 0.0 x10^3/uL (0.0-0.2) Sodium Level 150 mmol/L (136-145) Potassium Level 4.7 mmol/L (3.5-5.1) Chloride Level 104 mmol/L (98-107) Carbon Dioxide Level 41 mmol/L (21-32) Anion Gap 5 (6-14) Blood Urea Nitrogen 56 mg/dL (7-20) Creatinine 1.7 mg/dL (0.6-1.0) Estimated GFR (Cockcroft-Gault) 28.3 Glucose Level 100 mg/dL (70-99) Calcium Level 8.2 mg/dL (8.5-10.1) Laboratory Tests Test 08/04/21 05:00 White Blood Count 16.5 x10^3/uL (4.0-11.0) Red Blood Count 3.12 x10^6/uL (3.50-5.40) Hemoglobin 9.4 g/dL (12.0-15.5) Hematocrit 31.0 % (36.0-47.0) Mean Corpuscular Volume 100 fL (79-100) Mean Corpuscular Hemoglobin 30 pg (25-35) Mean Corpuscular Hemoglobin Concent 30 g/dL (31-37) Red Cell Distribution Width 17.3 % (11.5-14.5) Platelet Count 224 x10^3/uL (140-400) Neutrophils (%) (Auto) 59 % (31-73) Lymphocytes (%) (Auto) 33 % (24-48) Monocytes (%) (Auto) 7 % (0-9) Eosinophils (%) (Auto) 0 % (0-3) Basophils (%) (Auto) 0 % (0-3) Neutrophils # (Auto) 9.8 x10^3/uL (1.8-7.7) Lymphocytes # (Auto) 5.4 x10^3/uL (1.0-4.8) Monocytes # (Auto) 1.2 x10^3/uL (0.0-1.1) Eosinophils # (Auto) 0.0 x10^3/uL (0.0-0.7) Basophils # (Auto) 0.0 x10^3/uL (0.0-0.2) Sodium Level 150 mmol/L (136-145) Potassium Level 4.7 mmol/L (3.5-5.1) Chloride Level 104 mmol/L (98-107) Carbon Dioxide Level 41 mmol/L (21-32) Anion Gap 5 (6-14) Blood Urea Nitrogen 56 mg/dL (7-20) Creatinine 1.7 mg/dL (0.6-1.0) Estimated GFR (Cockcroft-Gault) 28.3 Glucose Level 100 mg/dL (70-99) Calcium Level 8.2 mg/dL (8.5-10.1) Microbiology 07/31/21 Gram Stain - Final, Resulted 07/31/21 Aerobic and Anaerobic Culture - Preliminary, Resulted Medications Current Medications Ceftriaxone Sodium (Rocephin) 1 gm 1X ONCE IVP Last administered on 07/24/21at 19:54; Start 07/24/21 at 19:00; Stop 07/24/21 at 19:01; Status DC Azithromycin 500 mg/Sodium Chloride 250 ml @ 250 mls/hr 1X ONCE IV Last administered on 07/24/21at 19:48; Start 07/24/21 at 19:00; Stop 07/24/21 at 19:59; Status DC Furosemide (Lasix) 20 mg 1X ONCE IVP Last administered on 07/24/21at 19:53; Start 07/24/21 at 19:00; Stop 07/24/21 at 19:01; Status DC Apixaban (Eliquis) 2.5 mg BID PO Last administered on 07/30/21at 08:54; Start 07/24/21 at 21:00; Stop 07/30/21 at 11:15; Status DC Ondansetron HCl (Zofran) 4 mg 1X ONCE IVP Last administered on 07/24/21at 20:07; Start 07/24/21 at 20:15; Stop 07/24/21 at 20:16; Status DC Amlodipine Besylate (Norvasc) 10 mg DAILY PO Last administered on 08/04/21at 08:07; Start 07/25/21 at 17:00 Aspirin (Ecotrin) 81 mg DAILYWBKFT PO Last administered on 08/04/21at 08:06; Start 07/25/21 at 17:00 Citalopram Hydrobromide (CeleXA) 10 mg DAILY PO Last administered on 08/04/21at 08:05; Start 07/25/21 at 17:00 Levothyroxine Sodium (Synthroid) 100 mcg DAILY07 PO Last administered on 08/04/21at 05:56; Start 07/26/21 at 07:00 Metoprolol Tartrate (Lopressor) 25 mg BID PO Last administered on 08/04/21at 08:06; Start 07/25/21 at 21:00 Pantoprazole Sodium (Protonix) 40 mg DAILYAC PO Last administered on 08/04/21at 07:07; Start 07/26/21 at 07:30 Ascorbic Acid (Vitamin C) 500 mg DAILY PO Last administered on 08/04/21at 08:07; Start 07/26/21 at 09:00 Multivitamins (Thera M Plus) 1 tab DAILY PO Last administered on 08/04/21at 08:05; Start 07/26/21 at 09:00 Ceftriaxone Sodium (Rocephin) 1 gm Q24H IVP Last administered on 07/30/21at 21:21; Start 07/25/21 at 20:00; Stop 07/31/21 at 14:00; Status DC Azithromycin (Zithromax) 250 mg DAILY PO Last administered on 07/28/21at 09:19; Start 07/25/21 at 19:00; Stop 07/28/21 at 09:01; Status DC Docusate Sodium (Colace) 100 mg BID PO Last administered on 08/04/21at 08:07; Start 07/25/21 at 21:00 Ondansetron HCl (Zofran) 4 mg PRN Q4HRS PRN IVP NAUSEA/VOMITING Last administered on 08/01/21 22:39; Start 07/25/21 at 20:30 Acetaminophen (Tylenol) 650 mg PRN Q6HRS PRN PO MILD PAIN / TEMP > 100.3'F Last administered on 07/31/21at 22:00; Start 07/26/21 at 01:45 Fentanyl Citrate (Fentanyl 2ml Vial) 25 mcg PRN Q3HRS PRN IVP SEVERE PAIN 7-10 Last administered on 08/04/21 08:59; Start 07/26/21 at 02:30 Albuterol Sulfate (Ventolin Neb Soln) 2.5 mg PRN Q4HRS PRN NEB SHORTNESS OF BREATH Last administered on 08/04/21 11:51; Start 07/26/21 at 12:30 Furosemide (Lasix) 40 mg 1X ONCE IVP Last administered on 07/26/21 16:45; Start 07/26/21 at 13:45; Stop 07/26/21 at 13:48; Status DC Lactobacillus Rhamnosus (Culturelle) 1 cap BID PO Last administered on 08/04/21 08:07; Start 07/26/21 at 21:00 Furosemide (Lasix) 40 mg 1X ONCE IVP Last administered on 07/28/21at 12:23; Start 07/28/21 at 12:00; Stop 07/28/21 at 12:01; Status DC Methylprednisolone Sodium Succinate (SOLU-Medrol 40MG VIAL) 40 mg Q12HR IV Last administered on 08/04/21at 08:06; Start 07/28/21 at 12:30 Sodium Polystyrene Sulfonate (Kayexalate) 15 gm 1X ONCE PO Last administered on 07/29/21at 10:36; Start 07/29/21 at 10:00; Stop 07/29/21 at 10:01; Status DC Info (Anti-Coagulation Monitoring By Pharmacy) 1 each PRN DAILY PRN MC PER PROTOCOL Last administered on 07/29/21at 11:06; Start 07/29/21 at 11:15 Morphine Sulfate (Morphine Sulfate) 1 mg 1X ONCE IM ; Start 07/30/21 at 09:45; Stop 07/30/21 at 09:46; Status Cancel Morphine Sulfate (Morphine Sulfate) 1 mg 1X ONCE IVP Last administered on 07/30/21 10:19; Start 07/30/21 at 10:15; Stop 07/30/21 at 10:16; Status DC Apixaban (Eliquis) 2.5 mg BID PO Last administered on 08/04/21 08:06; Start 08/01/21 at 09:00 Temazepam (Restoril) 15 mg PRN QHS PRN PO INSOMNIA Last administered on 08/03/21 21:24; Start 07/30/21 at 18:00 Sodium Chloride (Saline Mist Nasal) 1 david PRN Q1HR PRN NS NASAL CONGESTION Last administered on 08/02/21 08:30; Start 07/30/21 at 18:00 Cefdinir (Omnicef) 300 mg QHS PO Last administered on 08/03/21 21:32; Start 07/31/21 at 21:00 Sodium Polystyrene Sulfonate (Kayexalate) 15 gm 1X ONCE PO Last administered on 08/01/21at 09:49; Start 08/01/21 at 09:15; Stop 08/01/21 at 09:16; Status DC Multi-Ingredient Mouthwash/Gargle (Gi Cocktail) 20 ml PRN QID PRN PO CHEST PAIN Last administered on 08/02/21 10:42; Start 08/02/21 at 10:45 Lorazepam (Ativan Intensol) 2 mg PRN Q4HRS PRN SL ANXIETY / AGITATION Last administered on 08/02/21 12:12; Start 08/02/21 at 11:15 Barium Sulfate (Varibar Thin Liquid Apple) 148 gm 1X ONCE PO Last administered on 08/02/21at 13:10; Start 08/02/21 at 12:30; Stop 08/02/21 at 12:31; Status DC Active Scripts Active Celexa (Citalopram Hydrobromide) 10 Mg Tablet 10 Mg PO DAILY 30 Days Aspirin Ec (Aspirin) 81 Mg Tablet.dr 81 Mg PO DAILYWBKFT 30 Days Amlodipine Besylate 10 Mg Tablet 10 Mg PO DAILY 30 Days Reported Docusate Sodium 100 Mg Capsule 1 Cap PO BID 15 Days Levothyroxine Sodium 100 Mcg Tablet 1 Tab PO DAILY Eliquis (Apixaban) 2.5 Mg Tablet 2.5 Mg PO BID Metoprolol Tartrate 25 Mg Tablet 1 Tab PO BID Pantoprazole Sodium (Pantoprazole Sodium) 40 Mg Tablet.dr 40 Mg PO DAILYAC Vitals/I & O Vital Sign - Last 24 Hours 08/03/21 08/03/21 08/03/21 08/03/21 15:00 19:15 20:15 21:25 Temp 98.2 98.3 98.2 98.3 Pulse 72 59 59 Resp 22 21 B/P (MAP) 138/71 (93) 151/64 (93) 151/64 Pulse Ox 95 93 O2 Delivery Nasal Cannula Nasal Cannula Nasal Cannula O2 Flow Rate 4.0 4.0 4.0 08/03/21 08/04/21 08/04/21 08/04/21 23:01 03:45 07:00 08:00 Temp 98.6 98.0 98.0 98.6 98.0 98.0 Pulse 66 68 63 Resp 20 18 B/P (MAP) 162/65 (97) 175/78 (110) 170/76 (107) Pulse Ox 97 92 92 O2 Delivery Nasal Cannula Nasal Cannula Nasal Cannula Nasal Cannula O2 Flow Rate 4.0 4.0 4.0 4.0 08/04/21 08/04/21 08/04/21 08/04/21 08:06 08:07 08:59 11:00 Temp 98.5 98.5 Pulse 63 63 81 Resp 34 B/P (MAP) 170/63 170/76 147/84 (105) Pulse Ox 92 93 O2 Delivery Nasal Cannula Nasal Cannula O2 Flow Rate 4.0 4.0 08/04/21 11:53 O2 Delivery Nasal Cannula O2 Flow Rate 4.0 Intake and Output 08/03/21 08/03/21 08/04/21 15:00 23:00 07:00 Intake Total 60 ml Balance 60 ml Justifications for Admission Other Justification Nutrition Consultation Dietary Evaluation: Recommendations by RD: Dietary education by RD, Increase Calorie Intake, Pro tein supplementation Comments: REC Mech soft diet, Renal Nepro tid mvi and vit c in place per wound protocal Expected Outcomes/Goals: to meet >75% est nutrition needs improved wound status Malnutrition Findings: Food and Nutrition Intake (Sev: <50% est energy req 5days Body Fat Depletion (Non Severe: Mild Depletion Weight Status: Appropriate GUILLERMO OSEGUERA MD Aug 04, 2021 14:10
[2021-08-04 15:00] VITALS: BP 156/67
[2021-08-04 19:27] VITALS: BP 172/76
--- NOTE | 2021-08-04 19:45 | NUR ---
Pt on honey thick liquids. Pt upset about it, refusing to have any liquids that are thickened at this time. Explained need to have some liquid intake, pt refuses and continues to ask for a little bit of regular water. Explained to pt the aspiration risk associated with thin liquids for her, but pt still refuses. Pt did eat one pudding cup with medications. Bed Alarm on, will monitor. Addendum: 08/04/21 at 2245 by DAVID BEAUCHAMP RN Amended: Links added.
[2021-08-04] MEDS: CEFDINIR 300 MG CAPSULE PO SCH (19:55)
[2021-08-04] MEDS: TEMAZEPAM 15 MG CAPSULE PO PRN (19:56)
[2021-08-04 22:45] VITALS: BP 160/97
[2021-08-05 02:29] VITALS: BP 158/85
[2021-08-05] MEDS: LEVOTHYROXINE 100 MCG TABLET PO SCH (05:37)
[2021-08-05 07:00] VITALS: BP 161/95
[2021-08-05 07:27] LABS: CREATININE 1.6 mg/dL (0.6-1.0); GFR 30.3; POTASSIUM 5.3 mmol/L (3.5-5.1)
[2021-08-05] MEDS: DOCUSATE SODIUM 100 MG CAPSULE. PO SCH ×2 (08:45→20:23)
[2021-08-05] MEDS: ASCORBIC ACID 500 MG TABLET PO SCH (08:45)
[2021-08-05] MEDS: PANTOPRAZOLE 40 MG TABLET.DR. PO SCH (08:45)
[2021-08-05] MEDS: APIXABAN 2.5 MG TABLET. PO SCH ×2 (08:45→20:23)
[2021-08-05] MEDS: ASPIRIN ENTERIC COATED 81 MG TABLET.DR. PO SCH (08:45)
[2021-08-05] MEDS: CITALOPRAM 10 MG TABLET. PO SCH (08:45)
[2021-08-05] MEDS: MULTIVITAMIN with MINERAL TABLET. PO SCH (08:45)
[2021-08-05] MEDS: LACTOBACILLUS RHAMNOSUS GG 1 CAPSULE. PO SCH ×2 (08:45→20:23)
[2021-08-05] MEDS: METOPROLOL TART IMMED RELEASE 25 MG TABLET. PO SCH ×2 (08:46→20:23)
[2021-08-05] MEDS: methylPREDNISolone SOD SUCC PF 40 MG/ML VIAL. IV SCH ×2 (08:47→20:23)
--- NOTE | 2021-08-05 10:30 | PDOC ---
MOISE CARTAGENA PEDIATRIC NURSE PRACTITIONER 08/05/21 1030: CARDIO Progress Notes Date and Time Date of Service 08/05/21 Time of Evaluation 1020 Subjective Subjective: No Chest Pain, No shortness of breath, No Palpitations Vitals Vitals Vital Signs Date Time Temp Pulse Resp B/P (MAP) Pulse Ox O2 Delivery O2 Flow Rate FiO2 08/05/21 08:46 84 161/95 08/05/21 07:20 Nasal Cannula 4.0 08/05/21 07:00 97.9 16 100 97.9 Weight Weight [ ] Input and Output Intake and Output Intake and Output 08/05/21 07:00 Intake Total 50 ml Balance 50 ml Intake Oral 50 ml # Voids 2 Laboratory Labs Laboratory Tests Test 08/05/21 05:55 Sodium Level 150 mmol/L (136-145) Potassium Level 5.3 mmol/L (3.5-5.1) Chloride Level 104 mmol/L (98-107) Carbon Dioxide Level 40 mmol/L (21-32) Anion Gap 6 (6-14) Blood Urea Nitrogen 50 mg/dL (7-20) Creatinine 1.6 mg/dL (0.6-1.0) Estimated GFR (Cockcroft-Gault) 30.3 Glucose Level 141 mg/dL (70-99) Calcium Level 8.0 mg/dL (8.5-10.1) Microbiology Micro Microbiology 07/31/21 Gram Stain - Final, Complete 07/31/21 Aerobic and Anaerobic Culture - Final, Complete Physical Exam HEENT: Neck Supple W Full Motion Chest: Symmetric, Other (left chest pacemaker incision well-approximated. Steri-strips intact) LUNGS: Other (diminished bases) Heart: irregularly irregular (AFIB) Abdomen: Soft N/T Extremities: No Edema Neurology: alert, follow commands Assessment Assessment 1 Acute respiratory failure with a/c CHF and pleural effusion; s/p thoracent esis 2. Acute on chronic systolic HF: Improved 3. ENMA with hyperkalemia, hyponatremia: as per nephrology 4. Recent PE 5. Valvular heart disease; echo with mild to moderate and mild to moderate TR. Estimated PAP 70-75 mmHg. 6. Cardiomyopathy; LVEF 45% with global hypokinesis of the LV 7. Dementia 8. Hypertension, labile episodes 9. SSS, tachy-chang syndrome: S/P PPM clinically stable 10. Severe pulmonary HTN 11. Persistent AFIB/flutter: rate controlled with intermittent pacing. Continue Eliquis for stroke prophylaxis. 12. PPM in situ: on 07/03/2021. stable Recommendations Continue metoprolol for rate control Low-dose Eliquis for stroke prophylaxis No ACEi/ARB with hyperkalemia Follow nephrology recs Supportive care Follow up in our office with Dr. Palafox as scheduled Justicifation of Admission Dx: Justifications for Admission: Justification of Admission Dx: Yes FELIPE PALAFOX MD 08/05/21 1536: CARDIO Progress Notes Assessment Assessment Patient seen and examined. Agree with QUALITY MANAGEMENT NURSE's assessment and plan. Acute on chronic systolic heart failure better compensated. Atrial fibrillation rate well controlled. Continue Eliquis for stroke prophylaxis. SSS s/p PPM clinically stable. Nephrology following for ENMA/hyperkalemia/hyponatremia MOISE CARTAGENA APRN Aug 05, 2021 10:30 FELIPE PALAFOX MD Aug 05, 2021 15:36
[2021-08-05 11:00] VITALS: BP 160/88
--- NOTE | 2021-08-05 11:50 | PDOC ---
Renal-Progress Notes Subjective Notes Notes NO NEW COMPLAINTS History of Present Illness Hx of present illness STABLE Vitals Vitals Vital Signs Date Time Temp Pulse Resp B/P (MAP) Pulse Ox O2 Delivery O2 Flow Rate FiO2 08/05/21 08:46 84 161/95 08/05/21 07:20 Nasal Cannula 4.0 08/05/21 07:00 97.9 16 100 97.9 Weight Weight [ ] I.O. Intake and Output Intake and Output 08/05/21 07:00 Intake Total 50 ml Balance 50 ml Intake Oral 50 ml # Voids 2 Labs Labs Laboratory Tests Test 08/05/21 05:55 Sodium Level 150 mmol/L (136-145) Potassium Level 5.3 mmol/L (3.5-5.1) Chloride Level 104 mmol/L (98-107) Carbon Dioxide Level 40 mmol/L (21-32) Anion Gap 6 (6-14) Blood Urea Nitrogen 50 mg/dL (7-20) Creatinine 1.6 mg/dL (0.6-1.0) Estimated GFR (Cockcroft-Gault) 30.3 Glucose Level 141 mg/dL (70-99) Calcium Level 8.0 mg/dL (8.5-10.1) Micro Micro Microbiology 07/31/21 Gram Stain - Final, Complete 07/31/21 Aerobic and Anaerobic Culture - Final, Complete Review of Systems Constitutional: yes: weakness, alert Ears/Nose/Throat: Yes: no symptom reported Eyes: Yes: no symptom reported Pulmonary: Yes dyspnea Cardiovascular: Yes no symptom reported Gastrointestional: Yes: no symptom reported Genitourinary: Yes: no symptom reported Musculoskeletal: Yes: muscle stiffness Skin: Yes no symptom reported Psychiatric/Neurological: Yes: no symptom reported Physical Exam General Appearance: no apparent distress Skin: warm Respiratory: decreased breath sounds Heart: S1S2 Abdomen: soft, bowel sounds present Genitourinary: bladder flat Extremities: pulses present, atrophy Musculoskeletal: Osteoarthritis Assessment Assessment IMP ENMA-RESOLVED CKD STAGE 3B WITH CR OF 1.6 HYPERNATREMIA MILD ECVD HYPERKALEMIA S/P THORACENTESIS FOR PL EFFUSION CM WITH EF OF 45% SEVERE PULM HTN AFIB RATE CONTROLLED LABILE HTN-PER CARDIOLOGY DEMENTIA PLAN HYPOTONIC SALINE LABS IN AM WILL FOLLOW ELINA JONAS MD Aug 05, 2021 11:50
--- NOTE | 2021-08-05 11:55 | PDOC ---
[facility] PROGRESS NOTE Date of Service DOS: DATE: 08/05/21 TIME: 11:53 Chief Complaint Chief Complaint Multifactorial respiratory failure with pneumonia and CHF Appendectomy Cholecystectomy Hip replacement Pacemaker Tonsillectomy Left arm clot removed Colon resection Previous tobacco abuse with probable COPD Chronic anticoagulation GERD Hypothyroidism History of Present Illness History of Present Illness 08/05 Evaluated at bedside. Resting in bed no apparent distress. Hypokalemic hypernatremic switching to hypotonic saline for nephrology. Closely monitor this. If labs improved on morning can likely DC then. Patient refusing SNF 08/04 Seen evaluated at bedside. On 4L NC, resting comfortably. Continue medical optimization. PT recommend SNF placement. Hypernatremic on labs today, renal already consulted. Continue current otherwise. 08/03 Evaluate examined at bedside heartburn improved video swallow done yesterday. Continue current otherwise. Discussed with bedside RN. 08/02 Patient evaluated examined bedside. Was contacted by nurse patient was having a nosebleed burning chest pain. Patient was eating at the time symptoms started. Patient says it feels like previous heartburn. Also says almost feels like something stuck in her chest. Check chest x-ray. Basic labs. Epistaxis likely due to dry air oxygen was at humidified. Patient on 4 L nasal cannula. 08/01 Evaluated and examined at bedside. Underwent thoracentesis yesterday tolerated well. Notable amount of agitation today. Still on 8 L nasal cannula. Continue to wean O2 as tolerated. Continue other treatments otherwise. Discussed with bedside RN. 07/31/2021 Patient seen and examined Discussed with RN Chart reviewed She is going for thoracentesis today 07/30/2021 Patient seen and examined twice this morning On first visit she seemed to be kind of plateaued but was on 8 L of oxygen still and very weak The nurse then call me back because the patient became more confused weak coughing and hypoxic The repeat chest x-ray was read as stable effusion but by my eye the left side is larger. I called Dr. Meier he agrees were going to order a thoracentesis but we will need to hold her Eliquis for 1 day first Chart reviewed Discussed with RN 07/29/2021 Patient seen and examined Discussed with RN Chart reviewed Patient is resting with no apparent distress Has O2 per nasal cannula at 8 L Potassium is up to 6 today 07/28/2021 Patient seen and examined Has 2 family members present one is her son the other is his they seem to be good support for her Discussed with RN Chart reviewed 07/27/2021 Patient seen and examined at bedside this morning Patient states she "still is not breathing well" Discussed with RN RN states patient had a rapid response yesterday Chart reviewed 07/26/2021 Patient seen and examined Discussed with RN Chart reviewed Vitals/I&O Vitals/I&O: Vital Signs Date Time Temp Pulse Resp B/P (MAP) Pulse Ox O2 Delivery O2 Flow Rate FiO2 08/05/21 08:46 84 161/95 08/05/21 07:20 Nasal Cannula 4.0 08/05/21 07:00 97.9 16 100 97.9 I & O 08/04/21 08/04/21 08/05/21 15:00 23:00 07:00 Intake Total 50 ml Balance 50 ml Physical Exam General: mild distress Heart: Regular rate Lungs: Wheezing, Crackles, Other (Slight wheeze and crackles but better than yesterday a little pursed lipped breathing) Abdomen: Normal bowel sounds Extremities: No clubbing, No cyanosis, No edema, Normal pulses, No tenderness/swelling Skin: No rashes Labs Labs: Laboratory Tests Test 08/05/21 05:55 Sodium Level 150 mmol/L (136-145) Potassium Level 5.3 mmol/L (3.5-5.1) Chloride Level 104 mmol/L (98-107) Carbon Dioxide Level 40 mmol/L (21-32) Anion Gap 6 (6-14) Blood Urea Nitrogen 50 mg/dL (7-20) Creatinine 1.6 mg/dL (0.6-1.0) Estimated GFR (Cockcroft-Gault) 30.3 Glucose Level 141 mg/dL (70-99) Calcium Level 8.0 mg/dL (8.5-10.1) Assessment and Plan Assessmemt and Plan Problems Medical Problems: (1) CHF (congestive heart failure) Status: Acute (2) Chronic respiratory failure with hypoxia Status: Acute (3) CKD (chronic kidney disease) Status: Acute (4) Dyspnea Status: Acute (5) Hyperkalemia Status: Acute (6) Pneumonia Status: Acute Comment Review of Relevant I have reviewed the following items yuly (where applicable) has been applied. Justifications for Admission Other Justification PAUL PHOENIX MD Aug 05, 2021 11:55
[2021-08-05 15:00] VITALS: BP 172/81
[2021-08-05 19:00] VITALS: BP 159/63
[2021-08-05] MEDS: CEFDINIR 300 MG CAPSULE PO SCH (20:23)
[2021-08-05] MEDS: TEMAZEPAM 15 MG CAPSULE PO PRN (20:23)
[2021-08-05 23:00] VITALS: BP 144/60
[2021-08-06 03:00] VITALS: BP 140/64
[2021-08-06 07:00] VITALS: BP_SYST 163; BP_DIAS 192; BP_DIAS 92
[2021-08-06] MEDS: PANTOPRAZOLE 40 MG TABLET.DR. PO SCH (07:03)
[2021-08-06] MEDS: ASPIRIN ENTERIC COATED 81 MG TABLET.DR. PO SCH (07:03)
[2021-08-06] MEDS: LEVOTHYROXINE 100 MCG TABLET PO SCH (07:03)
[2021-08-06 07:59] LABS: CALCIUM 8.1 mg/dL (8.5-10.1); CREATININE 1.7 mg/dL (0.6-1.0); GFR 28.3; POTASSIUM 5.5 mmol/L (3.5-5.1)
--- NOTE | 2021-08-06 08:20 | PDOC ---
MOISE CARTAGENA JAVA TECH 08/06/21 0820: CARDIO Progress Notes Date and Time Date of Service 08/06/21 Time of Evaluation 1210 Subjective Subjective: No Chest Pain, No shortness of breath, No Palpitations, Other (c/o KOTHARI) Vitals Vitals Vital Signs Date Time Temp Pulse Resp B/P (MAP) Pulse Ox O2 Delivery O2 Flow Rate FiO2 08/06/21 07:10 Nasal Cannula 4.0 08/06/21 07:00 97.6 79 18 163/192 (182) 91 97.6 Weight Weight [ ] Input and Output Intake and Output Intake and Output 08/06/21 07:00 Intake Total 120 ml Output Total 400 ml Balance -280 ml Intake Oral 120 ml Output Urine Total 400 ml # Voids 2 Laboratory Labs Laboratory Tests Test 08/06/21 06:20 Sodium Level 151 mmol/L (136-145) Potassium Level 5.5 mmol/L (3.5-5.1) Chloride Level 107 mmol/L (98-107) Carbon Dioxide Level 42 mmol/L (21-32) Anion Gap 2 (6-14) Blood Urea Nitrogen 57 mg/dL (7-20) Creatinine 1.7 mg/dL (0.6-1.0) Estimated GFR (Cockcroft-Gault) 28.3 Glucose Level 142 mg/dL (70-99) Calcium Level 8.1 mg/dL (8.5-10.1) Microbiology Micro Microbiology 07/31/21 Gram Stain - Final, Complete 07/31/21 Aerobic and Anaerobic Culture - Final, Complete Review of Systems Constitutional: yes: weakness, alert Ears/Nose/Throat: Yes: no symptom reported Eyes: Yes: no symptom reported Pulmonary: Yes dyspnea Cardiovascular: Yes no symptom reported Gastrointestional: Yes: no symptom reported Genitourinary: Yes: no symptom reported Musculoskeletal: Yes: muscle stiffness Skin: Yes no symptom reported Psychiatric/Neurological: Yes: no symptom reported Physical Exam HEENT: Neck Supple W Full Motion Chest: Symmetric, Other (left chest pacemaker incision well-approximated. Steri-strips intact) LUNGS: Other (diminished bases) Heart: irregularly irregular (AFIB) Abdomen: Soft N/T Extremities: No Edema Neurology: alert, follow commands Assessment Assessment 1 Acute respiratory failure with a/c CHF and pleural effusion; s/p thoracentesis 2. Acute on chronic systolic HF: Improved 3. ENMA with hyperkalemia, hyponatremia: on IVFs. as per nephrology 4. Recent PE 5. Valvular heart disease; echo with mild to moderate and mild to moderate TR. Estimated PAP 70-75 mmHg. 6. Cardiomyopathy; LVEF 45% with global hypokinesis of the LV 7. Dementia 8. Hypertension, labile episodes 9. SSS, tachy-chang syndrome: S/P PPM clinically stable 10. Severe pulmonary HTN 11. Persistent AFIB/flutter: rate controlled with intermittent pacing. Continue Eliquis for stroke prophylaxis. 12. PPM in situ: on 07/03/2021. stable Recommendations Continue metoprolol for rate control Low-dose Eliquis for stroke prophylaxis No ACEi/ARB with hyperkalemia Follow nephrology recs Supportive care Follow up in our office with Dr. Palafox as scheduled Justicifation of Admission Dx: Justifications for Admission: Justification of Admission Dx: Yes FELIPE PALAFOX MD 08/06/21 2004: CARDIO Progress Notes Assessment Assessment Patient seen and examined. Agree with SPECIMEN ACCESSIONER's assessment and plan. Acute on chronic systolic heart failure better compensated. Atrial fibrillation rate well controlled. Continue Eliquis for stroke prophylaxis. SSS s/p PPM clinically stable. Nephrology following for renal insufficiency MOISE CARTAGENA APRN Aug 06, 2021 08:20 FELIPE PALAFOX MD Aug 06, 2021 20:04
[2021-08-06] MEDS: methylPREDNISolone SOD SUCC PF 40 MG/ML VIAL. IV SCH (08:32)
[2021-08-06] MEDS: DOCUSATE SODIUM 100 MG CAPSULE. PO SCH ×2 (08:33→21:06)
[2021-08-06] MEDS: MULTIVITAMIN with MINERAL TABLET. PO SCH (08:33)
[2021-08-06] MEDS: ASCORBIC ACID 500 MG TABLET PO SCH (08:33)
[2021-08-06] MEDS: CITALOPRAM 10 MG TABLET. PO SCH (08:33)
[2021-08-06] MEDS: APIXABAN 2.5 MG TABLET. PO SCH ×2 (08:33→21:07)
[2021-08-06] MEDS: LACTOBACILLUS RHAMNOSUS GG 1 CAPSULE. PO SCH ×2 (08:33→21:07)
[2021-08-06] MEDS: METOPROLOL TART IMMED RELEASE 25 MG TABLET. PO SCH ×2 (08:38→21:07)
[2021-08-06 10:22] VITALS: BP 153/81
--- NOTE | 2021-08-06 11:29 | PDOC ---
Renal-Progress Notes Subjective Notes Notes NO NEW COMPLAINTS History of Present Illness Hx of present illness UNCHANGED Vitals Vitals Vital Signs Date Time Temp Pulse Resp B/P (MAP) Pulse Ox O2 Delivery O2 Flow Rate FiO2 08/06/21 10:22 97.2 81 18 153/81 (105) 98 Nasal Cannula 4.0 97.2 Weight Weight [ ] I.O. Intake and Output Intake and Output 08/06/21 07:00 Intake Total 120 ml Output Total 400 ml Balance -280 ml Intake Oral 120 ml Output Urine Total 400 ml # Voids 2 Labs Labs Laboratory Tests Test 08/06/21 06:20 Sodium Level 151 mmol/L (136-145) Potassium Level 5.5 mmol/L (3.5-5.1) Chloride Level 107 mmol/L (98-107) Carbon Dioxide Level 42 mmol/L (21-32) Anion Gap 2 (6-14) Blood Urea Nitrogen 57 mg/dL (7-20) Creatinine 1.7 mg/dL (0.6-1.0) Estimated GFR (Cockcroft-Gault) 28.3 Glucose Level 142 mg/dL (70-99) Calcium Level 8.1 mg/dL (8.5-10.1) Micro Micro Microbiology 07/31/21 Gram Stain - Final, Complete 07/31/21 Aerobic and Anaerobic Culture - Final, Complete Review of Systems Constitutional: yes: weakness, alert Ears/Nose/Throat: Yes: no symptom reported Eyes: Yes: no symptom reported Pulmonary: Yes dyspnea Cardiovascular: Yes no symptom reported Gastrointestional: Yes: no symptom reported Genitourinary: Yes: no symptom reported Musculoskeletal: Yes: muscle stiffness Skin: Yes no symptom reported Psychiatric/Neurological: Yes: no symptom reported Physical Exam General Appearance: no apparent distress Skin: warm Respiratory: decreased breath sounds Heart: S1S2 Abdomen: soft, bowel sounds present Genitourinary: bladder flat Extremities: pulses present, atrophy Neurology: alert, follow commands Musculoskeletal: Osteoarthritis Assessment Assessment IMP ENMA-RESOLVED CKD STAGE 3B WITH CR OF 1.7 HYPERNATREMIA MILD ECVD HYPERKALEMIA S/P THORACENTESIS FOR PL EFFUSION CM WITH EF OF 45% SEVERE PULM HTN AFIB RATE CONTROLLED LABILE HTN-PER CARDIOLOGY DEMENTIA PLAN HYPOTONIC SALINE LABS IN AM WILL FOLLOW ELINA JONAS MD Aug 06, 2021 11:29
[2021-08-06] MEDS: IV 1/2 NORMAL SALINE 1,000 ML IV SCH (12:09)
--- NOTE | 2021-08-06 14:07 | PDOC ---
[facility] PROGRESS NOTE Date of Service DOS: DATE: 08/06/21 TIME: 14:00 Chief Complaint Chief Complaint Multifactorial respiratory failure with pneumonia and CHF Appendectomy Cholecystectomy Hip replacement Pacemaker Tonsillectomy Left arm clot removed Colon resection Previous tobacco abuse with probable COPD Chronic anticoagulation GERD Hypothyroidism History of Present Illness History of Present Illness 08/06/2021 No acute events overnight. Patient seen examined bedside. AF and VSS. Patient saturating 98% on 4 L nasal cannula. Continues to be hyponatremic of 151. Potassium of 5.5. We will continue hypotonic saline repeat chemistries in the [facility]. Plan for home health when patient is appropriate for discharge. Patient's chart, labs, images were reviewed and discussed with RN 08/05 Evaluated at bedside. Resting in bed no apparent distress. Hypokalemic hypernatremic switching to hypotonic saline for nephrology. Closely monitor this. If labs improved on morning can likely DC then. Patient refusing SNF 08/04 Seen evaluated at bedside. On 4L NC, resting comfortably. Continue medical optimization. PT recommend SNF placement. Hypernatremic on labs today, renal already consulted. Continue current otherwise. 08/03 Evaluate examined at bedside heartburn improved video swallow done yesterday. Continue current otherwise. Discussed with bedside RN. 08/02 Patient evaluated examined bedside. Was contacted by nurse patient was having a nosebleed burning chest pain. Patient was eating at the time symptoms started. Patient says it feels like previous heartburn. Also says almost feels like something stuck in her chest. Check chest x-ray. Basic labs. Epistaxis likely due to dry air oxygen was at humidified. Patient on 4 L nasal cannula. 08/01 Evaluated and examined at bedside. Underwent thoracentesis yesterday tolerated well. Notable amount of agitation today. Still on 8 L nasal cannula. Continue to wean O2 as tolerated. Continue other treatments otherwise. Discussed with bedside RN. 07/31/2021 Patient seen and examined Discussed with RN Chart reviewed She is going for thoracentesis today 07/30/2021 Patient seen and examined twice this morning On first visit she seemed to be kind of plateaued but was on 8 L of oxygen still and very weak The nurse then call me back because the patient became more confused weak coughing and hypoxic The repeat chest x-ray was read as stable effusion but by my eye the left side is larger. I called Dr. Meier he agrees were going to order a thoracentesis but we will need to hold her Eliquis for 1 day first Chart reviewed Discussed with RN 07/29/2021 Patient seen and examined Discussed with RN Chart reviewed Patient is resting with no apparent distress Has O2 per nasal cannula at 8 L Potassium is up to 6 today 07/28/2021 Patient seen and examined Has 2 family members present one is her son the other is his they seem to be good support for her Discussed with RN Chart reviewed 07/27/2021 Patient seen and examined at bedside this morning Patient states she "still is not breathing well" Discussed with RN RN states patient had a rapid response yesterday Chart reviewed 07/26/2021 Patient seen and examined Discussed with RN Chart reviewed Vitals/I&O Vitals/I&O: Vital Signs Date Time Temp Pulse Resp B/P (MAP) Pulse Ox O2 Delivery O2 Flow Rate FiO2 08/06/21 10:22 97.2 81 18 153/81 (105) 98 Nasal Cannula 4.0 97.2 I & O 08/05/21 08/05/21 08/06/21 15:00 23:00 07:00 Intake Total 120 ml Output Total 400 ml Balance 120 ml -400 ml Physical Exam General: mild distress Heart: Regular rate Lungs: Wheezing, Crackles, Other (Slight wheeze and crackles but better than yesterday a little pursed lipped breathing) Abdomen: Normal bowel sounds Extremities: No clubbing, No cyanosis, No edema, Normal pulses, No tenderness/swelling Skin: No rashes Labs Labs: Laboratory Tests Test 08/06/21 06:20 Sodium Level 151 mmol/L (136-145) Potassium Level 5.5 mmol/L (3.5-5.1) Chloride Level 107 mmol/L (98-107) Carbon Dioxide Level 42 mmol/L (21-32) Anion Gap 2 (6-14) Blood Urea Nitrogen 57 mg/dL (7-20) Creatinine 1.7 mg/dL (0.6-1.0) Estimated GFR (Cockcroft-Gault) 28.3 Glucose Level 142 mg/dL (70-99) Calcium Level 8.1 mg/dL (8.5-10.1) Assessment and Plan Assessmemt and Plan Problems Medical Problems: (1) CHF (congestive heart failure) Status: Acute (2) Chronic respiratory failure with hypoxia Status: Acute (3) CKD (chronic kidney disease) Status: Acute (4) Dyspnea Status: Acute (5) Hyperkalemia Status: Acute (6) Pneumonia Status: Acute Comment Review of Relevant I have reviewed the following items yuly (where applicable) has been applied. Medications: Current Medications Medications (Trade) Dose Ordered Sig/Tor Route PRN Reason Start Time Stop Time Status Last Admin Dose Admin Sodium Chloride 1,000 ml @ 75 mls/hr [id number] IV 08/06/21 11:30 08/06/21 12:09 Justifications for Admission Other Justification DANIELLE OSBORN MD Aug 06, 2021 14:07
[2021-08-06 14:55] VITALS: BP 151/70
[2021-08-06 19:37] VITALS: BP 153/74
[2021-08-06] MEDS: TEMAZEPAM 15 MG CAPSULE PO PRN (21:08)
[2021-08-06 23:10] VITALS: BP 157/88
[2021-08-07] MEDS: IV 1/2 NORMAL SALINE 1,000 ML IV SCH ×2 (02:35→16:07)
[2021-08-07 03:55] VITALS: BP 149/84
[2021-08-07 05:33] LABS: CALCIUM 8.3 mg/dL (8.5-10.1); CREATININE 1.8 mg/dL (0.6-1.0); GFR 26.5; POTASSIUM 4.8 mmol/L (3.5-5.1)
[2021-08-07 07:00] VITALS: BP 152/85
[2021-08-07] MEDS: LACTOBACILLUS RHAMNOSUS GG 1 CAPSULE. PO SCH ×2 (08:12→22:40)
[2021-08-07] MEDS: ASCORBIC ACID 500 MG TABLET PO SCH (08:13)
[2021-08-07] MEDS: MULTIVITAMIN with MINERAL TABLET. PO SCH (08:13)
[2021-08-07] MEDS: ASPIRIN ENTERIC COATED 81 MG TABLET.DR. PO SCH (08:13)
[2021-08-07] MEDS: APIXABAN 2.5 MG TABLET. PO SCH ×2 (08:13→22:40)
[2021-08-07] MEDS: PANTOPRAZOLE 40 MG TABLET.DR. PO SCH (08:13)
[2021-08-07] MEDS: predniSONE 20 MG TABLET PO SCH (08:13)
[2021-08-07] MEDS: METOPROLOL TART IMMED RELEASE 25 MG TABLET. PO SCH ×2 (08:14→22:40)
[2021-08-07] MEDS: DOCUSATE SODIUM 100 MG CAPSULE. PO SCH ×2 (08:14→22:39)
[2021-08-07] MEDS: LEVOTHYROXINE 100 MCG TABLET PO SCH (08:14)
[2021-08-07] MEDS: CITALOPRAM 10 MG TABLET. PO SCH (08:14)
--- NOTE | 2021-08-07 10:40 | PDOC ---
MOISE CARTAGENA LEAD INSTALLER 08/07/21 1040: CARDIO Progress Notes Date and Time Date of Service 08/07/21 Time of Evaluation 1045 Subjective Subjective: No Chest Pain, No shortness of breath, No Palpitations Vitals Vitals Vital Signs Date Time Temp Pulse Resp B/P (MAP) Pulse Ox O2 Delivery O2 Flow Rate FiO2 08/07/21 08:14 80 152/85 08/07/21 07:00 97.8 22 99 Nasal Cannula 4.0 97.8 Weight Weight [ ] Input and Output Intake and Output Intake and Output 08/07/21 07:00 Intake Total 360 ml Output Total 0 ml Balance 360 ml Intake Oral 360 ml Output Urine Total 0 ml # Voids 4 Laboratory Labs Laboratory Tests Test 08/07/21 03:35 Sodium Level 147 mmol/L (136-145) Potassium Level 4.8 mmol/L (3.5-5.1) Chloride Level 105 mmol/L (98-107) Carbon Dioxide Level 42 mmol/L (21-32) Anion Gap 0 (6-14) Blood Urea Nitrogen 60 mg/dL (7-20) Creatinine 1.8 mg/dL (0.6-1.0) Estimated GFR (Cockcroft-Gault) 26.5 Glucose Level 82 mg/dL (70-99) Calcium Level 8.3 mg/dL (8.5-10.1) Microbiology Micro Microbiology 07/31/21 Gram Stain - Final, Complete 07/31/21 Aerobic and Anaerobic Culture - Final, Complete Review of Systems Constitutional: yes: weakness, alert Ears/Nose/Throat: Yes: no symptom reported Eyes: Yes: no symptom reported Pulmonary: Yes dyspnea Cardiovascular: Yes no symptom reported Gastrointestional: Yes: no symptom reported Genitourinary: Yes: no symptom reported Musculoskeletal: Yes: muscle stiffness Skin: Yes no symptom reported Psychiatric/Neurological: Yes: no symptom reported Physical Exam HEENT: Neck Supple W Full Motion Chest: Symmetric, Other (left chest pacemaker incision well-approximated. Steri-strips intact) LUNGS: Other (diminished bases) Heart: irregularly irregular (AFIB) Abdomen: Soft N/T Extremities: No Edema Neurology: alert, oriented, follow commands Assessment Assessment 1 Acute respiratory failure with a/c CHF and pleural effusion; s/p thoracentesis 2. Acute on chronic systolic HF: Improved 3. ENMA with hyperkalemia, hyponatremia: on IVFs. as per nephrology 4. Recent PE 5. Valvular heart disease; echo with mild to moderate and mild to moderate TR. Estimated PAP 70-75 mmHg. 6. Cardiomyopathy; LVEF 45% with global hypokinesis of the LV 7. Dementia 8. Hypertension, labile episodes 9. SSS, tachy-chang syndrome: S/P PPM clinically stable 10. Severe pulmonary HTN 11. Persistent AFIB/flutter: rate controlled with intermittent pacing. Continue Eliquis for stroke prophylaxis. 12. PPM in situ: on 07/03/2021. stable Recommendations Continue metoprolol for rate control Low-dose Eliquis for stroke prophylaxis No ACEi/ARB with hyperkalemia Add hydralazine for BP control Follow nephrology recs Supportive care Follow up in our office with Dr. Palafox as scheduled Justicifation of Admission Dx: Justifications for Admission: Justification of Admission Dx: Yes FELIPE PALAFOX MD 08/07/217: CARDIO Progress Notes Assessment Assessment Patient seen and examined. Agree with INFORMATION SERVICES CONSULTANT's assessment and plan. Acute on chronic systolic heart failure better compensated. Atrial fibrillation rate well controlled. Continue Eliquis for stroke prophylaxis. SSS s/p PPM clinically stable. Nephrology following for renal insufficiency MOISE CARTAGENA APRN Aug 07, 2021 10:40 FELIPE PALAFOX MD Aug 07, 2021 21:57
--- NOTE | 2021-08-07 10:52 | PDOC ---
Renal-Progress Notes Subjective Notes Notes NO ACUTE CHANGES History of Present Illness Hx of present illness STABLE Vitals Vitals Vital Signs Date Time Temp Pulse Resp B/P (MAP) Pulse Ox O2 Delivery O2 Flow Rate FiO2 08/07/21 08:14 80 152/85 08/07/21 07:00 97.8 22 99 Nasal Cannula 4.0 97.8 Weight Weight [ ] I.O. Intake and Output Intake and Output 08/07/21 07:00 Intake Total 360 ml Output Total 0 ml Balance 360 ml Intake Oral 360 ml Output Urine Total 0 ml # Voids 4 Labs Labs Laboratory Tests Test 08/07/21 03:35 Sodium Level 147 mmol/L (136-145) Potassium Level 4.8 mmol/L (3.5-5.1) Chloride Level 105 mmol/L (98-107) Carbon Dioxide Level 42 mmol/L (21-32) Anion Gap 0 (6-14) Blood Urea Nitrogen 60 mg/dL (7-20) Creatinine 1.8 mg/dL (0.6-1.0) Estimated GFR (Cockcroft-Gault) 26.5 Glucose Level 82 mg/dL (70-99) Calcium Level 8.3 mg/dL (8.5-10.1) Micro Micro Microbiology 07/31/21 Gram Stain - Final, Complete 07/31/21 Aerobic and Anaerobic Culture - Final, Complete Review of Systems Constitutional: yes: weakness, alert Ears/Nose/Throat: Yes: no symptom reported Eyes: Yes: no symptom reported Pulmonary: Yes dyspnea Cardiovascular: Yes no symptom reported Gastrointestional: Yes: no symptom reported Genitourinary: Yes: no symptom reported Musculoskeletal: Yes: muscle stiffness Skin: Yes no symptom reported Psychiatric/Neurological: Yes: no symptom reported Physical Exam General Appearance: no apparent distress Skin: warm Respiratory: decreased breath sounds Heart: S1S2 Abdomen: soft, bowel sounds present Genitourinary: bladder flat Extremities: pulses present, atrophy Neurology: alert, follow commands Musculoskeletal: Osteoarthritis Assessment Assessment IMP ENMA-RESOLVED CKD STAGE 3B WITH CR OF 1.8 HYPERNATREMIA-IMPROVED MILD ECVD HYPERKALEMIA S/P THORACENTESIS FOR PL EFFUSION CM WITH EF OF 45% SEVERE PULM HTN-OXYGEN DEPENDENT CHRONIC HYPERCARBIA WITH CHRONIC MET ALKALOSIS AFIB RATE CONTROLLED LABILE HTN-PER CARDIOLOGY DEMENTIA PLAN CONT IVF'S LABS IN AM WILL FOLLOW ELINA JONAS MD Aug 07, 2021 10:52
[2021-08-07 11:00] VITALS: BP 147/80
--- NOTE | 2021-08-07 12:01 | PDOC ---
[facility] PROGRESS NOTE Date of Service DOS: DATE: 08/07/21 TIME: 12:00 Chief Complaint Chief Complaint Multifactorial respiratory failure with pneumonia and CHF Appendectomy Cholecystectomy Hip replacement Pacemaker Tonsillectomy Left arm clot removed Colon resection Previous tobacco abuse with probable COPD Chronic anticoagulation GERD Hypothyroidism History of Present Illness History of Present Illness 08/07/2021 No acute events overnight. Patient seen examined bedside. Resting comfortably. Sodium improved from 151 to 1 47. We will continue with hypotonic saline IV. Trend chemistries in the a.m. Plan for SNF placement when appropriate for d ischarge. Patient's chart, labs, images were reviewed and discussed with RN 08/06/2021 No acute events overnight. Patient seen examined bedside. AF and VSS. Patient saturating 98% on 4 L nasal cannula. Continues to be hyponatremic of 151. Potassium of 5.5. We will continue hypotonic saline repeat chemistries in the morning. Plan for home health when patient is appropriate for discharge. Patient's chart, labs, images were reviewed and discussed with RN 08/05 Evaluated at bedside. Resting in bed no apparent distress. Hypokalemic hypernatremic switching to hypotonic saline for nephrology. Closely monitor this. If labs improved on morning can likely DC then. Patient refusing SNF 08/04 Seen evaluated at bedside. On 4L NC, resting comfortably. Continue medical optimization. PT recommend SNF placement. Hypernatremic on labs today, renal already consulted. Continue current otherwise. 08/03 Evaluate examined at bedside heartburn improved video swallow done yesterday. Continue current otherwise. Discussed with bedside RN. 08/02 Patient evaluated examined bedside. Was contacted by nurse patient was having a nosebleed burning chest pain. Patient was eating at the time symptoms started. Patient says it feels like previous heartburn. Also says almost feels like something stuck in her chest. Check chest x-ray. Basic labs. Epistaxis likely due to dry air oxygen was at humidified. Patient on 4 L nasal cannula. 08/01 Evaluated and examined at bedside. Underwent thoracentesis yesterday tolerated well. Notable amount of agitation today. Still on 8 L nasal cannula. Continue to wean O2 as tolerated. Continue other treatments otherwise. Discussed with bedside RN. 07/31/2021 Patient seen and examined Discussed with RN Chart reviewed She is going for thoracentesis today 07/30/2021 Patient seen and examined twice this morning On first visit she seemed to be kind of plateaued but was on 8 L of oxygen still and very weak The nurse then call me back because the patient became more confused weak coughing and hypoxic The repeat chest x-ray was read as stable effusion but by my eye the left side is larger. I called Dr. Meier he agrees were going to order a thoracentesis but we will need to hold her Eliquis for 1 day first Chart reviewed Discussed with RN 07/29/2021 Patient seen and examined Discussed with RN Chart reviewed Patient is resting with no apparent distress Has O2 per nasal cannula at 8 L Potassium is up to 6 today 07/28/2021 Patient seen and examined Has 2 family members present one is her son the other is his they seem to be good support for her Discussed with RN Chart reviewed 07/27/2021 Patient seen and examined at bedside this morning Patient states she "still is not breathing well" Discussed with RN RN states patient had a rapid response yesterday Chart reviewed 07/26/2021 Patient seen and examined Discussed with RN Chart reviewed Vitals/I&O Vitals/I&O: Vital Signs Date Time Temp Pulse Resp B/P (MAP) Pulse Ox O2 Delivery O2 Flow Rate FiO2 08/07/21 08:14 80 152/85 08/07/21 08:00 Nasal Cannula 4.0 08/07/21 07:00 97.8 22 99 97.8 I & O 08/06/21 08/06/21 08/07/21 15:00 23:00 07:00 Intake Total 60 ml 270 ml 30 ml Output Total 0 ml Balance 60 ml 270 ml 30 ml Physical Exam General: mild distress Heart: Regular rate Lungs: Wheezing, Crackles, Other (Slight wheeze and crackles but better than yesterday a little pursed lipped breathing) Abdomen: Normal bowel sounds Extremities: No clubbing, No cyanosis, No edema, Normal pulses, No tenderness/swelling Skin: No rashes Labs Labs: Laboratory Tests Test 08/07/21 03:35 Sodium Level 147 mmol/L (136-145) Potassium Level 4.8 mmol/L (3.5-5.1) Chloride Level 105 mmol/L (98-107) Carbon Dioxide Level 42 mmol/L (21-32) Anion Gap 0 (6-14) Blood Urea Nitrogen 60 mg/dL (7-20) Creatinine 1.8 mg/dL (0.6-1.0) Estimated GFR (Cockcroft-Gault) 26.5 Glucose Level 82 mg/dL (70-99) Calcium Level 8.3 mg/dL (8.5-10.1) Assessment and Plan Assessmemt and Plan Problems Medical Problems: (1) CHF (congestive heart failure) Status: Acute (2) Chronic respiratory failure with hypoxia Status: Acute (3) CKD (chronic kidney disease) Status: Acute (4) Dyspnea Status: Acute (5) Hyperkalemia Status: Acute (6) Pneumonia Status: Acute Comment Review of Relevant I have reviewed the following items yuly (where applicable) has been applied. Medications: Current Medications Medications (Trade) Dose Ordered Sig/Tor Route PRN Reason Start Time Stop Time Status Last Admin Dose Admin Prednisone (Prednisone) 20 mg DAILY PO 08/07/21 09:00 08/07/21 08:13 Justifications for Admission Other Justification DANIELLE OSBORN MD Aug 07, 2021 12:01
[2021-08-07 15:00] VITALS: BP 138/66
[2021-08-07] MEDS: ACETAMINOPHEN 325 MG TABLET. PO PRN (19:33)
[2021-08-07 19:34] VITALS: BP 140/58
[2021-08-07 23:26] VITALS: BP 152/71
[2021-08-07] MEDS: LORazepam INTENSOL 2 MG/ML ORAL.CONC SL PRN (23:26)
[2021-08-08 03:17] VITALS: BP 142/71
[2021-08-08] MEDS: IV 1/2 NORMAL SALINE 1,000 ML IV SCH ×2 (06:08→16:50)
[2021-08-08 07:00] VITALS: BP 120/58
[2021-08-08] MEDS: LEVOTHYROXINE 100 MCG TABLET PO SCH (07:16)
[2021-08-08] MEDS: PANTOPRAZOLE 40 MG TABLET.DR. PO SCH (07:16)
[2021-08-08 08:20] LABS: CALCIUM 7.9 mg/dL (8.5-10.1); CREATININE 1.9 mg/dL (0.6-1.0); GFR 24.9; POTASSIUM 4.9 mmol/L (3.5-5.1)
[2021-08-08] MEDS: MULTIVITAMIN with MINERAL TABLET. PO SCH (08:20)
[2021-08-08] MEDS: LACTOBACILLUS RHAMNOSUS GG 1 CAPSULE. PO SCH ×2 (08:20→21:44)
[2021-08-08] MEDS: ASPIRIN ENTERIC COATED 81 MG TABLET.DR. PO SCH (08:20)
[2021-08-08] MEDS: CITALOPRAM 10 MG TABLET. PO SCH (08:21)
[2021-08-08] MEDS: METOPROLOL TART IMMED RELEASE 25 MG TABLET. PO SCH ×2 (08:21→21:45)
[2021-08-08] MEDS: APIXABAN 2.5 MG TABLET. PO SCH ×2 (08:21→21:44)
[2021-08-08] MEDS: ASCORBIC ACID 500 MG TABLET PO SCH (08:21)
[2021-08-08] MEDS: DOCUSATE SODIUM 100 MG CAPSULE. PO SCH ×2 (08:21→21:44)
[2021-08-08] MEDS: predniSONE 20 MG TABLET PO SCH (08:22)
--- NOTE | 2021-08-08 10:14 | PDOC ---
Renal-Progress Notes Subjective Notes Notes NONE History of Present Illness Hx of present illness NO ACUTE CHANGES Vitals Vitals Vital Signs Date Time Temp Pulse Resp B/P (MAP) Pulse Ox O2 Delivery O2 Flow Rate FiO2 08/08/21 08:22 70 142/71 08/08/21 08:00 Nasal Cannula 4.0 08/08/21 07:00 96.7 20 91 96.7 Weight Weight [ ] I.O. Intake and Output Intake and Output 08/08/21 07:00 Intake Total 60 ml Output Total 251 ml Balance -191 ml Intake Oral 60 ml Output Urine Total 250 ml Urine/Stool Mix 1 ml Labs Labs Laboratory Tests Test 08/08/21 06:35 Sodium Level 148 mmol/L (136-145) Potassium Level 4.9 mmol/L (3.5-5.1) Chloride Level 105 mmol/L (98-107) Carbon Dioxide Level 41 mmol/L (21-32) Anion Gap 2 (6-14) Blood Urea Nitrogen 59 mg/dL (7-20) Creatinine 1.9 mg/dL (0.6-1.0) Estimated GFR (Cockcroft-Gault) 24.9 Glucose Level 81 mg/dL (70-99) Calcium Level 7.9 mg/dL (8.5-10.1) Micro Micro Microbiology 07/31/21 Gram Stain - Final, Complete 07/31/21 Aerobic and Anaerobic Culture - Final, Complete Review of Systems Constitutional: yes: weakness, alert Ears/Nose/Throat: Yes: no symptom reported Eyes: Yes: no symptom reported Pulmonary: Yes dyspnea Cardiovascular: Yes no symptom reported Gastrointestional: Yes: no symptom reported Genitourinary: Yes: no symptom reported Musculoskeletal: Yes: muscle stiffness Skin: Yes no symptom reported Psychiatric/Neurological: Yes: no symptom reported Physical Exam General Appearance: no apparent distress Skin: warm Respiratory: decreased breath sounds Heart: S1S2 Abdomen: soft, bowel sounds present Genitourinary: bladder flat Extremities: pulses present, atrophy Neurology: alert, oriented, follow commands Musculoskeletal: Osteoarthritis Assessment Assessment IMP ENMA-RESOLVED CKD STAGE 3B WITH CR OF 1.9 HYPERNATREMIA-IMPROVED MILD ECVD HYPERKALEMIA S/P THORACENTESIS FOR PL EFFUSION CM WITH EF OF 45% SEVERE PULM HTN-OXYGEN DEPENDENT CHRONIC HYPERCARBIA WITH CHRONIC MET ALKALOSIS AFIB RATE CONTROLLED LABILE HTN-PER CARDIOLOGY DEMENTIA PLAN ENC FLUIDS WILL FOLLOW JONAS,ELINA S MD Aug 08, 2021 10:14
[2021-08-08] MEDS: ACETAMINOPHEN 325 MG TABLET. PO PRN ×3 (10:25→21:44)
--- NOTE | 2021-08-08 10:30 | NUR ---
Wound Care Wound Type/Assessment: Follow up management of coccyx stage III pressure ulcer. Wound cleansed, assessed, measured, and pictured. Wound base is pink and moist with minimal slough. Margins pink and intact. No other wounds noted on head to toe inspection. Wound has improved. Treatment Recommendations/Plan: Coccyx: Cleanse and pat dry. Apply small amount of nnamdi collagen moistened with saline to wound bed, cover with single layer of xeroform, covered with foam. Change on Thursday. Education provided: Educated to turn side to side to help heal wound. Patient turned to left side using wedge and bilateral heels floated. Offloading surface/device: pt is able to turn independently, requires cueing Recommended Referrals/Tests: NA Discharge Recommendations for dressings: Dressing change instructions left in room as well as extra collagen for next dressing change. Bed lowered and call light in reach. Wound care will follow up on 08/15/21.
--- NOTE | 2021-08-08 10:51 | PDOC ---
MOISE CARTAGENA BLADDER BLOWER 08/08/21 1051: CARDIO Progress Notes Date and Time Date of Service 08/08/21 Time of Evaluation 1050 Subjective Subjective: No Chest Pain, No shortness of breath, No Palpitations Vitals Vitals Vital Signs Date Time Temp Pulse Resp B/P (MAP) Pulse Ox O2 Delivery O2 Flow Rate FiO2 08/08/21 08:22 70 142/71 08/08/21 08:00 Nasal Cannula 4.0 08/08/21 07:00 96.7 20 91 96.7 Weight Weight [ ] Input and Output Intake and Output Intake and Output 08/08/21 07:00 Intake Total 60 ml Output Total 251 ml Balance -191 ml Intake Oral 60 ml Output Urine Total 250 ml Urine/Stool Mix 1 ml Laboratory Labs Laboratory Tests Test 08/08/21 06:35 Sodium Level 148 mmol/L (136-145) Potassium Level 4.9 mmol/L (3.5-5.1) Chloride Level 105 mmol/L (98-107) Carbon Dioxide Level 41 mmol/L (21-32) Anion Gap 2 (6-14) Blood Urea Nitrogen 59 mg/dL (7-20) Creatinine 1.9 mg/dL (0.6-1.0) Estimated GFR (Cockcroft-Gault) 24.9 Glucose Level 81 mg/dL (70-99) Calcium Level 7.9 mg/dL (8.5-10.1) Microbiology Micro Microbiology 07/31/21 Gram Stain - Final, Complete 07/31/21 Aerobic and Anaerobic Culture - Final, Complete Review of Systems Constitutional: yes: weakness, alert Ears/Nose/Throat: Yes: no symptom reported Eyes: Yes: no symptom reported Pulmonary: Yes dyspnea Cardiovascular: Yes no symptom reported Gastrointestional: Yes: no symptom reported Genitourinary: Yes: no symptom reported Musculoskeletal: Yes: muscle stiffness Skin: Yes no symptom reported Psychiatric/Neurological: Yes: no symptom reported Physical Exam HEENT: Neck Supple W Full Motion Chest: Symmetric, Other (left chest pacemaker incision well-approximated. Steri-strips intact) LUNGS: Other (diminished bases) Heart: irregularly irregular (AFIB) Abdomen: Soft N/T Extremities: No Edema Neurology: alert, oriented, follow commands Assessment Assessment 1 Acute respiratory failure with a/c CHF and pleural effusion; s/p thoracentesis 2. Acute on chronic systolic HF: Improved 3. ENMA with hyperkalemia, hyponatremia: s/p IVFs. as per nephrology 4. Recent PE 5. Valvular heart disease; echo with mild to moderate and mild to moderate TR. Estimated PAP 70-75 mmHg. 6. Cardiomyopathy; LVEF 45% with global hypokinesis of the LV 7. Dementia 8. Hypertension, labile episodes 9. SSS, tachy-chang syndrome: S/P PPM clinically stable 10. Severe pulmonary HTN 11. Persistent AFIB/flutter: rate controlled with intermittent pacing. Continue Eliquis for stroke prophylaxis. 12. PPM in situ: on 07/03/2021. stable Recommendations Continue metoprolol for rate control Low-dose Eliquis for stroke prophylaxis No ACEi/ARB with hyperkalemia Follow nephrology recs Supportive care Follow up in our office with Dr. Palafox as scheduled Justicifation of Admission Dx: Justifications for Admission: Justification of Admission Dx: Yes FELIPE PALAFOX MD 08/08/21 1714: CARDIO Progress Notes Assessment Assessment Patient seen and examined. Agree with NEWSPAPER PHOTOGRAPHER's assessment and plan. Acute on chronic systolic heart failure better compensated. Atrial fibrillation rate well controlled. Continue metoprolol for rate control and Eliquis for stroke prophylaxis. SSS s/p PPM clinically stable. Nephrology following for renal insufficiency MOISE CARTAGENA APRN Aug 08, 2021 10:51 FELIPE PALAFOX MD Aug 08, 2021 17:14
[2021-08-08 11:00] VITALS: BP 139/53
[2021-08-08] MEDS ORDERED: MULT1TAB92 PO (12:00)
[2021-08-08] MEDS ORDERED: HYDR-2869 PO (12:00)
[2021-08-08] MEDS ORDERED: ASCO500T4 PO (12:00)
--- NOTE | 2021-08-08 12:03 | SNU/HH DC ---
DISCHARGE ORDERS DISCHARGE INFORMATION: DISCHARGE DATE: Aug 08, 2021 FINAL DIAGNOSIS Problems Medical Problems: (1) CHF (congestive heart failure) Status: Acute (2) Chronic respiratory failure with hypoxia Status: Acute (3) CKD (chronic kidney disease) Status: Acute (4) Dyspnea Status: Acute (5) Hyperkalemia Status: Acute (6) Pneumonia Status: Acute CONDITION ON DISCHARGE: Guarded CODE STATUS: Code Status: DNR/DNI CARE HOME: SNF STAY <30 DAYS: Yes POST DISCHARGE ORDERS: ACTIVITY ORDERS: Activity as tolerated WEIGHT BEARING STATUS: As tolerated DIET AFTER DISCHARGE: Cardiac WOUND/INCISION CARE: Ice to area for comfort CHECKS AFTER DISCHARGE: CHECKS AFTER DISCHARGE: Check blood press - daily, Check your Temp as needed FOLLOW-UP: PHYSICIAN FOLLOW-UP: PCP within 2 weeks of discharge ADDITIONAL FOLLOW-UP: Cardiology as scheduled TREATMENT/EQUIPMENT ORDERS: ADAPTIVE EQUIPMENT NEEDED: Walker Physical Therapy For: Evalulation/Treatment Occupational Therapy For: Evaluation/Treatment Speech Language Pathology For: Evaluation/Treatment DISCHARGE MEDICATIONS: Home Meds Active Scripts Multivits,Ca,Minerals/Iron/Fa (THERA-M TABLET) 1 Each Tablet, 1 TAB PO DAILY for supplement for 30 Days, #30 TAB 3 Refills Prov:DANIELLE OSBORN MD 08/08/21 Ascorbic Acid (VITAMIN C) 500 Mg Tablet, 500 MG PO DAILY for supplement for 30 Days, #30 TAB 3 Refills Prov:DANIELLE OSBORN MD 08/08/21 Hydralazine Hcl (HYDRALAZINE HCL) 50 Mg Tablet, 50 MG PO BID for blood pressure for 30 Days, #60 TAB 3 Refills Prov:DANIELLE OSBORN MD 08/08/21 Citalopram Hydrobromide (CELEXA) 10 Mg Tablet, 10 MG PO DAILY for mdd for 30 D ays, #30 TAB Prov:PAUL PHOENIX MD 07/04/21 Aspirin (ASPIRIN EC) 81 Mg Tablet.dr, 81 MG PO DAILYWBKFT for cad for 30 Days, #30 TAB.SR Prov:PAUL PHOENIX MD 07/04/21 Amlodipine Besylate (AMLODIPINE BESYLATE) 10 Mg Tablet, 10 MG PO DAILY for htn for 30 Days, #30 TAB Prov:PAUL PHOENIX MD 07/04/21 Reported Medications Docusate Sodium (DOCUSATE SODIUM) 100 Mg Capsule, 1 CAP PO BID for constipation for 15 Days, #30 CAP 0 Refills 07/25/21 Levothyroxine Sodium (LEVOTHYROXINE SODIUM) 100 Mcg Tablet, 1 TAB PO DAILY for hypothyroidism, #30 TAB 5 Refills 07/25/21 Apixaban (ELIQUIS) 2.5 Mg Tablet, 2.5 MG PO BID for hx of DVT, Afib, TAB 07/25/21 Metoprolol Tartrate (METOPROLOL TARTRATE) 25 Mg Tablet, 1 TAB PO BID for ., #180 TAB 1 Refill 07/04/21 Pantoprazole Sodium (PANTOPRAZOLE SODIUM ) 40 Mg Tablet., 40 MG PO DAILYAC for GERD, TAB 07/04/21 DANIELLE OSBORN MD Aug 08, 2021 12:03
[2021-08-08 15:00] VITALS: BP 146/59
[2021-08-08 19:00] VITALS: BP 145/64
[2021-08-08] MEDS: TEMAZEPAM 15 MG CAPSULE PO PRN (21:45)
[2021-08-08 23:00] VITALS: BP 127/70
[2021-08-09 03:00] VITALS: BP_SYST 111; BP_SYST 127; BP_DIAS 70; BP_DIAS 75
[2021-08-09] MEDS: IV 1/2 NORMAL SALINE 1,000 ML IV SCH (06:10)
[2021-08-09] MEDS: ACETAMINOPHEN 325 MG TABLET. PO PRN (06:13)
[2021-08-09 07:00] VITALS: BP 144/63
[2021-08-09] MEDS: DOCUSATE SODIUM 100 MG CAPSULE. PO SCH (08:27)
[2021-08-09] MEDS: CITALOPRAM 10 MG TABLET. PO SCH (08:27)
[2021-08-09] MEDS: ASCORBIC ACID 500 MG TABLET PO SCH (08:27)
[2021-08-09] MEDS: ASPIRIN ENTERIC COATED 81 MG TABLET.DR. PO SCH (08:27)
[2021-08-09] MEDS: predniSONE 20 MG TABLET PO SCH (08:28)
[2021-08-09] MEDS: LEVOTHYROXINE 100 MCG TABLET PO SCH (08:28)
[2021-08-09] MEDS: PANTOPRAZOLE 40 MG TABLET.DR. PO SCH (08:28)
[2021-08-09] MEDS: LACTOBACILLUS RHAMNOSUS GG 1 CAPSULE. PO SCH (08:28)
--- NOTE | 2021-08-09 08:28 | PDOC ---
[facility] PROGRESS NOTE Date of Service DOS: DATE: 08/08/21 TIME: 08:28 Chief Complaint Chief Complaint Multifactorial respiratory failure with pneumonia and CHF Appendectomy Cholecystectomy Hip replacement Pacemaker Tonsillectomy Left arm clot removed Colon resection Previous tobacco abuse with probable COPD Chronic anticoagulation GERD Hypothyroidism History of Present Illness History of Present Illness 08/07/2021 No acute events overnight. Patient seen examined bedside. Resting comfortably. Sodium improved from 151 to 1 47. We will continue with hypotonic saline IV. Trend chemistries in the a.m. Plan for SNF placement when appropriate for d ischarge. Patient's chart, labs, images were reviewed and discussed with RN 08/06/2021 No acute events overnight. Patient seen examined bedside. AF and VSS. Patient saturating 98% on 4 L nasal cannula. Continues to be hyponatremic of 151. Potassium of 5.5. We will continue hypotonic saline repeat chemistries in the morning. Plan for home health when patient is appropriate for discharge. Patient's chart, labs, images were reviewed and discussed with RN 08/05 Evaluated at bedside. Resting in bed no apparent distress. Hypokalemic hypernatremic switching to hypotonic saline for nephrology. Closely monitor this. If labs improved on morning can likely DC then. Patient refusing SNF 08/04 Seen evaluated at bedside. On 4L NC, resting comfortably. Continue medical optimization. PT recommend SNF placement. Hypernatremic on labs today, renal already consulted. Continue current otherwise. 08/03 Evaluate examined at bedside heartburn improved video swallow done yesterday. Continue current otherwise. Discussed with bedside RN. 08/02 Patient evaluated examined bedside. Was contacted by nurse patient was having a nosebleed burning chest pain. Patient was eating at the time symptoms started. Patient says it feels like previous heartburn. Also says almost feels like something stuck in her chest. Check chest x-ray. Basic labs. Epistaxis likely due to dry air oxygen was at humidified. Patient on 4 L nasal cannula. 08/01 Evaluated and examined at bedside. Underwent thoracentesis yesterday tolerated well. Notable amount of agitation today. Still on 8 L nasal cannula. Continue to wean O2 as tolerated. Continue other treatments otherwise. Discussed with bedside RN. 07/31/2021 Patient seen and examined Discussed with RN Chart reviewed She is going for thoracentesis today 07/30/2021 Patient seen and examined twice this morning On first visit she seemed to be kind of plateaued but was on 8 L of oxygen still and very weak The nurse then call me back because the patient became more confused weak coughing and hypoxic The repeat chest x-ray was read as stable effusion but by my eye the left side is larger. I called Dr. Meier he agrees were going to order a thoracentesis but we will need to hold her Eliquis for 1 day first Chart reviewed Discussed with RN 07/29/2021 Patient seen and examined Discussed with RN Chart reviewed Patient is resting with no apparent distress Has O2 per nasal cannula at 8 L Potassium is up to 6 today 07/28/2021 Patient seen and examined Has 2 family members present one is her son the other is his they seem to be good support for her Discussed with RN Chart reviewed 07/27/2021 Patient seen and examined at bedside this morning Patient states she "still is not breathing well" Discussed with RN RN states patient had a rapid response yesterday Chart reviewed 07/26/2021 Patient seen and examined Discussed with RN Chart reviewed Vitals/I&O Vitals/I&O: Vital Signs Date Time Temp Pulse Resp B/P (MAP) Pulse Ox O2 Delivery O2 Flow Rate FiO2 08/09/21 03:00 98.0 92 16 111/75 (87) 97 98.0 08/09/21 03:00 Nasal Cannula 08/08/21 20:00 4.0 I & O 08/08/21 08/08/21 08/09/21 15:00 23:00 07:00 Intake Total 100 ml Output Total 550 ml 100 ml 350 ml Balance -550 ml 0 ml -350 ml Physical Exam General: mild distress Heart: Regular rate Lungs: Wheezing, Crackles, Other (Slight wheeze and crackles but better than yesterday a little pursed lipped breathing) Abdomen: Normal bowel sounds Extremities: No clubbing, No cyanosis, No edema, Normal pulses, No tenderness/swelling Skin: No rashes Assessment and Plan Assessmemt and Plan Problems Medical Problems: (1) CHF (congestive heart failure) Status: Acute (2) Chronic respiratory failure with hypoxia Status: Acute (3) CKD (chronic kidney disease) Status: Acute (4) Dyspnea Status: Acute (5) Hyperkalemia Status: Acute (6) Pneumonia Status: Acute Comment Review of Relevant I have reviewed the following items yuly (where applicable) has been applied. Justifications for Admission Other Justification DANIELLE OSBORN MD Aug 09, 2021 08:28
[2021-08-09 08:29] VITALS: BP 144/63
[2021-08-09] MEDS: METOPROLOL TART IMMED RELEASE 25 MG TABLET. PO SCH (08:29)
[2021-08-09] MEDS: APIXABAN 2.5 MG TABLET. PO SCH (08:29)
[2021-08-09] MEDS: MULTIVITAMIN with MINERAL TABLET. PO SCH (08:32)
--- NOTE | 2021-08-09 10:24 | NUR ---
Attempted to call report to [facility].
--- NOTE | 2021-08-09 13:39 | NUR ---
Voicemail left for Blayne ([phone]) regarding belongings left. 1 green bag and dentures.
--- NOTE | 2021-08-09 13:44 | PDOC ---
PROGRESS NOTES Date of Service: DATE: 08/09/21 TIME: 13:44 Subjective Subjective No new complaints Objective Objective Vital Signs Date Time Temp Pulse Resp B/P (MAP) Pulse Ox O2 Delivery O2 Flow Rate FiO2 08/09/21 08:29 60 144/63 08/09/21 08:00 Nasal Cannula 4.0 08/09/21 07:00 97.9 18 97 97.9 Intake and Output 08/09/21 07:00 Intake Total 100 ml Output Total 1000 ml Balance -900 ml Intake Oral 100 ml Output Urine Total 1000 ml Physical Exam Abdomen: Normal bowel sounds Heart: Regular rate Extremities: No clubbing, No cyanosis, No edema, Normal pulses, No tenderness/swelling General: mild distress HEENT: Atraumatic, Mucous membr. moist/pink Lungs: Other (Mildly decreased breath sounds) Neuro: Normal speech Psych/Mental Status: Mental status NL, Mood NL Skin: No rashes Diagnosis RENAL FAILURE: Chronic (CKD stage IV) Assessment Assessment 1 Acute respiratory failure with a/c CHF and pleural effusion; s/p thoracentesis 2. Acute on chronic systolic HF: Improved 3. ENMA with hyperkalemia, hyponatremia: s/p IVFs. as per nephrology 4. Recent PE 5. Valvular heart disease; echo with mild to moderate and mild to moderate TR. Estimated PAP 70-75 mmHg. 6. Cardiomyopathy; LVEF 45% with global hypokinesis of the LV 7. Dementia 8. Hypertension, labile episodes 9. SSS, tachy-chang syndrome: S/P PPM clinically stable 10. Severe pulmonary HTN 11. Persistent AFIB/flutter: rate controlled with intermittent pacing. Continue Eliquis for stroke prophylaxis. 12. PPM in situ: on 07/03/2021. stable Recommendations Continue metoprolol for rate control Low-dose Eliquis for stroke prophylaxis No ACEi/ARB with hyperkalemia Follow nephrology recs Supportive care Follow up in our office as scheduled Plan Plan of Care Problems Medical Problems: (1) CHF (congestive heart failure) Status: Acute (2) Chronic respiratory failure with hypoxia Status: Acute (3) CKD (chronic kidney disease) Status: Acute (4) Dyspnea Status: Acute (5) Hyperkalemia Status: Acute (6) Pneumonia Status: Acute Comment Review of Relevant I have reviewed the following items yuly (where applicable) has been applied. Labs Microbiology 07/31/21 Gram Stain - Final, Complete 07/31/21 Aerobic and Anaerobic Culture - Final, Complete Vitals/I & O Vital Sign - Last 24 Hours 08/08/21 08/08/21 08/08/21 08/08/21 15:00 19:00 20:00 21:44 Temp 98.1 98.6 98.1 98.6 Pulse 65 70 65 Resp 20 20 B/P (MAP) 146/59 (88) 145/64 (91) 146/59 Pulse Ox 97 97 O2 Delivery Nasal Cannula Nasal Cannula O2 Flow Rate 4.0 4.0 08/08/21 08/08/21 08/09/21 08/09/21 21:45 23:00 03:00 03:00 Temp 98.0 98.0 98.0 98.0 98.0 98.0 Pulse 65 75 75 92 Resp 16 16 16 B/P (MAP) 146/59 127/70 (89) 127/70 (89) 111/75 (87) Pulse Ox 98 98 97 O2 Delivery Nasal Cannula 08/09/21 08/09/21 08/09/21 08/09/21 07:00 08:00 08:28 08:29 Temp 97.9 97.9 Pulse 60 60 60 Resp 18 B/P (MAP) 144/63 (90) 114/63 144/63 Pulse Ox 97 O2 Delivery Nasal Cannula Nasal Cannula O2 Flow Rate 4.0 4.0 08/09/21 08:29 Pulse 60 B/P (MAP) 144/63 Intake and Output 08/08/21 08/08/21 08/09/21 15:00 23:00 07:00 Intake Total 100 ml Output Total 550 ml 100 ml 350 ml Balance -550 ml 0 ml -350 ml FELIPE ARBOLEDA MD Aug 09, 2021 13:44
--- NOTE | 2021-08-09 14:53 | NUR ---
family picked up all belongings
--- NOTE | 2021-08-14 11:00 | PDOC3 ---
[facility]-Discharge Summary Date of Admission: Date of Admission: Jul 25, 2021 Date of Discharge: Date of Discharge: Aug 09, 2021 Discharge Diagnosis: Discharge Diagnosis: Multifactorial respiratory failure with pneumonia and CHF Appendectomy Cholecystectomy Hip replacement Pacemaker Tonsillectomy Left arm clot removed Colon resection Previous tobacco abuse with probable COPD Chronic anticoagulation GERD Hypothyroidism Consults: Consults: Per Cardiology: Assessment 1 Acute respiratory failure with a/c CHF and pleural effusion; s/p thoracentesis 2. Acute on chronic systolic HF: Improved 3. ENMA with hyperkalemia, hyponatremia: s/p IVFs. as per nephrology 4. Recent PE 5. Valvular heart disease; echo with mild to moderate and mild to moderate TR. Estimated PAP 70-75 mmHg. 6. Cardiomyopathy; LVEF 45% with global hypokinesis of the LV 7. Dementia 8. Hypertension, labile episodes 9. SSS, tachy-chang syndrome: S/P PPM clinically stable 10. Severe pulmonary HTN 11. Persistent AFIB/flutter: rate controlled with intermittent pacing. Continue Eliquis for stroke prophylaxis. 12. PPM in situ: on 07/03/2021. stable Recommendations Continue metoprolol for rate control Low-dose Eliquis for stroke prophylaxis No ACEi/ARB with hyperkalemia Follow nephrology recs Supportive care Follow up in our office as scheduled Hospital Course: Hospital Course: 08/07/2021 No acute events overnight. Patient seen examined bedside. Resting comfortably. Sodium improved from 151 to 1 47. We will continue with hypotonic saline IV. Trend chemistries in the a.m. Plan for SNF placement when appropriate for discharge. Patient's chart, labs, images were reviewed and discussed with RN 08/06/2021 No acute events overnight. Patient seen examined bedside. AF and VSS. Patient saturating 98% on 4 L nasal cannula. Continues to be hyponatremic of 151. Potassium of 5.5. We will continue hypotonic saline repeat chemistries in the morning. Plan for home health when patient is appropriate for discharge. Patient's chart, labs, images were reviewed and discussed with RN 08/05 Evaluated at bedside. Resting in bed no apparent distress. Hypokalemic hypernatremic switching to hypotonic saline for nephrology. Closely monitor this. If labs improved on morning can likely DC then. Patient refusing SNF 08/04 Seen evaluated at bedside. On 4L NC, resting comfortably. Continue medical optimization. PT recommend SNF placement. Hypernatremic on labs today, renal already consulted. Continue current otherwise. 08/03 Evaluate examined at bedside heartburn improved video swallow done yesterday. Continue current otherwise. Discussed with bedside RN. 08/02 Patient evaluated examined bedside. Was contacted by nurse patient was having a nosebleed burning chest pain. Patient was eating at the time symptoms started. Patient says it feels like previous heartburn. Also says almost feels like something stuck in her chest. Check chest x-ray. Basic labs. Epistaxis likely due to dry air oxygen was at humidified. Patient on 4 L nasal cannula. 08/01 Evaluated and examined at bedside. Underwent thoracentesis yesterday tolerated well. Notable amount of agitation today. Still on 8 L nasal cannula. Continue to wean O2 as tolerated. Continue other treatments otherwise. Discussed with bedside RN. 07/31/2021 Patient seen and examined Discussed with RN Chart reviewed She is going for thoracentesis today 07/30/2021 Patient seen and examined twice this morning On first visit she seemed to be kind of plateaued but was on 8 L of oxygen still and very weak The nurse then call me back because the patient became more confused weak coughing and hypoxic The repeat chest x-ray was read as stable effusion but by my eye the left side i s larger. I called Dr. Meier he agrees were going to order a thoracentesis but we will need to hold her Eliquis for 1 day first Chart reviewed Discussed with RN 07/29/2021 Patient seen and examined Discussed with RN Chart reviewed Patient is resting with no apparent distress Has O2 per nasal cannula at 8 L Potassium is up to 6 today 07/28/2021 Patient seen and examined Has 2 family members present one is her son the other is his they seem to be good support for her Discussed with RN Chart reviewed 07/27/2021 Patient seen and examined at bedside this morning Patient states she "still is not breathing well" Discussed with RN RN states patient had a rapid response yesterday Chart reviewed 07/26/2021 Patient seen and examined Discussed with RN Chart reviewed 89 yo F female who presented to the ER last night with shortness of breath. While in the ER, we did some imaging and some labs. Her chest x-ray is showing vascular congestion and pneumonia and effusions. Her BNP level was high at 14,357. Admitted for further care and cardiology evaluation. Activity: Activity: Resume previous activity Diet: Diet: Cardiac Medications: Home Meds Active Scripts Multivits,Ca,Minerals/Iron/Fa (THERA-M TABLET) 1 Each Tablet, 1 TAB PO DAILY for supplement for 30 Days, #30 TAB 3 Refills Prov:DANIELLE OSBORN MD 08/08/21 Ascorbic Acid (VITAMIN C) 500 Mg Tablet, 500 MG PO DAILY for supplement for 30 Days, #30 TAB 3 Refills Prov:DANIELLE OSBORN MD 08/08/21 Hydralazine Hcl (HYDRALAZINE HCL) 50 Mg Tablet, 50 MG PO BID for blood pressure for 30 Days, #60 TAB 3 Refills Prov:DANIELLE OSBORN MD 08/08/21 Citalopram Hydrobromide (CELEXA) 10 Mg Tablet, 10 MG PO DAILY for mdd for 30 Days, #30 TAB Prov:PAUL PHOENIX MD 07/04/21 Aspirin (ASPIRIN EC) 81 Mg Tablet., 81 MG PO DAILYWBKFT for cad for 30 Days, #30 TAB.SR Prov:PAUL PHOENIX MD 07/04/21 Amlodipine Besylate (AMLODIPINE BESYLATE) 10 Mg Tablet, 10 MG PO DAILY for htn for 30 Days, #30 TAB Prov:PAUL PHOENIX MD 07/04/21 Reported Medications Docusate Sodium (DOCUSATE SODIUM) 100 Mg Capsule, 1 CAP PO BID for constipation for 15 Days, #30 CAP 0 Refills 07/25/21 Levothyroxine Sodium (LEVOTHYROXINE SODIUM) 100 Mcg Tablet, 1 TAB PO DAILY for hypothyroidism, #30 TAB 5 Refills 07/25/21 Apixaban (ELIQUIS) 2.5 Mg Tablet, 2.5 MG PO BID for hx of DVT, Afib, TAB 07/25/21 Metoprolol Tartrate (METOPROLOL TARTRATE) 25 Mg Tablet, 1 TAB PO BID for ., #180 TAB 1 Refill 07/04/21 Pantoprazole Sodium (PANTOPRAZOLE SODIUM ) 40 Mg Tablet.dr, 40 MG PO DAILYAC for GERD, TAB 07/04/21 Scheduled Amlodipine Besylate (Amlodipine Besylate), 10 MG PO DAILY Apixaban (Eliquis), 2.5 MG PO BID, (Reported) Ascorbic Acid (Vitamin C), 500 MG PO DAILY Aspirin (Aspirin Ec), 81 MG PO DAILYWBKFT Citalopram Hydrobromide (Celexa), 10 MG PO DAILY Docusate Sodium (Docusate Sodium), 1 CAP PO BID, (Reported) Hydralazine Hcl (Hydralazine Hcl), 50 MG PO BID Levothyroxine Sodium (Levothyroxine Sodium), 1 TAB PO DAILY, (Reported) Metoprolol Tartrate (Metoprolol Tartrate), 1 TAB PO BID, (Reported) Multivits,Ca,Minerals/Iron/Fa (Thera-M Tablet), 1 TAB PO DAILY Pantoprazole Sodium (Pantoprazole Sodium ), 40 MG PO DAILYAC, (Reported) Total Time: Total Time: Total time spent was 32 minutes in preparing scripts and discharge planning with SW and RN. Patient seen and examined on day of Discharge. Justicifation of Admission Dx: Justifications for Admission: Justification of Admission Dx: Yes DANIELLE OSBORN MD Aug 14, 2021 11:00
[2021-08-16] MEDS ORDERED: TRAZ-118 PO (04:48)
[2021-08-16] MEDS ORDERED: ACET500T68 PO (04:48)
[2021-08-16] MEDS ORDERED: LORA0.5T96 PO (04:48)
[2021-08-16] MEDS ORDERED: LANS30CA PO (04:48)
== END 2021-08-09 11:00 | DRG 177 ==
LOC: ER 17:13 → 5 NORTH 19:13
PROVIDERS: ADMIT Internal Medicine; ATTEND Internal Medicine
PROC: 0W9B3ZZ Drainage of Left Pleural Cavity, Percutaneous Approach (ICD-10-PCS; principal; 2021-07-31)
DX: J15.6 Pneumonia due to other Gram-negative bacteria (principal); J96.01 Acute respiratory failure with hypoxia; I50.23 Acute on chronic systolic (congestive) heart failure; E87.0 Hyperosmolality and hypernatremia; E87.1 Hypo-osmolality and hyponatremia; E87.3 Alkalosis; I13.0 Hypertensive heart and chronic kidney disease with heart failure and stage 1 through stage 4 chronic kidney disease, or unspecified chronic kidney disease; I42.8 Other cardiomyopathies; I48.19 Other persistent atrial fibrillation; I48.92 Unspecified atrial flutter; J44.0 Chronic obstructive pulmonary disease with (acute) lower respiratory infection; N18.4 Chronic kidney disease, stage 4 (severe); J91.8 Pleural effusion in other conditions classified elsewhere; Z20.822 Contact with and (suspected) exposure to COVID-19; Z66 Do not resuscitate; E03.9 Hypothyroidism, unspecified; E78.5 Hyperlipidemia, unspecified; E87.5 Hyperkalemia; F03.90 Unspecified dementia, unspecified severity, without behavioral disturbance, psychotic disturbance, mood disturbance, and anxiety; I25.10 Atherosclerotic heart disease of native coronary artery without angina pectoris; I27.20 Pulmonary hypertension, unspecified; I49.5 Sick sinus syndrome; K21.9 Gastro-esophageal reflux disease without esophagitis; L89.159 Pressure ulcer of sacral region, unspecified stage; R04.0 Epistaxis; Z96.649 Presence of unspecified artificial hip joint; I08.2 Rheumatic disorders of both aortic and tricuspid valves; Z79.01 Long term (current) use of anticoagulants; Z83.3 Family history of diabetes mellitus; Z86.711 Personal history of pulmonary embolism; Z86.718 Personal history of other venous thrombosis and embolism; Z87.891 Personal history of nicotine dependence; Z90.49 Acquired absence of other specified parts of digestive tract; Z95.0 Presence of cardiac pacemaker; Z99.81 Dependence on supplemental oxygen; Z88.0 Allergy status to penicillin; Z85.038 Personal history of other malignant neoplasm of large intestine
CPT/HCPCS: 32555; 36415; 71045; 74230; 76770; 80048; 80053; 82945; 82962; 83615; 83735; 83880; 83986; 84157; 84484; 85025; 87075; 87428; 88112; 88305; 89050; 93005; 94640; 94760; 96365; 96375; J0456; J0696; J1940; J2270; J2405; J2920; J3010; J3490; J7050; J7512; U0003; 92526-GN; 92610-GN; 92611-GN; 97116-GP; 97530-GP; 97535-GO; 99285-25; G0378; J7030; J7613

== ENCOUNTER 2021-08-19 10:59 | Inpatient (IN) | payer OTHER ==
[2021-08-19 06:31] VITALS: BP 103/52
[~2021-08-19 10:59] MED LIST changes: +ACET500T68 PO; +APIX2.5T PO; +ASCO500T4 PO; +DOCU100C28 PO; +HYDR-2869 PO; +LANS30CA PO; +LEVO100T5 PO; +LORA0.5T96 PO; +MULT1TAB92 PO; +TRAZ-118 PO
[2021-08-19] MEDS ORDERED: IV NORMAL SALINE 1000ML BAG 1,000 ML IV SCH (11:30)
[2021-08-19] MEDS ORDERED: MORPHINE SULFATE 30 ML IV PRN (11:30)
[2021-08-19] MEDS ORDERED: BISACODYL 10 MG SUPP.RECT. PR PRN (11:30)
[2021-08-19] MEDS ORDERED: ACETAMINOPHEN 650 MG SUPP.RECT. PR PRN (11:30)
[2021-08-19] MEDS ORDERED: NALOXONE 0.4 MG/ML VIAL. IV PRN (11:30)
[2021-08-19] MEDS ORDERED: SCOPOLAMINE 1.5MG PATCH. TD SCH (12:00)
--- NOTE | 2021-08-19 18:27 | NUR ---
Patient at 1625 family at bedside, doctor notified and [facility] called. home is [facility] per family decision.
--- NOTE | 2021-09-19 21:09 | DS ---
DATE OF DISCHARGE: 08/19/2021 DISCHARGE SUMMARY HOSPITAL COURSE: The patient is an 89-year-old female patient who was admitted to [facility] as a transfer from [facility] as her lab work showed that she has dramatic deterioration of her kidney function. In fact, her creatinine has risen to 4.8 from baseline of 1.9 on 08/08/2021 and therefore, the patient was transferred to [facility] for further evaluation and treatment. The patient was not on any SARTHAK inhibitors and she is not on any other nephrotoxic medication. The patient herself denied any chest pain. Did complain of shortness of breath when she arrived to the Emergency Room, her lab work showed that her potassium was 6.5. BUN 68, creatinine 4.9 from a creatinine of 1.9 on 08/08/2021. The heel sander rubber was consulted and she was given another 40 mg of Lasix and sodium polystyrene sulfonate and was admitted for further evaluation and treatment. The patient has made it very clear that she does not want hemodialysis and she does not want any intubation and mechanical ventilation. Therefore, the patient was started on morphine drip. She was admitted to inpatient hospice, started on morphine drip as well as Ativan drip, and on 08/19/2021 around 1625, the patient was noted to have no spontaneous breathing, no audible heart sounds and no palpable pulsation, was pronounced . CAUSE OF : 1. Cardiopulmonary arrest. 2. Acute on chronic hypoxic respiratory failure. 3. Acute diastolic congestive heart failure. 4. Acute on chronic kidney injury. ANGELO DR: Quinn TID: [id number]
== END 2021-08-19 16:25 | DRG 682 ==
LOC: 6 SOUTH 10:59
PROVIDERS: ADMIT Internal Medicine; ATTEND Internal Medicine
DX: N17.9 Acute kidney failure, unspecified (principal); I50.31 Acute diastolic (congestive) heart failure; J96.21 Acute and chronic respiratory failure with hypoxia; I11.0 Hypertensive heart disease with heart failure; Z86.718 Personal history of other venous thrombosis and embolism; Z79.01 Long term (current) use of anticoagulants; E78.5 Hyperlipidemia, unspecified; I48.91 Unspecified atrial fibrillation; Z85.038 Personal history of other malignant neoplasm of large intestine; K21.9 Gastro-esophageal reflux disease without esophagitis; J44.9 Chronic obstructive pulmonary disease, unspecified; F03.90 Unspecified dementia, unspecified severity, without behavioral disturbance, psychotic disturbance, mood disturbance, and anxiety; Z82.49 Family history of ischemic heart disease and other diseases of the circulatory system; Z90.49 Acquired absence of other specified parts of digestive tract; Z95.0 Presence of cardiac pacemaker; I46.9 Cardiac arrest, cause unspecified
CPT/HCPCS: J2060; J2270; J7030; G0378